=== PATIENT | female | born 1950 | race Caucasian/White ===

== ENCOUNTER → 2016-11-20 | Outpatient (CLI) | payer MEDICARE, OTHER ==
[~2016-11-20] MED LIST: ALPR0.5T7 PO; AMLO5TAB2 PO; ASP81TEC PO; ATRV10T PO; CHOL20003 PO; CLIN300C11 PO; CLOP75TA28 PO; ENAL20TA PO; METO-272 PO; MTP50T PO; PRAM0.12 PO; TRAM50TA2 PO; VNL75CCR PO; ZLP10T PO
--- NOTE | 2016-11-20 11:58 | Diagnostic Imaging Report ---
Examination: DEXA scan. Indication: Osteopenia Technique: Bone mineral density estimated based on dual energy radiography over the lumbar spine and femoral necks, was performed. Findings: The lumbar spine T-score is -0.4. T score over the left femoral neck is -0.6 and on the right is -0.2. Impression: Normal bone mineral density.. Dictated by: Dictated on workstation # [id number]
== END ==
LOC: RAD 10:49
PROVIDERS: ATTEND Family Medicine
DX: Z13.820 Encounter for screening for osteoporosis (principal); Z78.0 Asymptomatic menopausal state
CPT/HCPCS: 77080

== ENCOUNTER 2019-08-04 05:36 | Outpatient (CLI) | payer MEDICARE, OTHER ==
[~2019-08-04] VITALS: Ht 157 cm; Wt 72.7 kg
[2019-08-04] MEDS ORDERED: ASPI-999 PO (12:17)
[2019-08-04] MEDS ORDERED: PRAM0.128 PO (12:17)
[2019-08-04] MEDS ORDERED: CNC1KV IM (12:17)
[2019-08-04] MEDS ORDERED: ZOLP10TA5 PO (12:50)
[2019-08-04] MEDS ORDERED: METO-370 PO (12:50)
[2019-08-04] MEDS ORDERED: ENAL20TA PO (12:50)
== END 2019-08-04 12:32 | disposition home or self-care (01) ==
LOC: PREOP 05:36
PROVIDERS: ATTEND Urology
DX: Z01.818 Encounter for other preprocedural examination (principal)

== ENCOUNTER 2019-08-09 06:16 | Day surgery (SDC) | payer MEDICARE, OTHER ==
[2019-08-09] VITALS (9 sets, daily range): BP systolic 93–170; BP diastolic 62–94
[~2019-08-09] VITALS: Ht 157 cm; Wt 72.7 kg
[~2019-08-09 06:16] MED LIST changes: +ASPI-999 PO; +CNC1KV IM; +METO-370 PO; +PRAM0.128 PO; +ZOLP10TA5 PO
[2019-08-09] MEDS ORDERED: LACTATED RINGERS 1,000 ML IV PRN (06:28)
[2019-08-09] MEDS ORDERED: cefTRIAXone FOR IV USE 1,000 MG in WATER (STERILE) FOR INJECTION 10 ML IV ONE (06:30)
[2019-08-09] MEDS ORDERED: CATHETER FLUSH 10 ML SYR IV PRN (06:45)
[2019-08-09] MEDS ORDERED: ONDANSETRON 4 MG/2 ML (SDV) Z0FRAN ONE (06:54)
[2019-08-09] MEDS ORDERED: proPOfol 200 MG/20 ML (DIPRIVAN) VIAL IV ONE (06:54)
[2019-08-09] MEDS ORDERED: fentaNYL INJECTION 100 MCG/2 ML AMP ONE (06:55)
[2019-08-09] MEDS ORDERED: MIDAZOLAM 2 MG/2 ML (VERSED) VIAL ONE (06:55)
[2019-08-09] MEDS ORDERED: LIDOCAINE PF 2% 5 ML (XYLOCAINE) VIAL ONE (06:55)
--- NOTE | 2019-08-09 08:04 | Progress Note-Pre Operative ---
Pre-Operative Progress Note H&P Reviewed The H&P was reviewed, patient examined and no changes noted. Date Seen by Provider: Aug 09, 2019 Time Seen by Provider: 08:03 Date H&P Reviewed: Aug 09, 2019 Time H&P Reviewed: 08:03 Pre-Operative Diagnosis: MIXED INCONTINENCE, ISD, AND OAB DAVID LYNN MD Aug 09, 2019 08:04
--- NOTE | 2019-08-09 08:05 | Progress Note-Post Operative ---
Post-Operative Progess Note Surgeon (s)/Food Service Tray Attendant (s) Surgeon DAVID LYNN MD Food Service Tray Attendant: NONE Pre-Operative Diagnosis MIXED INCONTINENCE, ISD, AND OAB Post-Operative Diagnosis SAME Procedure & Operative Findings Date of Procedure 08/09/19 Procedure Performed/Findings MACROPLASTIQUE IMPLANT Anesthesia Type GENERAL Estimated Blood Loss Estimated blood loss (mL): NEGLIGIBLE Specimens/Packing Specimens Removed NONE Packing: NONE DAVID LYNN MD Aug 09, 2019 08:05
--- NOTE | 2019-08-09 08:07 | Discharge Inst-Urology ---
Discharge Inst-Urology Reconcile Patient Problems Problems Reviewed?: Yes Final Diagnosis INCONTINENCE Patient Instructions/Follow Up Plan/Assessment/Instructions Please make appointment to been seen in office in 4 weeks. Showers, no bath for 2 weeks In 48 hours, if no bleeding, may resume ASA and Clopidrogel Keep bowels soft and moving Increase oral fluids for 48 hours and then as needed. Diet and Activity as tolerated. If questions or concerns contact your physician Or seek help at emergency department. DAVID LYNN MD Aug 09, 2019 08:07
[2019-08-09] MEDS ORDERED: SEVOFLURANE (ULTANE) 15 ML INHAL SOLN ONE (08:29)
[2019-08-09] MEDS ORDERED: morphine INJ 10 MG/ML 1ML (SYR OR VIAL) IVP ONE (08:45)
[2019-08-09] MEDS ORDERED: ONDANSETRON 4 MG/2 ML (SDV) Z0FRAN IVP PRN (08:45)
[2019-08-09] MEDS ORDERED: MEPERIDINE (DEMEROL) INJ 50 MG/ML IVP ONE (08:45)
[2019-08-09] MEDS ORDERED: PHEN-640 PO (09:12)
[2019-08-09] MEDS ORDERED: NITR-65 PO (09:12)
--- NOTE | 2019-08-09 10:50 | Anesthesia-General Post-Op ---
General Patient Condition Mental Status/LOC: Same as Preop Cardiovascular: Satisfactory Nausea/Vomiting: Absent Respiratory: Satisfactory Pain: Controlled Complications: Absent Post Op Complications Complications None Follow Up Care/Instructions Patient Instructions None needed. Anesthesia/Patient Condition Patient Condition Patient is doing well, no complaints, stable vital signs, no apparent adverse anesthesia problems. No complications reported per nursing. CRISTINA CRANDALL CRNA Aug 09, 2019 10:50
--- NOTE | 2019-08-09 15:01 | OPERATIVE REPORT ---
DATE OF SERVICE: 08/09/2019 PREOPERATIVE DIAGNOSES: Mixed incontinence with intrinsic sphincter deficiency and overactive bladder. POSTOPERATIVE DIAGNOSES: Mixed incontinence with intrinsic sphincter deficiency and overactive bladder. OPERATION PERFORMED: Macroplasty implant. SURGEON: Jarrett Lynn MD ANESTHESIA: General. RESEARCH CONSULTANT: None. COMPLICATIONS: None. DESCRIPTION OF PROCEDURE: Under satisfactory general anesthesia, the patient in lithotomy position, genitalia were prepped and draped in the usual sterile fashion. Cystoscope was introduced in the bladder and the Macroplastique implant was injected at the 6 o'clock position at the mid urethra causing very good elevation, a full syringe being injected. Then, half a syringe at the 2 o'clock and half at the 10 o'clock position, there was excellent coaptation of the mid urethra. I did a manual Valsalva maneuver after removing the cystoscope and it was negative. Re-inserted the cystoscope to drain the bladder. The patient tolerated the procedure and anesthesia well and was sent to recovery room in stable condition, no bleeding. Job ID: [id number] DocumentID: [id number] Dictated Date: 08/09/2019 08:37:02 Package Line Operator Date: 08/09/2019 15:00:49 Dictated By: JARRETT LYNN MD
== END 2019-08-09 10:09 | disposition home or self-care (01) ==
LOC: SDC 06:16
PROVIDERS: ATTEND Urology
DX: N39.46 Mixed incontinence (principal); N36.42 Intrinsic sphincter deficiency (ISD); N32.81 Overactive bladder; I10 Essential (primary) hypertension; I73.9 Peripheral vascular disease, unspecified; Z79.899 Other long term (current) drug therapy
CPT/HCPCS: 87081

== ENCOUNTER 2019-12-22 05:41 | Outpatient (CLI) | payer MEDICARE, OTHER ==
[~2019-12-22] VITALS: Ht 157.5 cm; Wt 81.8 kg
[~2019-12-22 05:41] MED LIST changes: -METO-370 PO; +METO50TA7 PO; +NITR-65 PO; +PHEN-640 PO; -TRAM50TA2 PO; +TRM50T PO
[2019-12-22] MEDS ORDERED: CLOP75TA28 PO (09:58)
== END 2019-12-22 10:06 | disposition home or self-care (01) ==
LOC: PREOP 05:41
PROVIDERS: ATTEND Urology
DX: Z01.818 Encounter for other preprocedural examination (principal)

== ENCOUNTER 2019-12-27 07:03 | Day surgery (SDC) | payer MEDICARE, OTHER ==
[2019-12-27] VITALS (9 sets, daily range): BP systolic 119–150; BP diastolic 62–82
[~2019-12-27] VITALS: Ht 157.5 cm; Wt 81.8 kg
--- NOTE | 2019-12-27 07:13 | Progress Note-Pre Operative ---
Pre-Operative Progress Note H&P Reviewed The H&P was reviewed, patient examined and no changes noted. Date Seen by Provider: Dec 27, 2019 Time Seen by Provider: 07:12 Date H&P Reviewed: Dec 27, 2019 Time H&P Reviewed: 07:13 Pre-Operative Diagnosis: REFRACTORY OAB AND URGENCY DAVID LYNN MD Dec 27, 2019 07:13
[2019-12-27] MEDS ORDERED: cefTRIAXone FOR IV USE 1,000 MG in WATER (STERILE) FOR INJECTION 10 ML IV ONE (07:15)
[2019-12-27] MEDS ORDERED: LACTATED RINGERS 1,000 ML IV PRN (07:15)
[2019-12-27] MEDS ORDERED: ONBOTOX 100 UNITS/NS 10 ML INJ ONE ×2 (07:45)
[2019-12-27] MEDS ORDERED: fentaNYL INJECTION 100 MCG/2 ML AMP ONE (09:34)
[2019-12-27] MEDS ORDERED: DEXAMETHASONE 10 MG/ML (DECADRON) 1 ML VIAL ONE (09:34)
[2019-12-27] MEDS ORDERED: proPOfol 200 MG/20 ML (DIPRIVAN) VIAL IV ONE (09:34)
[2019-12-27] MEDS ORDERED: ONDANSETRON 4 MG/2 ML (SDV) Z0FRAN ONE (09:34)
[2019-12-27] MEDS ORDERED: LIDOCAINE PF 2% 5 ML (XYLOCAINE) VIAL ONE (09:34)
[2019-12-27] MEDS ORDERED: SEVOFLURANE (ULTANE) 15 ML INHAL SOLN ONE (09:34)
--- NOTE | 2019-12-27 10:32 | Progress Note-Post Operative ---
Post-Operative Progess Note Surgeon (s)/System Operation Superintendent (s) Surgeon DAVID LYNN MD System Operation Superintendent: NONE Pre-Operative Diagnosis REFRACTORY OAB AND URGENCY Post-Operative Diagnosis SAME Procedure & Operative Findings Date of Procedure 12/27/19 Procedure Performed/Findings CYSTOSCOPY WITH BOTOX INJECTION Anesthesia Type GENERAL Estimated Blood Loss Estimated blood loss (mL): NEGLIGIBLE Specimens/Packing Specimens Removed NONE Packing: NONE DAVID LYNN MD Dec 27, 2019 10:32
--- NOTE | 2019-12-27 10:36 | Discharge Inst-Urology ---
Discharge Inst-Urology Reconcile Patient Problems Problems Reviewed?: Yes Final Diagnosis REFRACTORY OAB AND URGENCY Patient Instructions/Follow Up Plan/Assessment/Instructions Please make appointment to been seen in office in 4 weeks. Continue Myrbetriq only, no Vesicare for 2 weeks only and hold if retention, difficult urination or hesitancy In 72 hours, if no bleeding, may resume Plavix Increase oral fluids for 48 hours and then as needed. Diet and Activity as tolerated. If questions or concerns contact your physician Or seek help at emergency department. DAVID LYNN MD Dec 27, 2019 10:36
[2019-12-27] MEDS ORDERED: ONDANSETRON 4 MG/2 ML (SDV) Z0FRAN IVP PRN (10:45)
[2019-12-27] MEDS ORDERED: morphine INJ 10 MG/ML 1ML (SYR OR VIAL) IVP ONE (10:45)
--- NOTE | 2019-12-27 12:25 | NUR ---
HAS BEEN ALERT, RESTING QUIETLY IN BED AND UP WITH ASSIST X2 TO VOID WITHOUT PROBLEM. DENIES COMPLAINTS. TAKING PO FLUIDS WITHOUT PROBLEM. REQUESTING DISMISSAL.
--- NOTE | 2019-12-27 13:08 | Anesthesia-General Post-Op ---
General Patient Condition Mental Status/LOC: Same as Preop Cardiovascular: Satisfactory Nausea/Vomiting: Absent Respiratory: Satisfactory Pain: Controlled Complications: Absent Post Op Complications Complications None Follow Up Care/Instructions Patient Instructions None needed. Anesthesia/Patient Condition Patient Condition Patient was [place] after the [place] [facility] [place] and she was doing well, no complaints, stable vital signs, no apparent adverse anesthesia problems. MARGI GARCIA DO Dec 27, 2019 13:08
--- NOTE | 2019-12-27 13:48 | OPERATIVE REPORT ---
DATE OF SERVICE: 12/27/2019 PREOPERATIVE DIAGNOSES: Refractory overactive bladder and urgency. POSTOPERATIVE DIAGNOSES: Refractory overactive bladder and urgency. OPERATION PERFORMED: Cystoscopy with injection of Botox. SURGEON: Jarrett Lynn MD ANESTHESIA: General. COMPLICATIONS: None. DESCRIPTION OF PROCEDURE: Under satisfactory general anesthesia, the patient in lithotomy position, genitalia were prepped and draped in the usual sterile fashion. A cystoscope was introduced in the bladder and was irrigated free of debris. I left the bladder half full and then injected the Botox starting just above the trigone starting from the left side, working my way to the right side, then moved above it. A total of 100 units of Botox was injected using the described technique into the detrusor muscle. There was very minimal bleeding. The bladder was evacuated. Cystoscope was removed. The patient tolerated the procedure and anesthesia well and was sent to recovery room in stable condition. Job ID: [id number] DocumentID: [id number] Dictated Date: 12/27/2019 10:37:42 Appliance Line Assembler Date: 12/27/2019 13:47:43 Dictated By: JARRETT LYNN MD
[2019-12-27] MEDS ORDERED: NITR-65 PO (14:06)
[2019-12-27] MEDS ORDERED: PHEN-640 PO (14:08)
== END 2019-12-27 12:25 | disposition home or self-care (01) ==
LOC: SDC 07:03
PROVIDERS: ATTEND Urology
DX: N32.81 Overactive bladder (principal); R39.15 Urgency of urination; N39.46 Mixed incontinence; I10 Essential (primary) hypertension; I73.9 Peripheral vascular disease, unspecified; K21.9 Gastro-esophageal reflux disease without esophagitis; F41.9 Anxiety disorder, unspecified; F32.9 Major depressive disorder, single episode, unspecified; Z11.2 Encounter for screening for other bacterial diseases; Z79.899 Other long term (current) drug therapy
CPT/HCPCS: 87081

== ENCOUNTER 2020-03-23 08:48 | Outpatient (RCR) | payer MEDICARE, OTHER ==
[~2020-03-23] VITALS: Ht 157.5 cm; Wt 81.8 kg
[~2020-03-23 08:48] MED LIST changes: +ATOR20TA66 PO; +CHOL500050 PO; +DULO60CA59 PO; +GABA-486 PO; +MIRT45TA75 PO; +OMEP20CA18 PO; +PRAM0.252 PO; +TRZ50T PO
== END 2020-03-23 14:42 | disposition home or self-care (01) ==
LOC: PREOP 08:48
PROVIDERS: ATTEND Urology
DX: Z01.818 Encounter for other preprocedural examination (principal); Z11.59 Encounter for screening for other viral diseases; R39.15 Urgency of urination
CPT/HCPCS: 87635

== ENCOUNTER 2020-03-27 06:03 | Day surgery (SDC) | payer MEDICARE, OTHER ==
[2020-03-27] VITALS (9 sets, daily range): BP systolic 104–143; BP diastolic 61–79
[~2020-03-27] VITALS: Ht 157.5 cm; Wt 81.8 kg
[2020-03-27] MEDS ORDERED: LACTATED RINGERS 1,000 ML IV PRN (06:06)
--- OUTSIDE RECORDS SUMMARY | 2020-03-27 06:08 | XMS REPORT ---
Author Author Kenya Dennison Doctor Organization [facility] Address Unknown Phone Unavailable Care Team Providers Care Sander Hand Name Role Phone Migration, Doctor Unavailable Unavailable PROBLEMS Type Condition ICD9-CM Code MXM38-CM Code Onset Dates Condition S tatus SNOMED Code Problem Primary insomnia F51.01 Active 193 401164 Problem Atherosclerotic occlusive disease I70.90 Active 541997355 Problem Urge incontinence N39.41 Active 16 8808287 Problem Prediabetes R73.09 Active 7917540 Problem Vitamin D deficiency E55.9 Active 21903714 Problem Restless leg syndrome G25.81 Active 86646601 Problem Major depressive disorder F32.9 Acti ve 422268724 Problem Generalized anxiety disorder F41.1 A ctive 20979828 Problem Essential hypertension I10 Active 48452432 Problem Major depressive disorder, recurrent, moderate F33 .1 Active 56655973 Problem Dyslipidemia E78.5 Active 5104961 07 Problem Irritable bowel syndrome with diarrhea K58.0 Active 73127406 Problem Mixed stress 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 Active 138695071 Problem Other chronic pain G89.29 Active 8 5665358 Problem Low back pain M54.5 Active 957561 009 ALLERGIES No Information ENCOUNTERS Encounter Location Date Diagnosis [facility] [address] [facility] [id number] [address] [place] [address] Apr, [facility] [address] [facility] [id number] [address] [place] [address] March, [facility] [address] [facility] [id number] [address] [place] [address] March, Generalized anxiety disorder F41.1 ; Primary insomnia F51.01 and Major depressive disorder, recurrent, moderate F33.1 [facility] [address] [facility] [id number] [address] [place] [address] March, Generalized anxiety disorder F41.1 [facility] [address] [place] [id number] March, Restless leg syndrome G25.81 [place] [address] [place] [address] Jan, Generalized anxiety disorder F41.1 ; Primary insomnia F51.01 and Major depressive disorder, recurrent, moderate F33.1 [place] [address] [place] [address] Jan, [place] [address] [address] 05 Jan, 2020 Generalized anxiety disorder F41.1 ; Primary insomnia F51.01 and Major depressive disorder, recurrent, moderate F33.1 [place] [address] [place] [id number] Dec, Essential hypertension I10 [place] [address] [place] [address] Dec, Major depressive disorder, r ecurrent, moderate F33.1 and Generalized anxiety disorder F41.1 [place] [address] [place] [address] Dec, [place] [address] [place] [id number] Dec, Prediabetes R73.09 ; Essenti al hypertension I10 and Dyslipidemia E78.5 [place] [address] [place] [id number] 19 Dec, 2019 Prediabetes R73.09 ; Essenti al hypertension I10 ; Dyslipidemia E78.5 ; Major depressive disorder F32.9 ; Primary insomnia F51.01 ; Epigastric pain R10.13 and Generalized anxiety disorder F41.1 [place] [address] [place] [id number] 14 Dec, 2019 Major depressive disorder F3 2.9 and Generalized anxiety disorder F41.1 [place] [address] [place] [address] 07 Dec, 2019 [place] [id number] [facility] [id number] [place] [address] 04 Dec, 2019 Generalized anxiety disorder F41.1 and Major depressive disorder, recurrent, moderate F33.1 [place] [address] [place] [id number] [address] [place] [address] Nov, Major depressive disorder, r ecurrent, moderate F33.1 and Generalized anxiety disorder F41.1 [place] [address] [facility] [id number] [address] [place] [address] Nov, Major depressive disorder F3 2.9 ; Essential hypertension I10 ; Primary insomnia F51.01 ; Urge incontinence N39.41 ; Dyslipidemia E78.5 ; Other chronic pain G89.29 and Onychomycosis of toenail B35.1 [facility] [address] [place] [id number] [address] [place] [id number] Nov, Dental examination Z01.20 ; Oral health maintenance status requiring routine preventive dental care K08.9 and Caries K02.9 [place] [address] [address] Sep, Dyslipidemia E78.5 [place] [address] [place] [id number] [address] [place] [address] 17 Sep, 2017 Prediabetes R73.09 ; Dyslipi demia E78.5 and Essential hypertension I10 [place] [id number] [place] [address] Sep, [place] [address] [place] [id number] [place] [address] Sep, Prediabetes R73.09 ; Essenti al hypertension I10 ; Dyslipidemia E78.5 and Urge incontinence N39.41 [place] [address] [place] [id number] [address] [place] [address] Jan, Other chronic pain G89.29 [place] [address] [place] [address] [address] Jan, [facility] [address] [facility] [id number] [address] [place] [address] Jan, Capillary hemangioma D18.00 [facility] [address] [id number] [address] [place] [id number] Jan, Dental examination Z01.20 [facility] [address] [facility] [id number] [address] [place] [address] Dec, [facility] [address] [facility] [id number] [address] [place] [address] Dec, Low back pain M54.5 ; Other chronic pain G89.29 and Mixed stress 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 [place] [address] [facility] [id number] [address] [place] [address] Dec, [facility] [address] [facility] [id number] [address] [place] [address] Dec, Urge incontinence N39.41 [facility] [address] [facility] [id number] [address] [place] [address] Nov, Colon cancer screening Z12.1 1 ; Medicare annual wellness visit, subsequent Z00.00 and Osteoporosis screening Z13.820 [facility] [address] [place] [id number] [address] [place] [address] Nov, [facility] [address] [facility] [id number] [address] [place] [address] Nov, Medicare annual wellness vis it, subsequent Z00.00 ; Osteoporosis screening Z13.820 ; Colon cancer screening Z12.11 and Encounter for immunization Z23 [facility] [address] [facility] [id number] [address] [place] [address] Oct, Decreased circulation in fin gers or toes R09.89 [facility] [address] [facility] [id number] [address] [place] [id number] 19 Dec, 2016 Decreased pulse R09.89 [facility] [address] [address] Oct, Abrasion, left lesser toe(s) , initial encounter S90.415A and Local infection of the skin and subcutaneous tissue, unspecified L08.9 [place] [address] [address] Aug, Dyslipidemia E78.5 ; Vitamin D deficiency E55.9 and Essential hypertension I10 [place] [address] [address] Aug, Vitamin D deficiency E55.9 ; Dyslipidemia E78.5 ; Essential hypertension I10 ; Allergic contact dermatitis due to metals L23.0 ; Primary insomnia F51.01 ; Urge incontinence N39.41 and Restless leg syndrome G25.81 [place] [address] [address] Jul, [place] [address] [address] Jul, [facility] [address] [address] May, Acute maxillary sinusitis, r ecurrence not specified J01.00 and Impacted cerumen of right ear H61.21 [place] [id number] [address] [place] [address] Apr, [facility] [address] [place] [id number] [address] [place] [id number] Dec, Encounter for dental examina tion Z01.20 [place] [address] [address] Dec, Vitamin D deficiency E55.9 [place] [address] [address] 18 Dec, 2015 Other and unspecified hyperl ipidemia 272.4 ; Vitamin D deficiency E55.9 and Prediabetes 790.29 [place] [address] [place] [id number] [address] [place] [address] 18 Dec, 2015 Vitamin D deficiency E55.9 [place] [address] [address] 16 Oct, 2015 Eustachian tube dysfunction, right H69.81 ; Seasonal affective disorder F39 and Encounter for immunization Z23 [facility] [address] [address] Sep, Acute pharyngitis, unspecifi ed J02.9 ; Otitis media H66.90 ; Sinusitis J32.9 and Seasonal allergies J30.2 [place] [address] [address] 28 Aug, 2015 [place] [address] [address] Aug, Primary insomnia F51.01 ; Re stless leg syndrome G25.81 ; Urge incontinence N39.41 and Unspecified hearing loss, bilateral H91.93 [place] [address] [address] 23 Apr, 2015 Breast cancer screening V76. 10 and Osteoporosis screening V82.81 [place] [address] [address] 17 Apr, 2015 Breast cancer screening V76. 10 ; Routine gynecological examination V72.31 ; Colon cancer screening V76.51 and Osteoporosis screening V82.81 [place] [address] [place] [id number] [address] [place] [address] 16 Apr, 2015 Other and unspecified hyperl ipidemia 272.4 and Prediabetes 790.29 [place] [address] [address] 15 Apr, 2015 Unspecified vitamin D defici ency 268.9 and Unspecified essential hypertension 401.[address] [address] Apr, Left foot pain 729.5 ; Unspe cified vitamin D deficiency 268.9 ; Overactive bladder 596.51 ; Insomnia, unspecified 780.52 ; Unspecified essential hypertension 401.9 ; Chronic diarrhea 787.91 ; TDAP DX V06.1 and PCV-13 (PREVNAR) DX V03.82 [facility] [address] [id number] [address] [place] [address] Jan, [facility] [address] [id number] [address] [place] [address] Jan, [facility] [address] [id number] [address] [place] [address] Nov, [facility] [address] [id number] [address] [place] [address] Nov, [facility] [address] [id number] [address] [place] [address] Sep, [facility] [address] [id number] [address] [place] [address] Sep, [facility] [address] [id number] [address] [place] [address] Aug, [facility] [address] [id number] [address] [place] [address] Aug, [facility] [address] [id number] [address] [place] [address] Jun, [facility] [address] [id number] [address] [place] [id number] Jun, [facility] [address] [id number] [address] [place] [address] May, [facility] [address] [id number] [address] [place] [address] May, [facility] [address] [id number] [address] [place] [address] Apr, [facility] [place] [facility] [address] [id number] [address] [place] [address], [place] [address] Apr, [facility] [address] [id number] [address] [place] [address], [place] [address] Apr, [facility] [address] [id number] [address] [place] [address], [place] [address] Apr, [facility] [address] [id number] [address] [place] [address], [place] [address] Apr, [facility] [address] [id number] [address] [place] [address], [place] [address] Apr, [facility] [address] [id number] [address] [place] [address], [place] [address] Apr, [facility] [address] [id number] [address] [place] [address], [place] [address] Apr, [facility] [address] [id number] [address] [place] [address], [place] [address] March, [facility] [address] [id number] [address] [place] [address], [place] [address] March, [facility] [address] [id number] [address] [place] [address], [place] [address] Dec, [facility] [address] [id number] [address] [place] [address], [place] [address] Dec, [facility] [address] [id number] [address] [place] [address], [place] [address] Nov, [facility] [address] [id number] [address] [place] [address], [place] [address] Nov, [facility] [address] [id number] [address] [place] [address], [place] [address] Nov, [facility] [address] [id number] [address] [place] [address], [place] [address] Nov, [facility] [address] [id number] [address] [place] [address], [place] [address] 16 Oct, 2013 [facility] [address] [id number] [address] [place] [address], [place] [address] 16 Oct, 2013 [facility] [place] [facility] [address] [id number] [address] [place] [address], [place] [address] Sep, [facility] [address] [id number] [address] [place] [address], [place] [address] Sep, [facility] [place] [facility] [address] [id number] [address] [place] [address], [place] [address] Sep, [facility] [address] [id number] [address] [place] [address], [place] [address] Sep, [facility] [address] [id number] [address] [place] [address], [place] [address] Sep, [facility] [address] [id number] [address] [place] [address], [place] [address] Sep, [facility] [address] [id number] [address] [place] [address], [place] [address] Sep, [facility] [address] [id number] [address] [place] [address], [place] [address] Sep, [facility] [address] [id number] [address] [place] [address] Sep, [facility] [address] [id number] [address] [place] [address] Aug, [facility] [place] [facility] [address] [id number] [address] [place] [address] Aug, [facility] [place] [facility] [address] [id number] [address] [place] [address], [place] [address] Aug, [facility] [place] [facility] [address] [id number] [address] [place] [address] 18 Aug, 2013 [facility] [place] [facility] [address] [id number] [address] [place] [address] Aug, [facility] [place] [facility] [address] [id number] [address] [place] [address], [place] [address] 16 Aug, 2013 [facility] [address] [id number] [address] [place] [address], [place] [address] Aug, [facility] [address] [id number] [address] [place] [address], [place] [address] Aug, [facility] [address] [id number] [address] [place] [address], [place] [address] Jul, [facility] [address] [id number] [address] [place] [address], [place] [address] Jun, [facility] [address] [id number] [address] [place] [address], [place] [address] Jun, [facility] [address] [id number] [address] [place] [address], [place] [address] Jun, [facility] [address] [id number] [address] [place] [address], [place] [address] Jun, [facility] [address] [id number] [address] [place] [address], [place] [address] March, [facility] [address] [id number] [address] [place] [address], [place] [address] March, [facility] [address] [id number] [address] [place] [address], [place] [address] March, [facility] [address] [id number] [address] [place] [address], [place] [address] March, [facility] [address] [id number] [address] [place] [address], [place] [address] March, [facility] [address] [id number] [address] [place] [address], [place] [address] Jan, [facility] [address] [id number] [address] [place] [address], [place] [address] Jan, [facility] [address] [id number] [address] [place] [address], [place] [address] Dec, [facility] [address] [id number] [address] [place] [address], [place] [address] Nov, [facility] [address] [id number] [address] [place] [address], [place] [address] Nov, [facility] [address] [id number] [address] [place] [address], [place] [address] Oct, [facility] [address] [id number] [address] [place] [address], [place] [address] Oct, [facility] [address] [id number] [address] [place] [address], [place] [address] Oct, [facility] [address] [id number] [address] [place] [address], [place] [address] Oct, [facility] [address] [id number] [address] [place] [address], [place] [address] Sep, [facility] [address] [id number] [address] [place] [address], [place] [address] Sep, [facility] [address] [id number] [address] [place] [address], [place] [address] Sep, [facility] [address] [id number] [address] [place] [address], [place] [address] Sep, [facility] [address] [id number] [address] [place] [address], [place] [address] Aug, [facility] [address] [id number] [address] [place] [address], [place] [address] Aug, [facility] [address] [id number] [address] [place] [address], [place] [address] Aug, [facility] [address] [id number] [address] [place] [address], [place] [address] Aug, [facility] [address] [id number] [address] [place] [address], [place] [address] Aug, [facility] [address] [id number] [address] [place] [address], [place] [address] Aug, IMMUNIZATIONS No Known Immunizations SOCIAL HISTORY Never Assessed REASON FOR VISIT PLAN OF CARE VITAL SIGNS Height 62 in 2013-06-08 Weight 191.4 lbs 2013-06-08 Heart Rate 76 bpm 2013-06-08 Blood pressure systolic 122 mmHg 2013-06-08 Blood pressure diastolic 78 mmHg 2013-06-08 MEDICATIONS Unknown Medications RESULTS No Results PROCEDURES No Known procedures INSTRUCTIONS MEDICATIONS ADMINISTERED No Known Medications MEDICAL (GENERAL) HISTORY Type Description Date Medical History Post Cholecystectomy early Medical History Hyperlipidemia Medical History Hypertension Medical History Fibromyalgia Medical History bladder incontinence Surgical History hysterectomy Surgical History cholecystectomy Surgical History 3 ballons in left leg at [facility] Oct 2016 Surgical History bladder Procedure Hospitalization History Coronary angiography-30% blockage Hospitalization History cardiac stents 10/24/16
--- OUTSIDE RECORDS SUMMARY | 2020-03-27 06:08 | XMS REPORT ---
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 Name Role Phone Migration, Doctor Unavailable Unavailable PROBLEMS Type Condition ICD9-CM Code HZC08-EO Code Onset Dates Condition S tatus SNOMED Code Problem Primary insomnia F51.01 Active 193 952725 Problem Atherosclerotic occlusive disease I70.90 Active 065409611 Problem Urge incontinence N39.41 Active 16 3428659 Problem Prediabetes R73.09 Active 9731026 Problem Vitamin D deficiency E55.9 Active 46134536 Problem Restless leg syndrome G25.81 Active 90602877 Problem Major depressive disorder F32.9 Acti ve 716002737 Problem Generalized anxiety disorder F41.1 A ctive 33887993 Problem Essential hypertension I10 Active 90495790 Problem Major depressive disorder, recurrent, moderate F33 .1 Active 32395230 Problem Dyslipidemia E78.5 Active 2363793 07 Problem Irritable bowel syndrome with diarrhea K58.0 Active 67834228 Problem Mixed stress 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 Active 719860131 Problem Other chronic pain G89.29 Active 8 1662886 Problem Low back pain M54.5 Active 642592 009 ALLERGIES No Information ENCOUNTERS Encounter Location Date Diagnosis [facility] [address] [id number] [address] [place] [phone] March, Generalized anxiety disorder F41.1 [facility] [address] [facility] [place] [id number] [address] [place] [phone] March, Restless leg syndrome G25.81 [facility] [address] [facility] [place] [id number] [address] [place] [phone] Jan, Generalized anxiety disorder F41.1 ; Primary insomnia F51.01 and Major depressive disorder, recurrent, moderate F33.1 [facility] [address] [facility] [place] [id number] [address] [place] [phone] Jan, [place] [address] [facility] [place] [id number] [address] [place] [id number] 05 Jan, 2020 Generalized anxiety disorder F41.1 ; Primary insomnia F51.01 and Major depressive disorder, recurrent, moderate F33.1 [place] [address] [place] [id number] [address] [place] [phone] 27 Dec, 2019 Essential hypertension I10 [place] [address] [id number] [place] [place] [address] 27 Dec, 2019 Major depressive disorder, r ecurrent, moderate F33.1 and Generalized anxiety disorder F41.1 [place] [address] [address] 24 Dec, 2019 [place] [address] [place] [id number] [place] [address] 21 Dec, 2019 Prediabetes R73.09 ; Essenti al hypertension I10 and Dyslipidemia E78.5 [place] [address] [place] [address] 19 Dec, 2019 Prediabetes R73.09 ; Essenti al hypertension I10 ; Dyslipidemia E78.5 ; Major depressive disorder F32.9 ; Primary insomnia F51.01 ; Epigastric pain R10.13 and Generalized anxiety disorder F41.1 [place] [address] [place] [address] 14 Dec, 2019 Major depressive disorder F3 2.9 and Generalized anxiety disorder F41.1 [place] [address] [id number] [address] [place] [id number] 07 Dec, 2019 [place] [address] [id number] [place] [phone] 04 Dec, 2019 Generalized anxiety disorder F41.1 and Major depressive disorder, recurrent, moderate F33.1 [place] [address] [place] [id number] [address] [place] [phone] Nov, Major depressive disorder, r ecurrent, moderate F33.1 and Generalized anxiety disorder F41.1 [facility] [address] [facility] [place] [id number] [address] [place] [address] Nov, Major depressive disorder F3 2.9 ; Essential hypertension I10 ; Primary insomnia F51.01 ; Urge incontinence N39.41 ; Dyslipidemia E78.5 ; Other chronic pain G89.29 and Onychomycosis of toenail B35.1 [facility] [address] [id number] [address] [place] [id number] Nov, Dental examination Z01.20 ; Oral health maintenance status requiring routine preventive dental care K08.9 and Caries K02.9 [facility] [address] [facility] [place] [id number] [address] [place] [phone] Sep, Dyslipidemia E78.5 [facility] [address] [facility] [place] [id number] [address] [place] [phone] 17 Sep, 2017 Prediabetes R73.09 ; Dyslipi demia E78.5 and Essential hypertension I10 [facility] [address] [facility] [place] [id number] [address] [place] [phone] Sep, [facility] [address] [facility] [place] [id number] [address] [place] [phone] Sep, Prediabetes R73.09 ; Essenti al hypertension I10 ; Dyslipidemia E78.5 and Urge incontinence N39.41 [facility] [address] [facility] [place] [id number] [address] [place] [phone] Jan, Other chronic pain G89.29 [facility] [address] [facility] [place] [id number] [address] [place] [phone] Jan, [facility] [address] [facility] [place] [id number] [address] [place] [phone] Jan, Capillary hemangioma D18.00 [facility] [address] [id number] [address] [place] [address] [id number] Jan, Dental examination Z01.20 [facility] [address] [facility] [place] [id number] [address] [place] [phone] Dec, [place] [address] [place] [id number] [address] [place] [address] Dec, Low back pain M54.5 ; Other chronic pain G89.29 and Mixed stress 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 [place] [address] [place] [id number] [address] [place] [address] Dec, [place] [address] [address] Dec, Urge incontinence N39.[address] [address] Nov, Colon cancer screening Z12.1 1 ; Medicare annual wellness visit, subsequent Z00.00 and Osteoporosis screening Z13.[address] [address] Nov, [place] [address] [address] Nov, Medicare annual wellness vis it, subsequent Z00.00 ; Osteoporosis screening Z13.820 ; Colon cancer screening Z12.11 and Encounter for immunization Z23 [facility] [address] [place] [address] Oct, Decreased circulation in fin gers or toes R09.89 [facility] [address] [address] Oct, Decreased pulse R09.89 [facility] [address] [address] 13 Oct, 2016 Abrasion, left lesser toe(s) , initial encounter S90.415A and Local infection of the skin and subcutaneous tissue, unspecified L08.9 [place] [id number] [place] [address] 06 Aug, 2016 Dyslipidemia E78.5 ; Vitamin D deficiency E55.9 and Essential hypertension I10 [place] [address] [place] [id number] [address] [place] [address] 04 Aug, 2016 Vitamin D deficiency E55.9 ; Dyslipidemia E78.5 ; Essential hypertension I10 ; Allergic contact dermatitis due to metals L23.0 ; Primary insomnia F51.01 ; Urge incontinence N39.41 and Restless leg syndrome G25.81 [place] [address] [address] 13 Jul, 2016 [place] [address] [address] 06 Jul, 2016 [facility] [address] [address] May, Acute maxillary sinusitis, r ecurrence not specified J01.00 and Impacted cerumen of right ear H61.[address] [address] Apr, [facility] [address] [place] [phone] 15 Jan, 2016 Encounter for dental examina tion Z01.20 [place] [address] [address] 29 Dec, 2015 Vitamin D deficiency E55.9 [place] [id number] [address] [place] [address] 18 Dec, 2015 Other and unspecified hyperl ipidemia 272.4 ; Vitamin D deficiency E55.9 and Prediabetes 790.29 [place] [address] [place] [id number] [place] [address] 18 Dec, 2015 Vitamin D deficiency E55.9 [place] [address] [address] Oct, Eustachian tube dysfunction, right H69.81 ; Seasonal affective disorder F39 and Encounter for immunization Z23 [facility] [address] [address] Sep, Acute pharyngitis, unspecifi ed J02.9 ; Otitis media H66.90 ; Sinusitis J32.9 and Seasonal allergies J30.[address] [address] Aug, [address] [address] Aug, Primary insomnia F51.01 ; Re stless leg syndrome G25.81 ; Urge incontinence N39.41 and Unspecified hearing loss, bilateral H91.[address] [address] 23 Apr, 2015 Breast cancer screening V76. 10 and Osteoporosis screening V82.[address] [address] 17 Apr, 2015 Breast cancer screening V76. 10 ; Routine gynecological examination V72.31 ; Colon cancer screening V76.51 and Osteoporosis screening V82.[address] [address] 16 Apr, 2015 Other and unspecified hyperl ipidemia 272.4 and Prediabetes 790.[address] [address] 15 Apr, 2015 Unspecified vitamin D defici ency 268.9 and Unspecified essential hypertension 401.[address] [address] 12 Apr, 2015 Left foot pain 729.5 ; Unspe cified vitamin D deficiency 268.9 ; Overactive bladder 596.51 ; Insomnia, unspecified 780.52 ; Unspecified essential hypertension 401.9 ; Chronic diarrhea 787.91 ; TDAP DX V06.1 and PCV-13 (PREVNAR) DX V03.[address] [address] 14 Jan, [address] [place] [address] Jan, [facility] [address] [id number] [address] [place] [address], [place] [address] Nov, [facility] [address] [id number] [address] [place] [address], [place] [address] Nov, [facility] [address] [id number] [address] [place] [address], [place] [address] Sep, [facility] [address] [id number] [address] [place] [address], [place] [address] Sep, [facility] [address] [id number] [address] [place] [address], [place] [address] Aug, [facility] [address] [id number] [address] [place] [address], [place] [address] Aug, [facility] [address] [id number] [address] [place] [address], [place] [address] Jun, [facility] [address] [id number] [address] [place] [address], [place] [address] Jun, [facility] [address] [id number] [address] [place] [address], [place] [address] May, [facility] [address] [id number] [address] [place] [address], [place] [address] May, [facility] [address] [id number] [address] [place] [address], [place] [address] Apr, [facility] [address] [id number] [address] [place] [address], [place] [address] Apr, [facility] [address] [id number] [address] [place] [address], [place] [address] Apr, [facility] [address] [id number] [address] [place] [address], [place] [address] Apr, [facility] [address] [id number] [address] [place] [address], [place] [address] Apr, [facility] [address] [id number] [address] [place] [address], [place] [address] Apr, [facility] [address] [id number] [address] [place] [address], [place] [address] Apr, [facility] [address] [id number] [address] [place] [address], [place] [address] Apr, [facility] [address] [id number] [address] [place] [address], [place] [address] March, [facility] [address] [id number] [address] [place] [address], [place] [address] March, [facility] [address] [id number] [address] [place] [address], [place] [address] Dec, [facility] [address] [id number] [address] [place] [address], [place] [address] Dec, [facility] [address] [id number] [address] [place] [address], [place] [address] Nov, [facility] [address] [id number] [address] [place] [address], [place] [address] Nov, [facility] [address] [id number] [address] [place] [address], [place] [address] Nov, [facility] [address] [id number] [address] [place] [address], [place] [address] Nov, [facility] [address] [id number] [address] [place] [address], [place] [address] Oct, [facility] [address] [id number] [address] [place] [address], [place] [address] Oct, [facility] [address] [id number] [address] [place] [address], [place] [address] Sep, [facility] [address] [id number] [address] [place] [address], [place] [address] Sep, [facility] [address] [id number] [address] [place] [address] Sep, [facility] [address] [id number] [address] [place] [address], [place] [address] Sep, [facility] [address] [id number] [address] [place] [address] Sep, [facility] [address] [id number] [address] [place] [address] 15 Sep, 2013 [facility] [address] [id number] [address] [place] [address] Sep, [facility] [address] [id number] [address] [place] [address], [place] [address] Sep, [facility] [address] [id number] [address] [place] [address] Sep, [facility] [address] [id number] [address] [place] [address] Aug, [facility] [address] [id number] [address] [place] [address], [place] [address] Aug, [facility] [address] [id number] [address] [place] [address] Aug, [facility] [address] [id number] [address] [place] [address] Aug, [facility] [address] [id number] [address] [place] [address] Aug, [facility] [address] [id number] [address] [place] [address] 16 Aug, 2013 [facility] [address] [id number] [address] [place] [address] Aug, [facility] [address] [id number] [address] [place] [phone] Aug, [facility] [address] [id number] [address] [place] [address], [place] [address] Jul, [facility] [address] [id number] [address] [place] [address], [place] [address] Jun, [facility] [address] [id number] [address] [place] [address], [place] [address] Jun, [facility] [address] [id number] [address] [place] [address], [place] [address] Jun, [facility] [address] [id number] [address] [place] [address], [place] [address] Jun, [facility] [address] [id number] [address] [place] [address], [place] [address] March, [facility] [address] [id number] [address] [place] [address], [place] [address] March, [facility] [address] [id number] [address] [place] [address], [place] [address] March, [facility] [address] [id number] [address] [place] [address], [place] [address] March, [facility] [address] [id number] [address] [place] [address], [place] [address] March, [facility] [address] [id number] [address] [place] [address], [place] [address] Jan, [facility] [address] [id number] [address] [place] [address], [place] [address] Jan, [facility] [address] [id number] [address] [place] [address], [place] [address] Dec, [facility] [address] [id number] [address] [place] [address], [place] [address] Nov, [facility] [address] [id number] [address] [place] [address], [place] [address] Nov, [facility] [address] [id number] [address] [place] [address], [place] [address] Oct, [facility] [address] [id number] [address] [place] [address], [place] [address] Oct, [facility] [address] [id number] [address] [place] [address] Oct, [facility] [address] [id number] [address] [place] [phone] Oct, [facility] [address] [id number] [address] [place] [address] Sep, [facility] [address] [id number] [address] [place] [address] Sep, [facility] [address] [id number] [address] [place] [address] Sep, [facility] [address] [id number] [address] [place] [address] Sep, [facility] [address] [id number] [address] [place] [address] Aug, [facility] [address] [id number] [address] [place] [address] Aug, [facility] [address] [id number] [address] [place] [phone] Aug, [facility] [address] [id number] [address] [place] [address] Aug, [facility] [address] [id number] [address] [place] [id number] Aug, [facility] [address] [id number] [address] [place] [phone] Aug, IMMUNIZATIONS No Known Immunizations SOCIAL HISTORY Never Assessed REASON FOR VISIT PLAN OF CARE VITAL SIGNS MEDICATIONS Unknown Medications RESULTS No Results PROCEDURES Procedure Date Ordered Result Body Site US EXAM, BREAST(S) Sep 28, 2013 INSTRUCTIONS MEDICATIONS ADMINISTERED No Known Medications MEDICAL (GENERAL) HISTORY Type Description Date Medical History Post Cholecystectomy early Medical History Hyperlipidemia Medical History Hypertension Medical History Fibromyalgia Medical History bladder incontinence Surgical History hysterectomy 's Surgical History cholecystectomy Surgical History 3 ballons in left leg at [facility] Oct 2016 Surgical History bladder Procedure Hospitalization History Coronary angiography-30% blockage Hospitalization History cardiac stents 10/24/16
--- OUTSIDE RECORDS SUMMARY | 2020-03-27 06:08 | XMS REPORT ---
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 Name Role Phone Migration, Doctor Unavailable Unavailable PROBLEMS Type Condition ICD9-CM Code [id number] Code Onset Dates Condition S tatus SNOMED Code Problem Primary insomnia F51.01 Active 193 181622 Problem Atherosclerotic occlusive disease I70.90 Active 074774884 Problem Urge incontinence N39.41 Active 16 0420424 Problem Prediabetes R73.09 Active 8296409 Problem Vitamin D deficiency E55.9 Active 27279580 Problem Restless leg syndrome G25.81 Active 05364689 Problem Major depressive disorder F32.9 Acti ve 944801032 Problem Generalized anxiety disorder F41.1 A ctive 77713503 Problem Essential hypertension I10 Active 31393201 Problem Major depressive disorder, recurrent, moderate F33 .1 Active 00671048 Problem Dyslipidemia E78.5 Active 6186849 07 Problem Irritable bowel syndrome with diarrhea K58.0 Active 45340204 Problem Mixed stress 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 Active 852204899 Problem Other chronic pain G89.29 Active 8 2852192 Problem Low back pain M54.5 Active 393907 009 ALLERGIES No Information ENCOUNTERS Encounter Location Date Diagnosis [facility] [address] [facility] [id number] [address] [place] [address] Jan, Generalized anxiety disorder F41.1 ; Primary insomnia F51.01 and Major depressive disorder, recurrent, moderate F33.1 [facility] [address] [facility] [id number] [address] [place] [phone] Jan, [facility] [address] [facility] [id number] [address] [place] [address] Dec, Generalized anxiety disorder F41.1 ; Primary insomnia F51.01 and Major depressive disorder, recurrent, moderate F33.1 [facility] [address] [facility] [id number] [address] [place] [address] 27 Dec, 2019 Essential hypertension I10 [place] [address] [place] [id number] 27 Dec, 2019 Major depressive disorder, r ecurrent, moderate F33.1 and Generalized anxiety disorder F41.1 [place] [address] [place] [address] 24 Dec, 2019 [place] [address] [place] [address] 21 Dec, 2019 Prediabetes R73.09 ; Essenti al hypertension I10 and Dyslipidemia E78.5 [address] 19 Dec, 2019 Prediabetes R73.09 ; Essenti al hypertension I10 ; Dyslipidemia E78.5 ; Major depressive disorder F32.9 ; Primary insomnia F51.01 ; Epigastric pain R10.13 and Generalized anxiety disorder F41.1 [place] [address] [address] 14 Dec, 2019 Major depressive disorder F3 2.9 and Generalized anxiety disorder F41.1 [place] [address] [place] [address] 07 Dec, 2019 [place] [address] [place] [id number] 04 Dec, 2019 Generalized anxiety disorder F41.1 and Major depressive disorder, recurrent, moderate F33.1 [place] [address] [place] [id number] Nov, Major depressive disorder, r ecurrent, moderate F33.1 and Generalized anxiety disorder F41.1 [place] [id number] Nov, Major depressive disorder F3 2.9 ; Essential hypertension I10 ; Primary insomnia F51.01 ; Urge incontinence N39.41 ; Dyslipidemia E78.5 ; Other chronic pain G89.29 and Onychomycosis of toenail B35.1 [facility] [address] [id number] [address] [place] [id number] Nov, Dental examination Z01.20 ; Oral health maintenance status requiring routine preventive dental care K08.9 and Caries K02.9 [facility] [address] [id number] [address] [place] [address] Sep, Dyslipidemia E78.5 [facility] [address] [id number] [address] [place] [id number] 17 Sep, 2017 Prediabetes R73.09 ; Dyslipi demia E78.5 and Essential hypertension I10 [facility] [address] [id number] [address] [place] [address] Sep, [facility] [address] [facility] [id number] [address] [place] [address] Sep, Prediabetes R73.09 ; Essenti al hypertension I10 ; Dyslipidemia E78.5 and Urge incontinence N39.41 [facility] [address] [id number] [address] [place] [phone] Jan, Other chronic pain G89.29 [facility] [address] [id number] [address] [place] [phone] Jan, [facility] [address] [facility] [id number] [address] [place] [address] Jan, Capillary hemangioma D18.00 [facility] [address] [id number] [address] [place] [id number] Jan, Dental examination Z01.20 [facility] [address] [id number] [address] [place] [address] Dec, [facility] [address] [id number] [address] [place] [address] Dec, Low back pain M54.5 ; Other chronic pain G89.29 and Mixed stress 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 [facility] [address] [place] [id number] [address] [place] [address] 02 Dec, 2016 [place] [address] [address] Dec, Urge incontinence N39.[address] [address] 18 Nov, 2016 Colon cancer screening Z12.1 1 ; Medicare annual wellness visit, subsequent Z00.00 and Osteoporosis screening Z13.820 [place] [address] [address] 04 Nov, [address] [address] 04 Nov, 2016 Medicare annual wellness vis it, subsequent Z00.00 ; Osteoporosis screening Z13.820 ; Colon cancer screening Z12.11 and Encounter for immunization Z23 [facility] [address] [address] Oct, Decreased circulation in fin gers or toes R09.89 [facility] [address] [address] Oct, Decreased pulse R09.89 [facility] [address] [address] 13 Oct, 2016 Abrasion, left lesser toe(s) , initial encounter S90.415A and Local infection of the skin and subcutaneous tissue, unspecified L08.9 [place] [id number] [address] [place] [address] Aug, Dyslipidemia E78.5 ; Vitamin D deficiency E55.9 and Essential hypertension I10 [address] [address] Aug, Vitamin D deficiency E55.9 ; Dyslipidemia E78.5 ; Essential hypertension I10 ; Allergic contact dermatitis due to metals L23.0 ; Primary insomnia F51.01 ; Urge incontinence N39.41 and Restless leg syndrome G25.81 [facility] [address] [place] [id number] [address] [place] [address] 13 Jul, 2016 [facility] [address] [address] 06 Jul, 2016 [facility] [address] [address] May, Acute maxillary sinusitis, r ecurrence not specified J01.00 and Impacted cerumen of right ear H61.21 [place] [address] [address] 16 Apr, 2016 [facility] [address] [id number] 15 Jan, 2016 Encounter for dental examina tion Z01.20 [place] [address] [address] Dec, Vitamin D deficiency E55.9 [place] [address] [address] 18 Dec, 2015 Other and unspecified hyperl ipidemia 272.4 ; Vitamin D deficiency E55.9 and Prediabetes 790.29 [place] [address] [place] [id number] [address] [place] [address] 18 Dec, 2015 Vitamin D deficiency E55.9 [place] [address] [place] [id number] [address] [place] [address] Oct, Eustachian tube dysfunction, right H69.81 ; Seasonal affective disorder F39 and Encounter for immunization Z23 [facility] [address] [address] Sep, Acute pharyngitis, unspecifi ed J02.9 ; Otitis media H66.90 ; Sinusitis J32.9 and Seasonal allergies J30.2 [place] [address] [place] [id number] [address] [place] [address] Aug, [address] [address] Aug, Primary insomnia F51.01 ; Re stless leg syndrome G25.81 ; Urge incontinence N39.41 and Unspecified hearing loss, bilateral H91.[address] [address] 23 Apr, 2015 Breast cancer screening V76. 10 and Osteoporosis screening V82.[address] [address] 17 Apr, 2015 Breast cancer screening V76. 10 ; Routine gynecological examination V72.31 ; Colon cancer screening V76.51 and Osteoporosis screening V82.[address] [address] 16 Apr, 2015 Other and unspecified hyperl ipidemia 272.4 and Prediabetes 790.[address] [address] Apr, Unspecified vitamin D defici ency 268.9 and Unspecified essential hypertension 401.[address] [address] 12 Apr, 2015 Left foot pain 729.5 ; Unspe cified vitamin D deficiency 268.9 ; Overactive bladder 596.51 ; Insomnia, unspecified 780.52 ; Unspecified essential hypertension 401.9 ; Chronic diarrhea 787.91 ; TDAP DX V06.1 and PCV-13 (PREVNAR) DX V03.[address] [address] Jan, [address] [address] Jan, [address] [address] Nov, [address] [address] Nov, [facility] [address] [id number] [address] [place] [address], [place] [address] Sep, [facility] [address] [id number] [address] [place] [address], [place] [address] Sep, [facility] [address] [id number] [address] [place] [address], [place] [address] Aug, [facility] [address] [id number] [address] [place] [address], [place] [address] Aug, [facility] [address] [id number] [address] [place] [address], [place] [address] Jun, [facility] [address] [id number] [address] [place] [address], [place] [address] Jun, [facility] [address] [id number] [address] [place] [address], [place] [address] May, [facility] [address] [id number] [address] [place] [address], [place] [address] May, [facility] [address] [id number] [address] [place] [address], [place] [address] Apr, [facility] [address] [id number] [address] [place] [address], [place] [address] Apr, [facility] [address] [id number] [address] [place] [address], [place] [address] Apr, [facility] [address] [id number] [address] [place] [address], [place] [address] Apr, [facility] [address] [id number] [address] [place] [address], [place] [address] Apr, [facility] [address] [id number] [address] [place] [address], [place] [address] Apr, [facility] [address] [id number] [address] [place] [address], [place] [address] Apr, [facility] [address] [id number] [address] [place] [address] Apr, [facility] [address] [id number] [address] [place] [address], [place] [address] March, [facility] [address] [id number] [address] [place] [address], [place] [address] March, [facility] [address] [id number] [address] [place] [address], [place] [address] Dec, [facility] [address] [id number] [address] [place] [address], [place] [address] Dec, [facility] [address] [id number] [address] [place] [address], [place] [address] Nov, [facility] [address] [id number] [address] [place] [address], [place] [address] Nov, [facility] [address] [id number] [address] [place] [address], [place] [address] Nov, [facility] [address] [id number] [address] [place] [address], [place] [address] Nov, [facility] [address] [id number] [address] [place] [address], [place] [address] Oct, [facility] [address] [id number] [address] [place] [address], [place] [address] Oct, [facility] [address] [id number] [address] [place] [address], [place] [address] Sep, [facility] [address] [id number] [address] [place] [address], [place] [address] Sep, [facility] [address] [id number] [address] [place] [address], [place] [address] Sep, [facility] [address] [id number] [address] [place] [address], [place] [address] Sep, [facility] [address] [id number] [address] [place] [address], [place] [address] Sep, [facility] [address] [id number] [address] [place] [address], [place] [address] 15 Sep, 2013 [facility] [address] [id number] [address] [place] [address], [place] [address] Sep, [facility] [address] [id number] [address] [place] [address], [place] [address] Sep, [facility] [address] [id number] [address] [place] [address], [place] [address] Sep, [facility] [address] [id number] [address] [place] [address], [place] [address] Aug, [facility] [address] [id number] [address] [place] [address], [place] [address] Aug, [facility] [address] [id number] [address] [place] [address], [place] [address] Aug, [facility] [address] [id number] [address] [place] [address], [place] [address] Aug, [facility] [address] [id number] [address] [place] [address], [place] [address] Aug, [facility] [address] [id number] [address] [place] [address], [place] [address] Aug, [facility] [address] [id number] [address] [place] [address], [place] [address] Aug, [facility] [address] [id number] [address] [place] [address], [place] [address] Aug, [facility] [address] [id number] [address] [place] [address], [place] [address] Jul, [facility] [address] [id number] [address] [place] [address], [place] [address] Jun, [facility] [address] [id number] [address] [place] [address], [place] [address] Jun, [facility] [address] [id number] [address] [place] [address], [place] [address] Jun, [facility] [address] [id number] [address] [place] [address], [place] [address] Jun, [facility] [address] [id number] [address] [place] [address], [place] [address] March, [facility] [address] [id number] [address] [place] [address], [place] [address] March, [facility] [address] [id number] [address] [place] [address], [place] [address] March, [facility] [address] [id number] [address] [place] [address], [place] [address] March, [facility] [address] [id number] [address] [place] [address], [place] [address] March, [facility] [address] [id number] [address] [place] [address], [place] [address] Jan, [facility] [address] [id number] [address] [place] [address], [place] [address] Jan, [facility] [address] [id number] [address] [place] [address], [place] [address] Dec, [facility] [address] [id number] [address] [place] [address], [place] [address] Nov, [facility] [address] [id number] [address] [place] [address], [place] [address] Nov, [facility] [address] [id number] [address] [place] [address], [place] [address] Oct, [facility] [address] [id number] [address] [place] [address], [place] [address] Oct, [facility] [address] [id number] [address] [place] [address], [place] [address] Oct, [facility] [address] [id number] [address] [place] [address], [place] [address] Oct, [facility] [address] [id number] [address] [place] [address] Sep, [facility] [address] [id number] [address] [place] [address] Sep, [facility] [address] [id number] [address] [place] [address] Sep, [facility] [address] [id number] [address] [place] [address] Sep, [facility] [address] [id number] [address] [place] [address] Aug, [facility] [address] [id number] [address] [place] [address] Aug, [facility] [address] [id number] [address] [place] [address] Aug, [facility] [address] [id number] [address] [place] [address] Aug, [facility] [address] [id number] [address] [place] [address] Aug, [facility] [address] [id number] [address] [place] [address] Aug, IMMUNIZATIONS No Known Immunizations SOCIAL HISTORY Never Assessed REASON FOR VISIT PLAN OF CARE VITAL SIGNS MEDICATIONS No Known Medications RESULTS No Results PROCEDURES No Known [...]
--- OUTSIDE RECORDS SUMMARY | 2020-03-27 06:09 | XMS REPORT ---
Author Author Kenya Dennison Doctor Organization [facility] Address Unknown Phone Unavailable Care Team Providers Care Therapeutic Massage Technician Name Role Phone Migration, Doctor Unavailable Unavailable PROBLEMS Type Condition ICD9-CM Code WOD02-BZ Code Onset Dates Condition S tatus SNOMED Code Problem Primary insomnia F51.01 Active 193 909172 Problem Atherosclerotic occlusive disease I70.90 Active 300665538 Problem Urge incontinence N39.41 Active 16 8702492 Problem Prediabetes R73.09 Active 2478802 Problem Vitamin D deficiency E55.9 Active 35892176 Problem Restless leg syndrome G25.81 Active 04016552 Problem Major depressive disorder F32.9 Acti ve 224312547 Problem Generalized anxiety disorder F41.1 A ctive 63722042 Problem Essential hypertension I10 Active 55268701 Problem Major depressive disorder, recurrent, moderate F33 .1 Active 25244519 Problem Dyslipidemia E78.5 Active 7857395 07 Problem Irritable bowel syndrome with diarrhea K58.0 Active 63772372 Problem Mixed stress 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 Active 376736723 Problem Other chronic pain G89.29 Active 8 9646161 Problem Low back pain M54.5 Active 661485 009 ALLERGIES No Information ENCOUNTERS Encounter Location Date Diagnosis [place] [address] [address] Jan, [facility] [address] [address] Dec, [place] [address] [address] 05 Jan, 2020 Generalized anxiety disorder F41.1 ; Deana ekaterina insomnia F51.01 and Major depressive disorder, recurrent, moderate F33.1 [facility] [address] [address] Dec, Essential hypertension I10 [facility] [address] [address] 27 Dec, 2019 Major depressive disorder, recurrent, mo derate F33.1 and Generalized anxiety disorder F41.1 [place] [address] [address] 24 Dec, 2019 [place] [address] [address] 21 Dec, 2019 Prediabetes R73.09 ; Essential hypertens ion I10 and Dyslipidemia E78.5 [place] [address] [address] 19 Dec, 2019 Prediabetes R73.09 ; Essential hypertens ion I10 ; Dyslipidemia E78.5 ; Major depressive disorder F32.9 ; Primary insomnia F51.01 ; Epigastric pain R10.13 and Generalized anxiety disorder F41.1 [place] [address] [address] 14 Dec, 2019 Major depressive disorder F32.9 and Gene ralized anxiety disorder F41.1 [place] [address] [address] 07 Dec, 2019 [place] [address] [address] 04 Dec, 2019 Generalized anxiety disorder F41.1 and M ajor depressive disorder, recurrent, moderate F33.1 [place] [address] [address] Nov, Major depressive disorder, recurrent, mo derate F33.1 and Generalized anxiety disorder F41.1 [place] [address] [address] Nov, Major depressive disorder F32.9 ; Essent ial hypertension I10 ; Primary insomnia F51.01 ; Urge incontinence N39.41 ; Dyslipidemia E78.5 ; Other chronic pain G89.29 and Onychomycosis of toenail B35.1 [facility] [address] [id number] [place] [id number] Nov, Dental examination Z01.20 ; Oral health maintenance status requiring routine preventive dental care K08.9 and Caries K02.9 [place] [address] [address] Sep, Dyslipidemia E78.5 [place] [address] [address] Sep, Prediabetes R73.09 ; Dyslipidemia E78.5 and Essential hypertension I10 [place] [address] [address] Sep, [place] [address] [address] Sep, Prediabetes R73.09 ; Essential hypertens ion I10 ; Dyslipidemia E78.5 and Urge incontinence N39.41 [place] [address] [address] Jan, Other chronic pain G89.29 [place] [address] [address] Jan, [place] [address] [address] Jan, Capillary hemangioma D18.00 [facility] [address] [place] [id number] [place] [id number] Jan, Dental examination Z01.20 [place] [address] [address] Dec, [place] [address] [address] Dec, Low back pain M54.5 ; Other chronic pain G89.29 and Mixed stress 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 [place] [address] [address] Dec, [place] [address] [address] Dec, Urge incontinence N39.41 [place] [address] [place] [id number] 18 Nov, 2016 Colon cancer screening Z12.11 ; Medicare annual wellness visit, subsequent Z00.00 and Osteoporosis screening Z13.[address] [address] 04 Nov, [address] [address] Nov, Medicare annual wellness visit, subseque nt Z00.00 ; Osteoporosis screening Z13.820 ; Colon cancer screening Z12.11 and Encounter for immunization Z23 [facility] [address] [address] Oct, Decreased circulation in fin gers or toes R09.89 [facility] [address] [address] Oct, Decreased pulse R09.89 [facility] [address] [address] Oct, Abrasion, left lesser toe(s) , initial encounter S90.415A and Local infection of the skin and subcutaneous tissue, unspecified L08.[address] [address] Aug, Dyslipidemia E78.5 ; Vitamin D deficienc y E55.9 and Essential hypertension I10 [address] [address] Aug, Vitamin D deficiency E55.9 ; Dyslipidemi a E78.5 ; Essential hypertension I10 ; Allergic contact dermatitis due to metals L23.0 ; Primary insomnia F51.01 ; Urge incontinence N39.41 and Restless leg syndrome G25.[address] [address] Jul, [address] [address] Jul, [facility] [address] [place] [address] May, Acute maxillary sinusitis, r ecurrence not specified J01.00 and Impacted cerumen of right ear H61.21 [facility] [address] [place] [id number] [place] [address] Apr, [facility] [address] [id number] [place] [id number] 15 Jan, 2016 Encounter for dental examination Z01.20 [facility] [address] [address] Dec, Vitamin D deficiency E55.[address] [address] 18 Dec, 2015 Other and unspecified hyperlipidemia 272 .4 ; Vitamin D deficiency E55.9 and Prediabetes 790.29 [place] [address] [address] 18 Dec, 2015 Vitamin D deficiency E55.9 [facility] [address] [place] [id number] [place] [address] Oct, Eustachian tube dysfunction, right H69.8 1 ; Seasonal affective disorder F39 and Encounter for immunization Z23 [facility] [address] [place] [id number] [place] [address] Sep, Acute pharyngitis, unspecifi ed J02.9 ; Otitis media H66.90 ; Sinusitis J32.9 and Seasonal allergies J30.2 [facility] [address] [place] [id number] [place] [address] Aug, [facility] [address] [place] [address] Aug, Primary insomnia F51.01 ; Restless leg s yndrome G25.81 ; Urge incontinence N39.41 and Unspecified hearing loss, bilateral H91.93 [facility] [address] [address] Apr, Breast cancer screening V76.10 and Osteo porosis screening V82.81 [place] [address] [address] 17 Apr, 2015 Breast cancer screening V76.10 ; Routine gynecological examination V72.31 ; Colon cancer screening V76.51 and Osteoporosis screening V82.81 [place] [address] [address] 16 Apr, 2015 Other and unspecified hyperlipidemia 272 .4 and Prediabetes 790.29 [place] [address] [address] 15 Apr, 2015 Unspecified vitamin D deficiency 268.9 a nd Unspecified essential hypertension 401.9 [place] [address] [address] 12 Apr, 2015 Left foot pain 729.5 ; Unspecified vitam in D deficiency 268.9 ; Overactive bladder 596.51 ; Insomnia, unspecified 780.52 ; Unspecified essential hypertension 401.9 ; Chronic diarrhea 787.91 ; TDAP DX V06.1 and PCV-13 (PREVNAR) DX V03.82 [place] [address] [address] Jan, [place] [address] [address] Jan, [place] [address] [address] Nov, [place] [address] [address] Nov, [place] [address] [address] Sep, [place] [address] [address] Sep, [place] [address] [address] Aug, [place] [address] [address] Aug, [facility] [address] [facility] [id number] [place] [address] Jun, [facility] [address] [id number] [place] [address] Jun, [facility] [address] [facility] [id number] [place] [address] May, [facility] [address] [id number] [place] [address] May, [facility] [address] [facility] [id number] [place] [address] Apr, [facility] [address] [id number] [place] [address] Apr, [facility] [address] [id number] [place] [address] Apr, [facility] [address] [id number] [place] [address] Apr, [facility] [address] [id number] [place] [address] Apr, [facility] [address] [id number] [place] [address] Apr, [facility] [address] [id number] [place] [address] Apr, [facility] [address] [id number] [place] [address] Apr, [facility] [address] [id number] [place] [address] March, [facility] [address] [id number] [place] [address] March, [facility] [address] [id number] [place] [address] Dec, [facility] [address] [id number] [place] [address] Dec, [facility] [address] [id number] [place] [address] Nov, [facility] [address] [id number] [place] [address] Nov, [facility] [address] [id number] [place] [address] Nov, [facility] [address] [id number] [place] [address] Nov, [facility] [address] [id number] [place] [address] Oct, [facility] [address] [id number] [place] [address] Oct, [facility] [address] [id number] [place] [address] Sep, [facility] [address] [id number] [place] [address] Sep, [facility] [address] [id number] [place] [address] Sep, [facility] [address] [id number] [place] [address] Sep, [facility] [address] [place] [id number] [place] [address] Sep, [facility] [address] [id number] [place] [address] Sep, [facility] [address] [place] [id number] [place] [address] Sep, [facility] [address] [id number] [place] [address] Sep, [facility] [address] [id number] [place] [address] Sep, [facility] [address] [id number] [place] [address] Aug, [facility] [address] [id number] [place] [address] Aug, [facility] [address] [id number] [place] [address] Aug, [facility] [address] [facility] [id number] [place] [address] Aug, [facility] [address] [id number] [place] [address] Aug, [facility] [address] [id number] [place] [address] Aug, [facility] [address] [id number] [place] [address] Aug, [facility] [address] [id number] [place] [address] Aug, [facility] [address] [id number] [place] [address] Jul, [facility] [address] [id number] [place] [address] Jun, [facility] [address] [id number] [place] [address] Jun, [facility] [address] [id number] [place] [address] Jun, [facility] [address] [id number] [place] [address] Jun, [facility] [address] [id number] [place] [address] March, [facility] [address] [id number] [place] [address] March, [facility] [address] [id number] [place] [address] March, [facility] [address] [id number] [place] [address] March, [facility] [address] [id number] [place] [address] March, [facility] [address] [id number] [place] [address] Jan, [facility] [address] [id number] [place] [address] Jan, [facility] [address] [id number] [place] [address] Dec, [facility] [address] [id number] [place] [address] Nov, [facility] [address] [place] [id number] [place] [address] Nov, [facility] [address] [id number] [place] [address] Oct, [facility] [address] [place] [id number] [place] [address] Oct, [facility] [address] [id number] [place] [address] Oct, [facility] [address] [place] [id number] [place] [address] Oct, [facility] [address] [id number] [place] [address] Sep, [facility] [address] [place] [id number] [place] [address] Sep, [facility] [address] [id number] [place] [address] Sep, [facility] [address] [place] [id number] [place] [address] Sep, [facility] [address] [id number] [place] [address] Aug, [facility] [address] [id number] [place] [address] Aug, [facility] [address] [id number] [place] [address] Aug, [facility] [address] [id number] [place] [address] Aug, [facility] [address] [id number] [place] [address] Aug, [facility] [address] [facility] [id number] [place] [address] Aug, IMMUNIZATIONS No Known Immunizations SOCIAL HISTORY [...]
--- OUTSIDE RECORDS SUMMARY | 2020-03-27 06:09 | XMS REPORT ---
Author Author Kenya Dennison Doctor Organization [facility] Address Unknown Phone Unavailable Care Team Providers Care Helmet Hat Sweatband Puncher Name Role Phone Migration, Doctor Unavailable Unavailable PROBLEMS Type Condition ICD9-CM Code RVS04-RX Code Onset Dates Condition S tatus SNOMED Code Problem Primary insomnia F51.01 Active 193 120687 Problem Atherosclerotic occlusive disease I70.90 Active 447963663 Problem Urge incontinence N39.41 Active 16 7592956 Problem Prediabetes R73.09 Active 2642632 Problem Vitamin D deficiency E55.9 Active 21505237 Problem Restless leg syndrome G25.81 Active 21111329 Problem Major depressive disorder F32.9 Acti ve 014952886 Problem Generalized anxiety disorder F41.1 A ctive 89172188 Problem Essential hypertension I10 Active 34818381 Problem Major depressive disorder, recurrent, moderate F33 .1 Active 84991979 Problem Dyslipidemia E78.5 Active 4186775 07 Problem Irritable bowel syndrome with diarrhea K58.0 Active 01815675 Problem Mixed stress 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 Active 271599556 Problem Other chronic pain G89.29 Active 8 9339624 Problem Low back pain M54.5 Active 744956 009 ALLERGIES No Information ENCOUNTERS Encounter Location Date Diagnosis [facility] [address] [id number] [address] [place] [phone] Jan, [facility] [address] [facility] [id number] [address] [place] [address] Dec, Generalized anxiety disorder F41.1 ; Primary insomnia F51.01 and Major depressive disorder, recurrent, moderate F33.1 [facility] [address] [facility] [id number] [address] [place] [address] Dec, Essential hypertension I10 [facility] [address] [facility] [id number] [address] [place] [address] Dec, Major depressive disorder, r ecurrent, moderate F33.1 and Generalized anxiety disorder F41.1 [place] [id number] [facility] [id number] [address] [place] [phone] 24 Dec, 2019 [facility] [address] [facility] [id number] [address] [place] [id number] 21 Dec, 2019 Prediabetes R73.09 ; Essenti al hypertension I10 and Dyslipidemia E78.5 [place] [address] [facility] [id number] [address] [place] [phone] 19 Dec, 2019 Prediabetes R73.09 ; Essenti al hypertension I10 ; Dyslipidemia E78.5 ; Major depressive disorder F32.9 ; Primary insomnia F51.01 ; Epigastric pain R10.13 and Generalized anxiety disorder F41.1 [place] [address] [facility] [id number] [address] [place] [phone] 14 Dec, 2019 Major depressive disorder F3 2.9 and Generalized anxiety disorder F41.1 [place] [id number] [place] [id number] 07 Dec, 2019 [place] [address] [facility] [id number] [address] [place] [id number] 04 Dec, 2019 Generalized anxiety disorder F41.1 and Major depressive disorder, recurrent, moderate F33.1 [place] [address] [place] [id number] [address] [place] [address] Nov, Major depressive disorder, r ecurrent, moderate F33.1 and Generalized anxiety disorder F41.1 [place] [address] [facility] [id number] [address] [place] [address] Nov, Major depressive disorder F3 2.9 ; Essential hypertension I10 ; Primary insomnia F51.01 ; Urge incontinence N39.41 ; Dyslipidemia E78.5 ; Other chronic pain G89.29 and Onychomycosis of toenail B35.1 [facility] [address] [id number] [address] [place] [id number] Nov, Dental examination Z01.20 ; Oral health maintenance status requiring routine preventive dental care K08.9 and Caries K02.9 [facility] [address] [facility] [id number] [address] [place] [address] Sep, Dyslipidemia E78.5 [facility] [address] [facility] [id number] [address] [place] [phone] 17 Sep, 2017 Prediabetes R73.09 ; Dyslipi demia E78.5 and Essential hypertension I10 [facility] [address] [facility] [id number] [address] [place] [address] Sep, [facility] [address] [facility] [id number] [address] [place] [address] Sep, Prediabetes R73.09 ; Essenti al hypertension I10 ; Dyslipidemia E78.5 and Urge incontinence N39.41 [place] [address] [facility] [id number] [address] [place] [address] Jan, Other chronic pain G89.29 [facility] [address] [facility] [id number] [address] [place] [address] Jan, [facility] [address] [facility] [id number] [address] [place] [address] Jan, Capillary hemangioma D18.00 [facility] [address] [facility] [id number] [address] [place] [address] [id number] Jan, Dental examination Z01.20 [facility] [address] [facility] [id number] [address] [place] [address] Dec, [facility] [address] [facility] [id number] [address] [place] [address] Dec, Low back pain M54.5 ; Other chronic pain G89.29 and Mixed stress 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 [facility] [address] [facility] [id number] [address] [place] [address] Dec, [facility] [address] [facility] [id number] [address] [place] [address] Dec, Urge incontinence N39.41 [place] [address] [address] 18 Nov, 2016 Colon cancer screening Z12.1 1 ; Medicare annual wellness visit, subsequent Z00.00 and Osteoporosis screening Z13.820 [place] [address] [address] 04 Nov, [address] [address] 04 Nov, 2016 Medicare annual wellness vis it, subsequent Z00.00 ; Osteoporosis screening Z13.820 ; Colon cancer screening Z12.11 and Encounter for immunization Z23 [facility] [address] [place] [address] Oct, Decreased circulation in fin gers or toes R09.89 [facility] [address] [address] Oct, Decreased pulse R09.89 [facility] [address] [address] 13 Oct, 2016 Abrasion, left lesser toe(s) , initial encounter S90.415A and Local infection of the skin and subcutaneous tissue, unspecified L08.9 [place] [id number] [place] [address] 06 Aug, 2016 Dyslipidemia E78.5 ; Vitamin D deficiency E55.9 and Essential hypertension I10 [place] [id number] [place] [address] Aug, Vitamin D deficiency E55.9 ; Dyslipidemia E78.5 ; Essential hypertension I10 ; Allergic contact dermatitis due to metals L23.0 ; Primary insomnia F51.01 ; Urge incontinence N39.41 and Restless leg syndrome G25.81 [place] [id number] [address] [place] [address] 13 Jul, [address] [address] Jul, [facility] [address] [address] [id number] [address] [place] [address] May, Acute maxillary sinusitis, r ecurrence not specified J01.00 and Impacted cerumen of right ear H61.21 [facility] [address] [place] [id number] [address] [place] [phone] Apr, [facility] [address] [place] [id number] [address] [place] [id number] Dec, Encounter for dental examina tion Z01.20 [place] [address] [address] Dec, Vitamin D deficiency E55.9 [facility] [address] [address] 18 Dec, 2015 Other and unspecified hyperl ipidemia 272.4 ; Vitamin D deficiency E55.9 and Prediabetes 790.29 [facility] [address] [place] [address] [id number] [address] [place] [address] Dec, Vitamin D deficiency E55.9 [facility] [address] [place] [id number] [address] [place] [address] Oct, Eustachian tube dysfunction, right H69.81 ; Seasonal affective disorder F39 and Encounter for immunization Z23 [facility] [address] [id number] [address] [place] [address] Sep, Acute pharyngitis, unspecifi ed J02.9 ; Otitis media H66.90 ; Sinusitis J32.9 and Seasonal allergies J30.2 [facility] [address] [address] [id number] [address] [place] [address] Aug, [facility] [address] [address] [id number] [address] [place] [address] Aug, Primary insomnia F51.01 ; Re stless leg syndrome G25.81 ; Urge incontinence N39.41 and Unspecified hearing loss, bilateral H91.93 [place] [address] [place] [id number] [address] [place] [address] 23 Apr, 2015 Breast cancer screening V76. 10 and Osteoporosis screening V82.81 [place] [address] [place] [id number] [address] [place] [address] 17 Apr, 2015 Breast cancer screening V76. 10 ; Routine gynecological examination V72.31 ; Colon cancer screening V76.51 and Osteoporosis screening V82.81 [place] [address] [address] 16 Apr, 2015 Other and unspecified hyperl ipidemia 272.4 and Prediabetes 790.[address] [address] 15 Apr, 2015 Unspecified vitamin D defici ency 268.9 and Unspecified essential hypertension 401.[address] [address] 12 Apr, 2015 Left foot pain 729.5 ; Unspe cified vitamin D deficiency 268.9 ; Overactive bladder 596.51 ; Insomnia, unspecified 780.52 ; Unspecified essential hypertension 401.9 ; Chronic diarrhea 787.91 ; TDAP DX V06.1 and PCV-13 (PREVNAR) DX V03.82 [place] [address] [place] [id number] [address] [place] [id number] 14 Jan, 2015 [place] [address] [place] [id number] [address] [place] [phone] Jan, [place] [address] [place] [id number] [address] [place] [address] Nov, [place] [address] [address] Nov, [place] [address] [place] [id number] [address] [place] [address] Sep, [place] [address] [address] Sep, [facility] [address] [id number] [address] [place] [address], [place] [address] Aug, [facility] [address] [id number] [address] [place] [address], [place] [address] Aug, [facility] [address] [id number] [address] [place] [address], [place] [address] Jun, [facility] [address] [id number] [address] [place] [address], [place] [address] Jun, [facility] [address] [id number] [address] [place] [address], [place] [address] May, [facility] [address] [id number] [address] [place] [address], [place] [address] May, [facility] [address] [id number] [address] [place] [address], [place] [address] Apr, [facility] [address] [id number] [address] [place] [address], [place] [address] Apr, [facility] [address] [id number] [address] [place] [address], [place] [address] Apr, [facility] [address] [id number] [address] [place] [address], [place] [address] Apr, [facility] [address] [id number] [address] [place] [address], [place] [address] Apr, [facility] [address] [id number] [address] [place] [address], [place] [address] Apr, [facility] [address] [id number] [address] [place] [address], [place] [address] Apr, [facility] [address] [id number] [address] [place] [address], [place] [address] Apr, [facility] [address] [id number] [address] [place] [address], [place] [address] March, [facility] [address] [id number] [address] [place] [address], [place] [address] March, [facility] [address] [id number] [address] [place] [address], [place] [address] Dec, [facility] [address] [id number] [address] [place] [address], [place] [address] 14 Dec, 2013 [facility] [address] [id number] [address] [place] [address], [place] [address] Nov, [facility] [address] [id number] [address] [place] [address], [place] [address] Nov, [facility] [address] [id number] [address] [place] [address], [place] [address] Nov, [facility] [address] [id number] [address] [place] [address], [place] [address] Nov, [facility] [address] [id number] [address] [place] [address], [place] [address] Oct, [facility] [address] [id number] [address] [place] [address], [place] [address] Oct, [facility] [address] [id number] [address] [place] [address], [place] [address] Sep, [facility] [address] [id number] [address] [place] [address], [place] [address] 29 Sep, 2013 [facility] [address] [id number] [address] [place] [address], [place] [address] Sep, [facility] [address] [id number] [address] [place] [address], [place] [address] Sep, [facility] [address] [id number] [address] [place] [address], [place] [address] 15 Sep, 2013 [facility] [address] [id number] [address] [place] [address], [place] [address] 15 Sep, 2013 [facility] [address] [id number] [address] [place] [address], [place] [address] Sep, [facility] [address] [id number] [address] [place] [address], [place] [address] Sep, [facility] [address] [id number] [address] [place] [address], [place] [address] Sep, [facility] [address] [id number] [address] [place] [address], [place] [address] Aug, [facility] [address] [id number] [address] [place] [address], [place] [address] Aug, [facility] [address] [id number] [address] [place] [address], [place] [address] Aug, [facility] [address] [id number] [address] [place] [address], [place] [address] Aug, [facility] [address] [id number] [address] [place] [address], [place] [address] Aug, [facility] [address] [id number] [address] [place] [address], [place] [address] Aug, [facility] [address] [id number] [address] [place] [address], [place] [address] Aug, [facility] [address] [id number] [address] [place] [address] Aug, [facility] [address] [id number] [address] [place] [address] Jul, [facility] [address] [id number] [address] [place] [address] Jun, [facility] [address] [id number] [address] [place] [address], [place] [address] Jun, [facility] [address] [id number] [address] [place] [address], [place] [address] Jun, [facility] [address] [id number] [address] [place] [address] Jun, [facility] [address] [id number] [address] [place] [address] March, [facility] [address] [id number] [address] [place] [address], [place] [address] March, [facility] [address] [id number] [address] [place] [address], [place] [address] March, [facility] [address] [id number] [address] [place] [address], [place] [address] March, [facility] [address] [id number] [address] [place] [address], [place] [address] March, [facility] [address] [id number] [address] [place] [address], [place] [address] Jan, [facility] [address] [id number] [address] [place] [address], [place] [address] Jan, [facility] [address] [id number] [address] [place] [address], [place] [address] Dec, [facility] [address] [id number] [address] [place] [address], [place] [address] Nov, [facility] [address] [id number] [address] [place] [address], [place] [address] Nov, [facility] [address] [id number] [address] [place] [address], [place] [address] Oct, [facility] [address] [id number] [address] [place] [address], [place] [address] Oct, [facility] [address] [id number] [address] [place] [address], [place] [address] Oct, [facility] [address] [id number] [address] [place] [address], [place] [address] Oct, [facility] [address] [id number] [address] [place] [address], [place] [address] Sep, [facility] [address] [id number] [address] [place] [address], [place] [address] Sep, [facility] [address] [id number] [address] [place] [address] Sep, [facility] [address] [id number] [address] [place] [address] Sep, [facility] [address] [id number] [address] [place] [address] Aug, [facility] [address] [id number] [address] [place] [address] Aug, [facility] [address] [id number] [address] [place] [address] Aug, [facility] [address] [id number] [address] [place] [address] Aug, [facility] [address] [id number] [address] [place] [address] Aug, [facility] [address] [id number] [address] [place] [address] Aug, IMMUNIZATIONS No Known Immunizations SOCIAL HISTORY [...]
--- OUTSIDE RECORDS SUMMARY | 2020-03-27 06:09 | XMS REPORT ---
Author Author Kenya Dennison Doctor Organization [facility] Address Unknown Phone Unavailable Care Team Providers Care Sandstone Splitter Name Role Phone Migration, Doctor Unavailable Unavailable PROBLEMS Type Condition ICD9-CM Code WRA29-ZC Code Onset Dates Condition S tatus SNOMED Code Problem Primary insomnia F51.01 Active 193 673475 Problem Atherosclerotic occlusive disease I70.90 Active 877175591 Problem Urge incontinence N39.41 Active 16 2054413 Problem Prediabetes R73.09 Active 8267432 Problem Vitamin D deficiency E55.9 Active 86742917 Problem Restless leg syndrome G25.81 Active 26596920 Problem Major depressive disorder F32.9 Acti ve 844331601 Problem Generalized anxiety disorder F41.1 A ctive 22015842 Problem Essential hypertension I10 Active 34376693 Problem Major depressive disorder, recurrent, moderate F33 .1 Active 25642951 Problem Dyslipidemia E78.5 Active 1686705 07 Problem Irritable bowel syndrome with diarrhea K58.0 Active 69590892 Problem Mixed stress 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 Active 200778827 Problem Other chronic pain G89.29 Active 8 3334803 Problem Low back pain M54.5 Active 446696 009 ALLERGIES No Information ENCOUNTERS Encounter Location Date Diagnosis [place] [address] [address] Jan, [facility] [address] [address] Dec, Generalized anxiety disorder F41.1 ; Deana ekaterina insomnia F51.01 and Major depressive disorder, recurrent, moderate F33.1 [place] [address] [address] Dec, Essential hypertension I10 [place] [address] [address] Dec, Major depressive disorder, recurrent, mo derate F33.1 and Generalized anxiety disorder F41.1 [place] [address] [address] 24 Dec, 2019 [place] [address] [place] [address] 21 Dec, 2019 Prediabetes R73.09 ; Essential hypertens ion I10 and Dyslipidemia E78.5 [place] [address] [address] 19 Dec, 2019 Prediabetes R73.09 ; Essential hypertens ion I10 ; Dyslipidemia E78.5 ; Major depressive disorder F32.9 ; Primary insomnia F51.01 ; Epigastric pain R10.13 and Generalized anxiety disorder F41.1 [place] [address] [address] 14 Dec, 2019 Major depressive disorder F32.9 and Gene ralized anxiety disorder F41.1 [place] [address] [address] 07 Dec, 2019 [place] [address] [address] 04 Dec, 2019 Generalized anxiety disorder F41.1 and M ajor depressive disorder, recurrent, moderate F33.1 [place] [address] [address] Nov, Major depressive disorder, recurrent, mo derate F33.1 and Generalized anxiety disorder F41.1 [place] [address] [address] Nov, Major depressive disorder F32.9 ; Essent ial hypertension I10 ; Primary insomnia F51.01 ; Urge incontinence N39.41 ; Dyslipidemia E78.5 ; Other chronic pain G89.29 and Onychomycosis of toenail B35.1 [facility] [address] [place] [id number] [place] [id number] Nov, Dental examination Z01.20 ; Oral health maintenance status requiring routine preventive dental care K08.9 and Caries K02.9 [place] [address] [address] Sep, Dyslipidemia E78.5 [place] [address] [address] Sep, Prediabetes R73.09 ; Dyslipidemia E78.5 and Essential hypertension I10 [place] [address] [address] Sep, [place] [address] [address] Sep, Prediabetes R73.09 ; Essential hypertens ion I10 ; Dyslipidemia E78.5 and Urge incontinence N39.41 [place] [address] [address] Jan, Other chronic pain G89.29 [place] [address] [address] Jan, [place] [address] [address] Jan, Capillary hemangioma D18.00 [facility] [address] [place] [id number] [place] [id number] Jan, Dental examination Z01.20 [place] [address] [address] Dec, [place] [address] [address] Dec, Low back pain M54.5 ; Other chronic pain G89.29 and Mixed stress 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 [place] [address] [address] Dec, [place] [address] [address] Dec, Urge incontinence N39.41 [place] [address] [address] Nov, Colon cancer screening Z12.11 ; Medicare annual wellness visit, subsequent Z00.00 and Osteoporosis screening Z13.820 [place] [address] [address] Nov, [address] [address] Nov, Medicare annual wellness visit, subseque nt Z00.00 ; Osteoporosis screening Z13.820 ; Colon cancer screening Z12.11 and Encounter for immunization Z23 [facility] [address] [place] [address] Oct, Decreased circulation in fin gers or toes R09.89 [facility] [address] [address] Oct, Decreased pulse R09.89 [facility] [address] [address] Oct, Abrasion, left lesser toe(s) , initial encounter S90.415A and Local infection of the skin and subcutaneous tissue, unspecified L08.[address] [address] Aug, Dyslipidemia E78.5 ; Vitamin D deficienc y E55.9 and Essential hypertension I10 [address] [address] Aug, Vitamin D deficiency E55.9 ; Dyslipidemi a E78.5 ; Essential hypertension I10 ; Allergic contact dermatitis due to metals L23.0 ; Primary insomnia F51.01 ; Urge incontinence N39.41 and Restless leg syndrome G25.[address] [address] Jul, [address] [address] Jul, [facility] [address] [address] May, Acute maxillary sinusitis, r ecurrence not specified J01.00 and Impacted cerumen of right ear H61.21 [facility] [address] [id number] [place] [address] 16 Apr, 2016 [facility] [address] [facility] [id number] [place] [id number] Dec, Encounter for dental examination Z01.20 [facility] [address] [place] [id number] [place] [address] Dec, Vitamin D deficiency E55.9 [place] [address] [address] 18 Dec, 2015 Other and unspecified hyperlipidemia 272 .4 ; Vitamin D deficiency E55.9 and Prediabetes 790.29 [place] [address] [address] 18 Dec, 2015 Vitamin D deficiency E55.9 [place] [id number] [place] [address] Oct, Eustachian tube dysfunction, right H69.8 1 ; Seasonal affective disorder F39 and Encounter for immunization Z23 [facility] [address] [facility] [id number] [address] [place] [address] Sep, Acute pharyngitis, unspecifi ed J02.9 ; Otitis media H66.90 ; Sinusitis J32.9 and Seasonal allergies J30.2 [place] [id number] [place] [address] Aug, [address] [address] Aug, Primary insomnia F51.01 ; Restless leg s yndrome G25.81 ; Urge incontinence N39.41 and Unspecified hearing loss, bilateral H91.93 [facility] [address] [address] Apr, Breast cancer screening V76.10 and Osteo porosis screening V82.[address] [address] 17 Apr, 2015 Breast cancer screening V76.10 ; Routine gynecological examination V72.31 ; Colon cancer screening V76.51 and Osteoporosis screening V82.81 [place] [address] [address] 16 Apr, 2015 Other and unspecified hyperlipidemia 272 .4 and Prediabetes 790.29 [place] [address] [address] 15 Apr, 2015 Unspecified vitamin D deficiency 268.9 a nd Unspecified essential hypertension 401.9 [place] [address] [address] 12 Apr, 2015 Left foot pain 729.5 ; Unspecified vitam in D deficiency 268.9 ; Overactive bladder 596.51 ; Insomnia, unspecified 780.52 ; Unspecified essential hypertension 401.9 ; Chronic diarrhea 787.91 ; TDAP DX V06.1 and PCV-13 (PREVNAR) DX V03.82 [place] [address] [address] 14 Jan, 2015 [place] [address] [address] Jan, [place] [address] [address] Nov, [place] [address] [address] Nov, [place] [address] [address] Sep, [place] [address] [address] Sep, [place] [address] [address] Aug, [place] [address] [address] Aug, [place] [address] [address] Jun, [facility] [address] [facility] [id number] [place] [address] Jun, [facility] [address] [facility] [id number] [place] [address] May, [facility] [address] [facility] [id number] [place] [address] May, [facility] [address] [id number] [place] [address] Apr, [facility] [address] [facility] [id number] [place] [address] Apr, [facility] [address] [id number] [place] [address] Apr, [facility] [address] [id number] [place] [address] Apr, [facility] [address] [id number] [place] [address] Apr, [facility] [address] [id number] [place] [address] Apr, [facility] [address] [id number] [place] [address] Apr, [facility] [address] [id number] [place] [address] Apr, [facility] [address] [id number] [place] [address] March, [facility] [address] [id number] [place] [address] March, [facility] [address] [id number] [place] [address] Dec, [facility] [address] [id number] [place] [address] Dec, [facility] [address] [id number] [place] [address] Nov, [facility] [address] [id number] [place] [address] Nov, [facility] [address] [id number] [place] [address] Nov, [facility] [address] [id number] [place] [address] Nov, [facility] [address] [id number] [place] [address] Oct, [facility] [address] [id number] [place] [address] Oct, [facility] [address] [id number] [place] [address] Sep, [facility] [address] [id number] [place] [address] Sep, [facility] [address] [id number] [place] [address] Sep, [facility] [address] [id number] [place] [address] Sep, [facility] [address] [id number] [place] [address] Sep, [facility] [address] [place] [id number] [place] [address] Sep, [facility] [address] [id number] [place] [address] Sep, [facility] [address] [id number] [place] [address] Sep, [facility] [address] [id number] [place] [address] Sep, [facility] [address] [id number] [place] [address] Aug, [facility] [address] [id number] [place] [address] Aug, [facility] [address] [place] [id number] [place] [address] Aug, [facility] [address] [id number] [place] [address] Aug, [facility] [address] [facility] [id number] [place] [address] Aug, [facility] [address] [id number] [place] [address] Aug, [facility] [address] [id number] [place] [address] Aug, [facility] [address] [id number] [place] [address] Aug, [facility] [address] [id number] [place] [address] Jul, [facility] [address] [id number] [place] [address] Jun, [facility] [address] [id number] [place] [address] Jun, [facility] [address] [id number] [place] [address] Jun, [facility] [address] [id number] [place] [address] Jun, [facility] [address] [id number] [place] [address] March, [facility] [address] [id number] [place] [address] March, [facility] [address] [id number] [place] [address] March, [facility] [address] [id number] [place] [address] March, [facility] [address] [id number] [place] [address] March, [facility] [address] [id number] [place] [address] Jan, [facility] [address] [id number] [place] [address] Jan, [facility] [address] [id number] [place] [address] Dec, [facility] [address] [id number] [place] [address] Nov, [facility] [address] [id number] [place] [address] Nov, [facility] [address] [place] [id number] [place] [address] Oct, [facility] [address] [id number] [place] [address] Oct, [facility] [address] [place] [id number] [place] [address] Oct, [facility] [address] [id number] [place] [address] Oct, [facility] [address] [place] [id number] [place] [address] Sep, [facility] [address] [id number] [place] [address] Sep, [facility] [address] [place] [id number] [place] [address] Sep, [facility] [address] [place] [id number] [place] [address] Sep, [facility] [address] [place] [id number] [place] [address] Aug, [facility] [address] [id number] [place] [address] Aug, [facility] [address] [place] [id number] [place] [address] Aug, [facility] [address] [id number] [place] [address] Aug, [facility] [address] [id number] [place] [address] Aug, [facility] [address] [id number] [place] [address] Aug, IMMUNIZATIONS No Known Immunizations SOCIAL HISTORY Never Assessed REASON FOR VISIT PLAN OF CARE VITAL SIGNS Blood pressure systolic 122 mmHg 2013-11-10 Blood pressure diastolic 80 mmHg 2013-11-10 MEDICATIONS Unknown Medications RESULTS No Results PROCEDURES No Known procedures INSTRUCTIONS MEDICATIONS ADMINISTERED No Known Medications MEDICAL (GENERAL) HISTORY Type Description Date Medical History Post Cholecystectomy early 's Medical History Hyperlipidemia Medical History Hypertension Medical History Fibromyalgia Medical History bladder incontinence Surgical History hysterectomy Surgical History cholecystectomy Surgical History 3 ballons in left leg at [facility] Oct 2016 Surgical History bladder Procedure Hospitalization History Coronary angiography-30% blockage Hospitalization History cardiac stents 10/24/16
--- OUTSIDE RECORDS SUMMARY | 2020-03-27 06:09 | XMS REPORT ---
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[employer] Supervisor Name Role Phone Migration, Doctor Unavailable Unavailable PROBLEMS Type Condition ICD9-CM Code FKK32-HC Code Onset Dates Condition S tatus SNOMED Code Problem Primary insomnia F51.01 Active 193 867283 Problem Atherosclerotic occlusive disease I70.90 Active 824850954 Problem Urge incontinence N39.41 Active 16 4069767 Problem Prediabetes R73.09 Active 4497930 Problem Vitamin D deficiency E55.9 Active 06958204 Problem Restless leg syndrome G25.81 Active 71636803 Problem Major depressive disorder F32.9 Acti ve 349337774 Problem Generalized anxiety disorder F41.1 A ctive 29102329 Problem Essential hypertension I10 Active 30812077 Problem Major depressive disorder, recurrent, moderate F33 .1 Active 53272139 Problem Dyslipidemia E78.5 Active 2848773 07 Problem Irritable bowel syndrome with diarrhea K58.0 Active 47221950 Problem Mixed stress 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 Active 821373118 Problem Other chronic pain G89.29 Active 8 0931597 Problem Low back pain M54.5 Active 760510 009 ALLERGIES No Information ENCOUNTERS Encounter Location Date Diagnosis [facility] [address] [facility] [id number] [address] [place] [phone] Jan, [facility] [address] [facility] [id number] [address] [place] [address] Jan, [facility] [address] [facility] [id number] [address] [place] [address] Dec, Generalized anxiety disorder F41.1 ; Primary insomnia F51.01 and Major depressive disorder, recurrent, moderate F33.1 [facility] [address] [facility] [id number] [address] [place] [address] Dec, Essential hypertension I10 [facility] [address] [place] [id number] [address] [place], [place] [id number] 27 Dec, 2019 Major depressive disorder, r ecurrent, moderate F33.1 and Generalized anxiety disorder F41.1 [place] [address] [place] [id number] [address] [place], [place] [address] 24 Dec, 2019 [place] [address] [place] [address] 21 Dec, 2019 Prediabetes R73.09 ; Essenti al hypertension I10 and Dyslipidemia E78.5 [place] [address] [address] 19 Dec, 2019 Prediabetes R73.09 ; Essenti al hypertension I10 ; Dyslipidemia E78.5 ; Major depressive disorder F32.9 ; Primary insomnia F51.01 ; Epigastric pain R10.13 and Generalized anxiety disorder F41.1 [place] [address] [place] [address] 14 Dec, 2019 Major depressive disorder F3 2.9 and Generalized anxiety disorder F41.1 [place] [address] [address] 07 Dec, 2019 [place] [address] [place] [address] 04 Dec, 2019 Generalized anxiety disorder F41.1 and Major depressive disorder, recurrent, moderate F33.1 [place] [address] [place] [id number] Nov, Major depressive disorder, r ecurrent, moderate F33.1 and Generalized anxiety disorder F41.1 [place] [address] [place] [id number] [address] [place] [id number] Nov, Major depressive disorder F3 2.9 ; Essential hypertension I10 ; Primary insomnia F51.01 ; Urge incontinence N39.41 ; Dyslipidemia E78.5 ; Other chronic pain G89.29 and Onychomycosis of toenail B35.1 [facility] [address] [place] [id number] Nov, Dental examination Z01.20 ; Oral health maintenance status requiring routine preventive dental care K08.[address] [facility] [address] [facility] [id number] [address] [place] [address] Sep, Dyslipidemia E78.5 [facility] [address] [facility] [id number] [address] [place] [address] 17 Sep, 2017 Prediabetes R73.09 ; Dyslipi demia E78.5 and Essential hypertension I10 [facility] [address] [facility] [id number] [address] [place] [address] Sep, [place] [address] [facility] [id number] [address] [place] [address] Sep, Prediabetes R73.09 ; Essenti al hypertension I10 ; Dyslipidemia E78.5 and Urge incontinence N39.41 [place] [address] [facility] [id number] [address] [place] [address] Jan, Other chronic pain G89.29 [facility] [address] [facility] [id number] [address] [place] [address] Jan, [facility] [address] [facility] [id number] [address] [place] [address] Jan, Capillary hemangioma D18.00 [facility] [address] [id number] [address] [place] [id number] Jan, Dental examination Z01.20 [facility] [address] [facility] [id number] [address] [place] [phone] Dec, [facility] [address] [facility] [id number] [address] [place] [address] Dec, Low back pain M54.5 ; Other chronic pain G89.29 and Mixed stress 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 [facility] [address] [facility] [id number] [address] [place] [address] Dec, [place] [address] [address] Dec, Urge incontinence N39.[address] [address] 18 Nov, 2016 Colon cancer screening Z12.1 1 ; Medicare annual wellness visit, subsequent Z00.00 and Osteoporosis screening Z13.[address] [address] 04 Nov, [address] [address] 04 Nov, 2016 Medicare annual wellness vis it, subsequent Z00.00 ; Osteoporosis screening Z13.820 ; Colon cancer screening Z12.11 and Encounter for immunization Z23 [facility] [address] [address] Oct, Decreased circulation in fin gers or toes R09.89 [facility] [address] [address] Oct, Decreased pulse R09.89 [facility] [address] [address] 13 Oct, 2016 Abrasion, left lesser toe(s) , initial encounter S90.415A and Local infection of the skin and subcutaneous tissue, unspecified L08.[address] [address] Aug, Dyslipidemia E78.5 ; Vitamin D deficiency E55.9 and Essential hypertension I10 [address] [address] Aug, Vitamin D deficiency E55.9 ; Dyslipidemia E78.5 ; Essential hypertension I10 ; Allergic contact dermatitis due to metals L23.0 ; Primary insomnia F51.01 ; Urge incontinence N39.41 and Restless leg syndrome G25.[address] [address] Jul, [facility] [address] [place] [id number] [address] [place] [address] Jul, [facility] [address] [address] May, Acute maxillary sinusitis, r ecurrence not specified J01.00 and Impacted cerumen of right ear H61.21 [facility] [address] [address] Apr, [facility] [address] [place] [id number] Dec, Encounter for dental examina tion Z01.20 [place] [address] [address] 29 Dec, 2015 Vitamin D deficiency E55.[address] [address] 18 Dec, 2015 Other and unspecified hyperl ipidemia 272.4 ; Vitamin D deficiency E55.9 and Prediabetes 790.29 [place] [address] [address] 18 Dec, 2015 Vitamin D deficiency E55.9 [facility] [address] [place] [id number] [place] [address] Oct, Eustachian tube dysfunction, right H69.81 ; Seasonal affective disorder F39 and Encounter for immunization Z23 [facility] [address] [place] [id number] [address] [place] [address] Sep, Acute pharyngitis, unspecifi ed J02.9 ; Otitis media H66.90 ; Sinusitis J32.9 and Seasonal allergies J30.2 [facility] [address] [place] [id number] [place] [address] Aug, [facility] [address] [address] Aug, Primary insomnia F51.01 ; Re stless leg syndrome G25.81 ; Urge incontinence N39.41 and Unspecified hearing loss, bilateral H91.93 [place] [address] [address] 23 Apr, 2015 Breast cancer screening V76. 10 and Osteoporosis screening V82.[address] [address] 17 Apr, 2015 Breast cancer screening V76. 10 ; Routine gynecological examination V72.31 ; Colon cancer screening V76.51 and Osteoporosis screening V82.[address] [address] 16 Apr, 2015 Other and unspecified hyperl ipidemia 272.4 and Prediabetes 790.[address] [address] 15 Apr, 2015 Unspecified vitamin D defici ency 268.9 and Unspecified essential hypertension 401.[address] [address] 12 Apr, 2015 Left foot pain 729.5 ; Unspe cified vitamin D deficiency 268.9 ; Overactive bladder 596.51 ; Insomnia, unspecified 780.52 ; Unspecified essential hypertension 401.9 ; Chronic diarrhea 787.91 ; TDAP DX V06.1 and PCV-13 (PREVNAR) DX V03.82 [place] [address] [place] [id number] [address] [place] [phone] Jan, [place] [address] [place] [id number] [address] [place] [phone] Jan, [place] [address] [address] Nov, [place] [address] [address] Nov, [place] [address] [address] Sep, [facility] [address] [id number] [address] [place] [address], [place] [address] Sep, [facility] [address] [id number] [address] [place] [address], [place] [address] Aug, [facility] [address] [id number] [address] [place] [address], [place] [address] Aug, [facility] [address] [id number] [address] [place] [address], [place] [address] Jun, [facility] [address] [id number] [address] [place] [address], [place] [address] Jun, [facility] [address] [id number] [address] [place] [address], [place] [address] May, [facility] [address] [id number] [address] [place] [address], [place] [address] May, [facility] [address] [id number] [address] [place] [address], [place] [address] Apr, [facility] [address] [id number] [address] [place] [address], [place] [address] Apr, [facility] [address] [id number] [address] [place] [address], [place] [address] Apr, [facility] [address] [id number] [address] [place] [address], [place] [address] Apr, [facility] [address] [id number] [address] [place] [address], [place] [address] Apr, [facility] [address] [id number] [address] [place] [address], [place] [address] Apr, [facility] [address] [id number] [address] [place] [address], [place] [address] Apr, [facility] [address] [id number] [address] [place] [address], [place] [address] Apr, [facility] [address] [id number] [address] [place] [address], [place] [address] March, [facility] [address] [id number] [address] [place] [address], [place] [address] March, [facility] [address] [id number] [address] [place] [address], [place] [address] 14 Dec, 2013 [facility] [address] [id number] [address] [place] [address], [place] [address] Dec, [facility] [address] [id number] [address] [place] [address], [place] [address] Nov, [facility] [address] [id number] [address] [place] [address], [place] [address] Nov, [facility] [address] [id number] [address] [place] [address], [place] [address] Nov, [facility] [address] [id number] [address] [place] [address], [place] [address] Nov, [facility] [address] [id number] [address] [place] [address], [place] [address] Oct, [facility] [address] [id number] [address] [place] [address], [place] [address] Oct, [facility] [address] [id number] [address] [place] [address], [place] [address] Sep, [facility] [address] [id number] [address] [place] [address], [place] [address] Sep, [facility] [address] [id number] [address] [place] [address], [place] [address] Sep, [facility] [address] [id number] [address] [place] [address], [place] [address] Sep, [facility] [address] [id number] [address] [place] [address], [place] [address] 15 Sep, 2013 [facility] [address] [id number] [address] [place] [address], [place] [address] 15 Sep, 2013 [facility] [address] [id number] [address] [place] [address], [place] [address] Sep, [facility] [address] [id number] [address] [place] [address], [place] [address] Sep, [facility] [address] [id number] [address] [place] [address], [place] [address] Sep, [facility] [address] [id number] [address] [place] [address], [place] [address] Aug, [facility] [address] [id number] [address] [place] [address], [place] [address] Aug, [facility] [address] [id number] [address] [place] [address], [place] [address] Aug, [facility] [address] [id number] [address] [place] [address], [place] [address] Aug, [facility] [address] [id number] [address] [place] [address], [place] [address] Aug, [facility] [address] [id number] [address] [place] [address], [place] [address] Aug, [facility] [address] [id number] [address] [place] [address] Aug, [facility] [address] [id number] [address] [place] [address] Aug, [facility] [address] [id number] [address] [place] [address] Jul, [facility] [address] [id number] [address] [place] [address], [place] [address] Jun, [facility] [address] [id number] [address] [place] [address], [place] [address] Jun, [facility] [address] [id number] [address] [place] [address] Jun, [facility] [address] [id number] [address] [place] [phone] Jun, [facility] [address] [id number] [address] [place] [address], [place] [address] March, [facility] [address] [id number] [address] [place] [address], [place] [address] March, [facility] [address] [id number] [address] [place] [address], [place] [address] March, [facility] [address] [id number] [address] [place] [address], [place] [address] March, [facility] [address] [id number] [address] [place] [address], [place] [address] March, [facility] [address] [id number] [address] [place] [address], [place] [address] Jan, [facility] [address] [id number] [address] [place] [address], [place] [address] Jan, [facility] [address] [id number] [address] [place] [address], [place] [address] Dec, [facility] [address] [id number] [address] [place] [address], [place] [address] Nov, [facility] [address] [id number] [address] [place] [address], [place] [address] Nov, [facility] [address] [id number] [address] [place] [address], [place] [address] Oct, [facility] [address] [id number] [address] [place] [address], [place] [address] Oct, [facility] [address] [id number] [address] [place] [address], [place] [address] Oct, [facility] [address] [id number] [address] [place] [address], [place] [address] Oct, [facility] [address] [id number] [address] [place] [address], [place] [address] Sep, [facility] [address] [id number] [address] [place] [address] Sep, [facility] [address] [id number] [address] [place] [address] Sep, [facility] [address] [id number] [address] [place] [address] Sep, [facility] [address] [id number] [address] [place] [address] Aug, [facility] [address] [id number] [address] [place] [address] Aug, [facility] [address] [id number] [address] [place] [address] Aug, [facility] [address] [id number] [address] [place] [address] Aug, [facility] [address] [id number] [address] [place] [address] Aug, [facility] [address] [id number] [address] [place] [address] Aug, IMMUNIZATIONS No Known Immunizations SOCIAL HISTORY Never Assessed REASON FOR VISIT PLAN OF CARE VITAL SIGNS Height 62 in 2013-03-01 Weight 195.37 lbs 2013-03-01 Temperature 97.7 degrees Fahrenheit 2013-03-01 Heart Rate 85 bpm 2013-03-01 Respiratory Rate 18 2013-03-01 Blood pressure systolic 115 mmHg 2013-03-01 Blood pressure diastolic 70 mmHg 2013-03-01 MEDICATIONS Unknown Medications RESULTS No Results PROCEDURES [...]
--- OUTSIDE RECORDS SUMMARY | 2020-03-27 06:11 | XMS REPORT | Continuity of Care Document ---
Author Organization Unknown Address Unknown Phone Unavailable Allergies There is no data. Medications There is no data. Problems Date Dx Coded Attending Type Code Diagnosis Diagnosed By 08/13/2012 DEBI OMER DO 780.52 INSOMNIA UNSPECIFIED 08/13/2012 DEBI OMER DO V70.0 ROUTINE GENERAL MEDICAL EXAMINATION AT A HEALTH CARE FACILITY 08/13/2012 DEBI OMER DO 780.52 INSOMNIA UNSPECIFIED 08/13/2012 DEBI OMER DO V70.0 ROUTINE GENERAL MEDICAL EXAMINATION AT A HEALTH CARE FACILITY 08/13/2012 780.52 INS OMNIA UNSPECIFIED 08/13/2012 V70.0 ROUT INE GENERAL MEDICAL EXAMINATION AT A HEALTH CARE FACILITY 08/13/2012 780.52 INS OMNIA UNSPECIFIED 08/13/2012 V70.0 ROUT INE GENERAL MEDICAL EXAMINATION AT A HEALTH CARE FACILITY 08/13/2012 780.52 INS OMNIA UNSPECIFIED 08/13/2012 V70.0 ROUT INE GENERAL MEDICAL EXAMINATION AT A HEALTH CARE FACILITY 08/13/2012 780.52 INS OMNIA UNSPECIFIED 08/13/2012 V70.0 ROUT INE GENERAL MEDICAL EXAMINATION AT A HEALTH CARE FACILITY 08/13/2012 780.52 INS OMNIA UNSPECIFIED 08/13/2012 V70.0 ROUT INE GENERAL MEDICAL EXAMINATION AT A HEALTH CARE FACILITY 08/13/2012 780.52 INS OMNIA UNSPECIFIED 08/13/2012 V70.0 ROUT INE GENERAL MEDICAL EXAMINATION AT A HEALTH CARE FACILITY 08/13/2012 780.52 INS OMNIA UNSPECIFIED 08/13/2012 V70.0 ROUT INE GENERAL MEDICAL EXAMINATION AT A HEALTH CARE FACILITY 08/13/2012 DEBI OMER DO 780.52 INSOMNIA UNSPECIFIED 08/13/2012 DEBI OMER DO V70.0 ROUTINE GENERAL MEDICAL EXAMINATION AT A HEALTH CARE FACILITY 08/13/2012 DEBI OMER DO 780.52 INSOMNIA UNSPECIFIED 08/13/2012 DEBI OMER DO V70.0 ROUTINE GENERAL MEDICAL EXAMINATION AT A HEALTH CARE FACILITY 08/13/2012 OMER DO, DEBI K 780.52 INSOMNIA UNSPECIFIED 08/13/2012 KAN WALDROP DEBI K V70.0 ROUTINE GENERAL MEDICAL EXAMINATION AT A HEALTH CARE FACILITY 08/13/2012 KAN WALDROP DEBI K 780.52 INSOMNIA UNSPECIFIED 08/13/2012 KAN WALDROP DEBI K V70.0 ROUTINE GENERAL MEDICAL EXAMINATION AT A HEALTH CARE FACILITY 08/18/2012 OMER WOLF WALDROPA K 272.4 DYSLIPIDEMIA 08/18/2012 OMER WOLF WALDROPA K 272.4 DYSLIPIDEMIA 08/18/2012 272.4 DYSL IPIDEMIA 08/18/2012 272.4 DYSL IPIDEMIA 08/18/2012 272.4 DYSL IPIDEMIA 08/18/2012 272.4 DYSL IPIDEMIA 08/18/2012 272.4 DYSL IPIDEMIA 08/18/2012 272.4 DYSL IPIDEMIA 08/18/2012 272.4 DYSL IPIDEMIA 08/18/2012 OMER WOLF WALDROPA K 272.4 DYSLIPIDEMIA 08/18/2012 OMER DO DEBI K 272.4 DYSLIPIDEMIA 08/18/2012 OMER DO DEBI K 272.4 DYSLIPIDEMIA 08/18/2012 OMER WOLF WALDROPA K 272.4 DYSLIPIDEMIA 09/09/2012 OMER DO DEBI K 311 DEPRESSIVE DISORDER NOT ELSEWHERE CLASSIFIED 09/09/2012 OMER DO DEBI K 780.99 OTHER GENERAL SYMPTOMS 09/09/2012 OMER WOLF WALDROPA K 782.0 DISTURBANCE OF SKIN SENSATION 09/09/2012 OMER WOLF WALDROPA K 786.50 CHEST PAIN 09/09/2012 OMER WOLF WALDROPA K V58.69 LONG-TERM (CURRENT) USE OF OTHER MEDICATIONS 09/09/2012 WOLF OMER DOA K 311 DEPRESSIVE DISORDER NOT ELSEWHERE CLASSIFIED 09/09/2012 WOLF OMER DOA K 780.99 OTHER GENERAL SYMPTOMS 09/09/2012 OMER WOLF WALDROPA K 782.0 DISTURBANCE OF SKIN SENSATION 09/09/2012 OMER WOLF WALDROPA K 786.50 CHEST PAIN 09/09/2012 OMER DO DEBI K V58.69 LONG-TERM (CURRENT) USE OF OTHER MEDICATIONS 09/09/2012 311 DEPRES SIVE DISORDER NOT ELSEWHERE CLASSIFIED 09/09/2012 780.99 OTH ER GENERAL SYMPTOMS 09/09/2012 782.0 DIST URBANCE OF SKIN SENSATION 09/09/[address] PAIN 09/09/2012 V58.69 SHERRY G-TERM (CURRENT) USE OF OTHER MEDICATIONS 09/09/2012 311 DEPRES SIVE DISORDER NOT ELSEWHERE CLASSIFIED 09/09/2012 780.99 OTH ER GENERAL SYMPTOMS 09/09/2012 782.0 DIST URBANCE OF SKIN SENSATION 09/09/[address] Pain 09/09/2012 V58.69 SHERRY G-TERM (CURRENT) USE OF OTHER MEDICATIONS 09/09/2012 311 DEPRES SIVE DISORDER NOT ELSEWHERE CLASSIFIED 09/09/2012 780.99 OTH ER GENERAL SYMPTOMS 09/09/2012 782.0 DIST URBANCE OF SKIN SENSATION 09/09/[address] Pain 09/09/2012 V58.69 SHERRY G-TERM (CURRENT) USE OF OTHER MEDICATIONS 09/09/2012 311 DEPRES SIVE DISORDER NOT ELSEWHERE CLASSIFIED 09/09/2012 780.99 OTH ER GENERAL SYMPTOMS 09/09/2012 782.0 DIST URBANCE OF SKIN SENSATION 09/09/[address] Pain 09/09/2012 V58.69 SHERRY G-TERM (CURRENT) USE OF OTHER MEDICATIONS 09/09/2012 311 DEPRES SIVE DISORDER NOT ELSEWHERE CLASSIFIED 09/09/2012 780.99 OTH ER GENERAL SYMPTOMS 09/09/2012 782.0 DIST URBANCE OF SKIN SENSATION 09/09/[address] Pain 09/09/2012 V58.69 SHERRY G-TERM (CURRENT) USE OF OTHER MEDICATIONS 09/09/2012 311 DEPRES SIVE DISORDER NOT ELSEWHERE CLASSIFIED 09/09/2012 780.99 OTH ER GENERAL SYMPTOMS 09/09/2012 782.0 DIST URBANCE OF SKIN SENSATION 09/09/[address] Pain 09/09/2012 V58.69 SHERRY G-TERM (CURRENT) USE OF OTHER MEDICATIONS 09/09/2012 311 DEPRES SIVE DISORDER NOT ELSEWHERE CLASSIFIED 09/09/2012 780.99 OTH ER GENERAL SYMPTOMS 09/09/2012 782.0 DIST URBANCE OF SKIN SENSATION 09/09/[address] Pain 09/09/2012 V58.69 SHERRY G-TERM (CURRENT) USE OF OTHER MEDICATIONS 09/09/2012 DEBI OMER DO 311 DEPRESSIVE DISORDER NOT ELSEWHERE CLASSIFIED 09/09/2012 DEBI OMER DO 780.99 OTHER GENERAL SYMPTOMS 09/09/2012 DEBI OMER DO 782.0 DISTURBANCE OF SKIN SENSATION 09/09/2012 OMER DO, DEBI K 786.50 Chest Pain 09/09/2012 OMER DO, DEBI K V58.69 LONG-TERM (CURRENT) USE OF OTHER MEDICATIONS 09/09/2012 OMER DO DEBI K 311 DEPRESSIVE DISORDER NOT ELSEWHERE CLASSIFIED 09/09/2012 OMER DO, DEBI K 780.99 OTHER GENERAL SYMPTOMS 09/09/2012 OMER DO, DEBI K 782.0 DISTURBANCE OF SKIN SENSATION 09/09/2012 OMER DO DEBI K 786.50 Chest Pain 09/09/2012 OMER DO, DEBI K V58.69 LONG-TERM (CURRENT) USE OF OTHER MEDICATIONS 09/09/2012 OMER DO DEBI K 311 DEPRESSIVE DISORDER NOT ELSEWHERE CLASSIFIED 09/09/2012 OMER DO, DEBI K 780.99 OTHER GENERAL SYMPTOMS 09/09/2012 OMER DO, DEBI K 782.0 DISTURBANCE OF SKIN SENSATION 09/09/2012 OMER DO, DEBI K 786.50 Chest Pain 09/09/2012 MOER DO, DEBI K V58.69 LONG-TERM (CURRENT) USE OF OTHER MEDICATIONS 09/09/2012 OMER DO DEBI K 311 DEPRESSIVE DISORDER NOT ELSEWHERE CLASSIFIED 09/09/2012 OMER DO, DEBI K 780.99 OTHER GENERAL SYMPTOMS 09/09/2012 OMER DO, DEBI K 782.0 DISTURBANCE OF SKIN SENSATION 09/09/2012 OMER DO, DEBI K 786.50 Chest Pain 09/09/2012 OMER DO, DEBI K V58.69 LONG-TERM (CURRENT) USE OF OTHER MEDICATIONS 09/19/2012 OMER DO DEBI K 790.95 ELEVATED C-REACTIVE PROTEIN (CRP) 09/19/2012 OMER DO DEBI K 790.95 ELEVATED C-REACTIVE PROTEIN (CRP) 09/19/2012 790.95 SARAH VATED C- REACTIVE PROTEIN (CRP) 09/19/2012 790.95 Sarah vated C- reactive Protein (crp) 09/19/2012 790.95 Sarah vated C- reactive Protein (crp) 09/19/2012 790.95 Sarah vated C- reactive Protein (crp) 09/19/2012 790.95 Sarah vated C- reactive Protein (crp) 09/19/2012 790.95 Sarah vated C- reactive Protein (crp) 09/19/2012 790.95 Sarah vated C- reactive Protein (crp) 09/19/2012 OMER DO, DEBI K 790.95 Elevated C-reactive Protein (crp) 09/19/2012 OMER DO, DEBI K 790.95 Elevated C-reactive Protein (crp) 09/19/2012 OMER DO, DEBI K 790.95 Elevated C-reactive Protein (crp) 09/19/2012 OMER DO, DEBI K 790.95 Elevated C-reactive Protein (crp) 10/13/2012 OMER DO, DEBI K 401.9 HYPERTENSION, UNSPECIFIED ESSENTIAL 10/13/2012 401.9 HYPE RTENSION, UNSPECIFIED ESSENTIAL 10/13/2012 401.9 HYPE RTENSION, UNSPECIFIED ESSENTIAL 10/13/2012 401.9 HYPE RTENSION, UNSPECIFIED ESSENTIAL 10/13/2012 401.9 HYPE RTENSION, UNSPECIFIED ESSENTIAL 10/13/2012 401.9 HYPE RTENSION, UNSPECIFIED ESSENTIAL 10/13/2012 401.9 HYPE RTENSION, UNSPECIFIED ESSENTIAL 10/13/2012 401.9 HYPE RTENSION, UNSPECIFIED ESSENTIAL 10/13/2012 OMER DO, DEBI K 401.9 HYPERTENSION, UNSPECIFIED ESSENTIAL 10/13/2012 OMER DO, DEBI K 401.9 HYPERTENSION, UNSPECIFIED ESSENTIAL 10/13/2012 OMER DO, DEBI K 401.9 HYPERTENSION, UNSPECIFIED ESSENTIAL 10/13/2012 OMER DO, DEBI K 401.9 HYPERTENSION, UNSPECIFIED ESSENTIAL 11/10/2012 414.00 CAD 11/10/2012 414.00 CAD 11/10/2012 414.00 CAD 11/10/2012 414.00 CAD 11/10/2012 414.00 CAD 11/10/2012 414.00 CAD 11/10/2012 414.00 CAD 11/10/2012 OMER DO, DEBI K 414.00 CAD 11/10/2012 OMER DO, DEBI K 414.00 CAD 11/10/2012 OMER DO, DEBI K 414.00 CAD 11/10/2012 OMER DO, DEBI K 414.00 CAD 03/06/2013 268.9 DONTRELL MIN D DEFICIENCY 03/06/2013 268.9 DONTRELL MIN D DEFICIENCY 03/06/2013 268.9 DONTRELL MIN D DEFICIENCY 03/06/2013 OMER DO, DEBI K 268.9 VITAMIN D DEFICIENCY 03/06/2013 OMER DO, DEBI K 268.9 VITAMIN D DEFICIENCY 03/06/2013 OMER DO, DEBI K 268.9 VITAMIN D DEFICIENCY 03/06/2013 DEBI OMER DO K 268.9 VITAMIN D DEFICIENCY 08/19/2013 WOLF OMER DOA K V04.81 FLU SHOT 08/19/2013 DEBI OMER DO K V05.8 ZOSTAVAX DX 08/19/2013 WOLF OMER DOA K V04.81 FLU SHOT 08/19/2013 OMER WOLF WALDROPA K V05.8 ZOSTAVAX DX 08/19/2013 OMER WOLF WALDROPA K V04.81 FLU SHOT 08/19/2013 DEBI OMER DO K V05.8 ZOSTAVAX DX 08/23/2013 WOLF OMER DOA K V76.10 BREAST CANCER SCREENING 08/23/2013 WOLF OMER DOA K V76.10 BREAST CANCER SCREENING 08/23/2013 WOLF OMER DOA K V76.10 BREAST CANCER SCREENING 11/10/2013 WOLF OMER DOA K 733.92 CHONDROMALACIA 11/10/2013 KAN WALDROP DEBI K 733.92 CHONDROMALACIA 05/02/2014 KAN WALDROP DEBI K 564.1 IRRITABLE BOWEL SYNDROME 05/02/2014 KAN WALDROP DEBI K 729.1 MYALGIA AND MYOSITIS UNSPECIFIED Procedures Code [place] [address] A1C (IN-HOUSE) 08/31/2012 87599 ROUT INE VENIPUNCTURE 09/09/2012 05321 STRE SS ECHO 09/09/2012 50452 CRP HS (CARDIO) 09/10/2012 Cardiolog [place] Vargas 11/10/2012 43201 ROUT INE VENIPUNCTURE 03/02/2013 18990 CBC 03/02/2013 98676 LIPI D PANEL 03/02/2013 16598 CMP 03/02/2013 7259768 GF R CALC (RESULT ONLY) 03/02/2013 05329 VIT B 12 03/02/2013 85467 FOLATE 03/02/2013 70632 DONTRELL MIN D 25-HYDROXY (D2,D3, TOTAL) 03/02/2013 14028 FERRITIN 03/02/2013 72148 IRON SERUM 03/03/2013 29393 IRON BNDNG CAP 03/03/2013 IRGROUP IR ON GROUP (Iron,TIBC, Ferritin) 03/06/2013 Cardiolog Micah Castro 06/08/2013 00248 XRAY KNEE LEFT, 1 OR 2 VIEWS 06/28/2013 NEUROLOGY EDWARD SHANE 06/28/2013 ORTHOPEDI DECKERKASSY 06/28/2013 G0008 FLU ADMINISTRATION (MEDICARE ONLY) 08/19/2013 45059 MAMM OGRAM, SCREENING 08/23/2013 51020 US B REAST ULTRASOUND, RIGHT 09/28/2013 02450 US B REAST ULTRASOUND, RIGHT 11/10/2013 Results Test Result Range Comp. Metabolic Panel (14) - 08/07/16 10 :41 Glucose, Serum 90 mg/dL 65-99 BUN 17 mg/dL 8-27 Creatinine, Serum 0.81 mg/dL 0.57-1.00 eGFR If NonAfricn Am 75 mL/min/1.73 >59 eGFR If Africn Am 86 mL/min/1.73 >59 BUN/Creatinine Ratio 21 11-26 Sodium, Serum 141 mmol/L 134-144 Potassium, Serum 4.6 mmol/L 3.5-5.2 Chloride, Serum 102 mmol/L 97-108 Carbon Dioxide, Total 24 mmol/L 18-29 Calcium, Serum 9.3 mg/dL 8.7-10.3 Protein, Total, Serum 7.4 g/dL 6.0-8.5 Albumin, Serum 4.2 g/dL 3.6-4.8 Globulin, Total 3.2 g/dL 1.5-4.5 A/G Ratio 1.3 1.1-2.5 Bilirubin, Total 0.3 mg/dL 0.0-1.2 Alkaline Phosphatase, S 87 IU/L 39-117 AST (SGOT) 20 IU/L 0-40 ALT (SGPT) 15 IU/L 0-32 Lipid Panel - 08/07/16 10:41 Cholesterol, Total 164 mg/dL 100-199 Triglycerides 264 mg/dL 0-149 HDL Cholesterol 35 mg/dL >39 VLDL Cholesterol Damián 53 mg/dL 5-40 LDL Cholesterol Calc 76 mg/dL 0-99 Vitamin D, 25-Hydroxy - 08/07/16 10:41 Vitamin D, 25-Hydroxy 33.6 ng/mL 30.0-10 0.0 CBC - 09/18/17 11:23 WHITE BLOOD CELL COUNT 7.8 Thousand/uL 3 .8-10.8 RED BLOOD CELL COUNT 4.31 Million/uL 3.8 0-5.10 HEMOGLOBIN 13.3 g/dL 11.7-15.5 HEMATOCRIT 40.4 % 35.0-45.0 MCV 93.7 fL 80.0-100.0 MCH 30.9 pg 27.0-33.0 MCHC 32.9 g/dL 32.0-36.0 RDW 12.4 % 11.0-15.0 PLATELET COUNT 325 Thousand/uL 140-400 MPV 10.7 fL 7.5-12.5 ABSOLUTE NEUTROPHILS 5554 cells/uL 1500- 7800 ABSOLUTE LYMPHOCYTES 1661 cells/uL 850-3 900 ABSOLUTE MONOCYTES 476 cells/uL 200-950 ABSOLUTE EOSINOPHILS 78 cells/uL 15-500 ABSOLUTE BASOPHILS 31 cells/uL 0-200 NEUTROPHILS 71.2 % NRG LYMPHOCYTES 21.3 % NRG MONOCYTES 6.1 % NRG EOSINOPHILS 1.0 % NRG BASOPHILS 0.4 % NRG LIPID PANEL - 12/23/19 14:39 CHOLESTEROL, TOTAL 222 mg/dL <200 HDL CHOLESTEROL 42 mg/dL > OR = 50 TRIGLYCERIDES 214 mg/dL <150 LDL-CHOLESTEROL 144 mg/dL (calc) NRG CHOL/HDLC RATIO 5.3 (calc) <5.0 NON HDL CHOLESTEROL 180 mg/dL (calc) <13 0 CMP - 12/23/19 14:39 GLUCOSE 86 mg/dL 65-99 UREA NITROGEN (BUN) 13 mg/dL 7-25 CREATININE 0.79 mg/dL 0.60-0.93 eGFR NON-AFR. NICARAGUAN 75 mL/min/1.73m2 > OR = 60 eGFR 87 mL/min/1.73m2 > OR = 60 BUN/CREATININE RATIO NOT APPLICABLE (calc) 6-22 SODIUM 141 mmol/L 135-146 POTASSIUM 3.8 mmol/L 3.5-5.3 CHLORIDE 107 mmol/L 98-110 CARBON DIOXIDE 27 mmol/L 20-32 CALCIUM 9.1 mg/dL 8.6-10.4 PROTEIN, TOTAL 7.0 g/dL 6.1-8.1 ALBUMIN 4.0 g/dL 3.6-5.1 GLOBULIN 3.0 g/dL (calc) 1.9-3.7 ALBUMIN/GLOBULIN RATIO 1.3 (calc) 1.0-2. 5 BILIRUBIN, TOTAL 0.3 mg/dL 0.2-1.2 ALKALINE PHOSPHATASE 76 U/L 37-153 AST 12 U/L 10-35 ALT 10 U/L 6-29 CBC - 12/23/19 14:39 WHITE BLOOD CELL COUNT 6.9 Thousand/uL 3 .8-10.8 RED BLOOD CELL COUNT 4.36 Million/uL 3.8 0-5.10 HEMOGLOBIN 13.3 g/dL 11.7-15.5 HEMATOCRIT 40.2 % 35.0-45.0 MCV 92.2 fL 80.0-100.0 MCH 30.5 pg 27.0-33.0 MCHC 33.1 g/dL 32.0-36.0 RDW 12.9 % 11.0-15.0 PLATELET COUNT 339 Thousand/uL 140-400 MPV 11.0 fL 7.5-12.5 ABSOLUTE NEUTROPHILS 4361 cells/uL 1500- 7800 ABSOLUTE LYMPHOCYTES 2146 cells/uL 850-3 900 ABSOLUTE MONOCYTES 304 cells/uL 200-950 ABSOLUTE EOSINOPHILS 69 cells/uL 15-500 ABSOLUTE BASOPHILS 21 cells/uL 0-200 NEUTROPHILS 63.2 % NRG LYMPHOCYTES 31.1 % NRG MONOCYTES 4.4 % NRG EOSINOPHILS 1.0 % NRG BASOPHILS 0.3 % NRG TSH - 12/23/19 14:39 TSH 1.06 mIU/L 0.40-4.50 VITAMIN D, 25-H - 03/16/20 15:54 VITAMIN D,25-OH,TOTAL,IA 24 ng/mL 30-10 0 Encounters ACCT No. Visit Date/Time Discharge Status Pt. Type Provider Facility Loc./Unit Complaint [id number] 05/02/2014 15:39:00 05/02/2014 23:59: [facility] Outpatient DEBI OMER DO [id number] 11/10/2013 15:28:00 11/10/2013 23:59: [facility] Outpatient DEBI OMER DO [id number] 08/19/2013 08:49:00 08/19/2013 23:59: [facility] Outpatient DEBI OMER DO [id number] 06/27/2013 13:36:00 06/27/2013 23:59: [facility] Outpatient DEBI OMER DO [id number] 12/14/2012 10:09:00 12/14/2012 23:59: 59 [facility] [id number] 11/16/2012 10:00:00 11/16/2012 23:59: 59 [facility] [id number] 11/10/2012 10:20:00 11/10/2012 23:59: 59 [facility] [id number] 10/14/2012 08:05:00 10/14/2012 23:59: 59 [facility] Outpatient DEBI OMER DO Khari [id number] 08/31/2012 10:32:00 08/31/2012 23:59:5 9 [facility] Outpatient DEBI OMER DO Khari [id number] 06/27/2013 13:36:00 Document Registration [id number] 06/08/2013 10:47:00 Document Registration [id number] 03/02/2013 11:12:00 Document Registration [id number] 12/22/2012 11:02:00 Document Registration [id number] 08/08/2016 10:05:00 Document Registration [id number] 03/13/2020 16:00:00 03/13/2020 23:59:5 9 [facility] [id number] 03/16/2020 15:40:00 Document Registration [id number] 12/23/2019 14:40:00 Document Registration [id number] 09/18/2017 11:00:00 Document Registration
[2020-03-27] MEDS ORDERED: cefTRIAXone FOR IV USE 1,000 MG in WATER (STERILE) FOR INJECTION 10 ML IV ONE (06:15)
[2020-03-27] MEDS ORDERED: CATHETER FLUSH 10 ML SYR IV PRN (06:30)
[2020-03-27] MEDS ORDERED: SEVOFLURANE (ULTANE) 15 ML INHAL SOLN ONE (07:00)
[2020-03-27] MEDS ORDERED: fentaNYL INJECTION 100 MCG/2 ML AMP ONE (07:00)
[2020-03-27] MEDS ORDERED: proPOfol 200 MG/20 ML (DIPRIVAN) VIAL IV ONE (07:00)
[2020-03-27] MEDS ORDERED: LIDOCAINE PF 2% 5 ML (XYLOCAINE) VIAL ONE (07:00)
[2020-03-27] MEDS ORDERED: ONDANSETRON 4 MG/2 ML (SDV) Z0FRAN ONE (07:00)
--- NOTE | 2020-03-27 07:04 | Progress Note-Pre Operative ---
Pre-Operative Progress Note H&P Reviewed The H&P was reviewed, patient examined and no changes noted. Date Seen by Provider: March 27, 2020 Time Seen by Provider: 07:03 Date H&P Reviewed: March 27, 2020 Time H&P Reviewed: 07:03 Pre-Operative Diagnosis: severe urgency with incontinence and oab DAVID LYNN MD March 27, 2020 07:04
--- NOTE | 2020-03-27 07:08 | Progress Note-Post Operative ---
Post-Operative Progess Note Surgeon (s)/Executive Vice President Business Development (s) Surgeon DAVID LYNN MD Executive Vice President Business Development: NONE Pre-Operative Diagnosis SEVERE URGENCY WITH INCONTINENCE AND OAB Post-Operative Diagnosis SAME Procedure & Operative Findings Date of Procedure 03/27/20 Procedure Performed/Findings INTRAVESICAL INJECTION OF BOTOX Anesthesia Type GENERAL Estimated Blood Loss Estimated blood loss (mL): NEGLIGIBLE Specimens/Packing Specimens Removed NONE Packing: NONE DAVID LYNN MD March 27, 2020 07:08
[2020-03-27] MEDS ORDERED: 0.9% SODIUM CHLORIDE PF INJ 20 ML VIAL ONE (07:10)
--- NOTE | 2020-03-27 07:11 | Discharge Inst-Urology ---
Discharge Inst-Urology Reconcile Patient Problems Problems Reviewed?: Yes Final Diagnosis SEVERE URGENCY WITH INCONTINENCE AND OAB Patient Instructions/Follow Up Plan/Assessment/Instructions Please make appointment to been seen in office in 4 weeks. Tomorrow start showers no bath Keep bowels soft and moving Stay off bladder medicines In 48 hours, if no bleeding, may resume ASA and/or any blood thinner Increase oral fluids for 48 hours and then as needed. Diet and Activity as tolerated. If questions or concerns contact your physician Or seek help at emergency department. DAVID LYNN MD March 27, 2020 07:11
[2020-03-27] MEDS ORDERED: ONABOTULINUMTOXINA 100 UNIT (BOTOX) VIAL INJ ONE (07:15)
[2020-03-27] MEDS ORDERED: PHEN-640 PO (07:27)
[2020-03-27] MEDS ORDERED: NITR-65 PO (07:27)
--- NOTE | 2020-03-27 13:20 | OPERATIVE REPORT ---
DATE OF SERVICE: 03/27/2020 PREOPERATIVE DIAGNOSES: Severe urgency with incontinence and overactive bladder. POSTOPERATIVE DIAGNOSES: Severe urgency with incontinence and overactive bladder. OPERATION PERFORMED: Intravesical injection of Botox. SURGEON: Jarrett Lynn MD ANESTHESIA: General. COMPLICATIONS: None. DESCRIPTION OF PROCEDURE: Under satisfactory general anesthesia, the patient in lithotomy position, genitalia were prepped and draped in the usual sterile fashion. Cystoscope was introduced in the bladder that was half filled. I went ahead and injected using the Laborie needle set at into the detrusor muscle starting above and lateral the left ureteral orifice and working my way towards the right one and then going above it to inject a total of 20 injection, 0.5 mL at a time for a total of 100 units of Botox. There was very minimal bleeding. The bladder was evacuated and the cystoscope was removed. The patient tolerated the procedure and anesthesia well and was sent to recovery room in stable condition. PLAN: If it still does not work, we will give the option to the patient to either go to 200 unit in a month or to consider a TVT. Job ID: [id number] DocumentID: [id number] Dictated Date: 03/27/2020 08:12:01 Smearer Date: 03/27/2020 13:19:59 Dictated By: JARRETT LYNN MD
== END 2020-03-27 09:45 | disposition home or self-care (01) ==
LOC: SDC 06:03
PROVIDERS: ATTEND Urology
DX: N39.41 Urge incontinence (principal); N32.81 Overactive bladder; I10 Essential (primary) hypertension; E78.5 Hyperlipidemia, unspecified; E66.9 Obesity, unspecified; I73.9 Peripheral vascular disease, unspecified; F41.9 Anxiety disorder, unspecified; Z68.33 Body mass index [BMI] 33.0-33.9, adult; Z79.899 Other long term (current) drug therapy; Z90.710 Acquired absence of both cervix and uterus; Z90.49 Acquired absence of other specified parts of digestive tract
CPT/HCPCS: 87081

== ENCOUNTER 2020-04-12 13:15 | Emergency (ER) | payer MEDICARE, OTHER ==
[~2020-04-12] VITALS: Ht 157.4 cm; Wt 83.9 kg
[~2020-04-12 13:15] MED LIST changes: -FLUC150T PO; -NSTR15C TP
[2020-04-12] MEDS ORDERED: NSTR15C TP (13:45)
[2020-04-12] MEDS ORDERED: FLUC150T PO (13:46)
--- NOTE | 2020-04-12 13:47 | ED Integumentary General ---
General Chief Complaint: Skin/Wound Problems Stated Complaint: RASH Nursing Triage Note: rash under R breast that started approx 1 week ago after working out in the heat, has been treating with neosporin which is not helping History of Present Illness Date Seen by Provider: Apr 12, 2020 Time Seen by Provider: 13:30 Initial Comments 69-year-old female presents after having an echocardiogram for excoriation under her right breast. She states it's been present for approxim ately one week. She has been applying Neosporin with no improvement in her symptoms. No other complaints at this time. Timing/Duration: week Location: torso (isolated to right) Possible Cause: no cause identified Associated Symptoms: denies symptoms Allergies and Home Medications Allergies Coded Allergies: No Known Drug Allergies (Unverified , 08/04/19) Home Medications Alprazolam 0.5 Mg Tablet, 0.5 MG PO Q8H PRN for ANXIETY, (Reported) Atorvastatin Calcium 20 Mg Tablet, 20 MG PO DAILY, (Reported) Cholecalciferol (Vitamin D3) 125 Mcg Capsule, 125 MCG PO DAILY, (Reported) Cyanocobalamin 1,000 Mcg/Ml Inj, 1,000 MCG IM MONTHLY, (Reported) Duloxetine HCl 60 Mg Capsule.dr, 60 MG PO DAILY, (Reported) Enalapril Maleate 20 Mg Tablet, 20 MG PO DAILY, (Reported) Fluconazole 150 Mg Tablet, 150 MG PO DAILY Take 1 pill, wait 3 days, take second dose. Prescribed by: SYD GUILLORY on 04/12/20 1346 Gabapentin 100 Mg Capsule, 100 MG PO TID, (Reported) Metoprolol Succinate 50 Mg Tab.er.24h, 50 MG PO DAILY, (Reported) Mirtazapine 45 Mg Tablet, 45 MG PO HS, (Reported) Nitrofurantoin Monohyd/M-Cryst 100 Mg Capsule, 1 TAB PO BID WITH MEALS Prescribed by: YEE BROWN on 03/27/20 0727 Nystatin/Triamcinolone 15 Gm Cr, 1 EA TP TID Apply a thin layer to affected area 3 times daily. Prescribed by: SYD GUILLORY on 04/12/20 1345 Omeprazole 20 Mg Capsule.dr, 20 MG PO DAILY, (Reported) Phenazopyridine HCl 200 Mg Tablet, 1 TAB PO TID PRN for PAIN-MILD (1-4) Prescribed by: YEE BROWN on 03/27/20 0727 Pramipexole Di-HCl 0.25 Mg Tablet, 0.25 MG PO HS, (Reported) Trazodone HCl 50 Mg Tablet, 50 MG PO HS PRN for INSOMNIA, (Reported) Patient Home Medication List Home Medication List Reviewed: Yes Review of Systems Review of Systems Constitutional: no symptoms reported, see HPI Skin: see HPI, change in color (erythema, ), pruritus All Other Systems Reviewed Negative Unless Noted: Yes Past Skjnnnk-Gqblss-Rxpsho Hx Past Med/Social Hx: Reviewed Nursing Past Med/Soc Hx Patient Social History Alcohol Use: Denies Use Recreational Drug Use: No 2nd Hand Smoke Exposure: No Recent Foreign Travel: No Contact w/Someone Who Travel: No Recent Infectious Disease Expo: No Recent Hopitalizations: No Immunizations Up To Date PED Vaccines UTD: No Date of Pneumonia Vaccine: Jul 04, 2015 Date of Influenza Vaccine: Aug 09, 2019 Seasonal Allergies Seasonal Allergies: No Past Medical History Surgeries: Yes (macroplastique, botox in bladder) Gallbladder, Hysterectomy Respiratory: No Currently Using CPAP: No Currently Using BIPAP: No Cardiac: Yes (TAKES PLAVIX FOR BLOCKAGE IN LEG) Hypertension, Peripheral Vascular Neurological: No Sexually Transmitted Disease: Yes HIV/AIDS: No Genitourinary: Yes (MIXED INCONTINENCE) Gastrointestinal: No Musculoskeletal: Yes (RESTLESS LEG) Endocrine: No HEENT: No Loss of Vision: Denies Hearing Impairment: Denies Cancer: No Psychosocial: Yes Anxiety Integumentary: No Blood Disorders: No Adverse Reaction/Blood Tranf: No (N/A) Family Medical History No Pertinent Family Hx Physical Exam Vital Signs Vital Signs - First Documented 04/12/20 04/12/20 13:22 13:50 Temp 36.8 Pulse 58 Resp 18 B/P (MAP) 102/63 (76) Pulse Ox 100 O2 Delivery Room Air Capillary Refill : Less Than 3 Seconds General Appearance: WD/WN, no apparent distress Cardiovascular: normal peripheral pulses, regular rate, rhythm Respiratory: chest non-tender, lungs clear, normal breath sounds Neurologic/Psychiatric: no motor/sensory deficits, alert, normal mood/affect, oriented x 3 Skin: rash (erythema noted under right breast approximately 6 cm x 6 cm. No abscess or drainage noted, no warmth) Skin Problem Location: torso (right breast) Skin Problem Character: erythema Progress/Results/Core Measures Results/Orders Vital Signs/I&O 04/12/20 04/12/20 13:22 13:50 Temp 36.8 36.8 Pulse 58 60 Resp 18 18 B/P (MAP) 102/63 (76) 105/68 (76) Pulse Ox 100 O2 Delivery Room Air Blood Pressure Mean: 76 Departure Impression Primary Impression: Tinea corporis Disposition: 01 HOME, SELF-CARE Condition: Improved Departure-Patient Inst. Decision time for Depature: 13:40 Referrals: DAPHNE HECK MD (PCP/Family) Primary Care Physician Patient Instructions: Fungal Skin Rash (DC) Add. Discharge Instructions: Apply antifungal cream as prescribed. Take antifungal medication as prescribed. Follow-up with your primary care provider if symptoms are not improving or worsen. Clean area with a mild soap such as Dove. Keep area clean and dry. Have open to air and use fan or wheelchair van operator first responder on cool air. Return to emergency department for new, urgent health care needs. All discharge instructions reviewed with patient and/or family. Voiced understanding. Scripts Fluconazole (Diflucan) 150 Mg Tablet 150 MG PO DAILY, #2 TAB 0 Refills Take 1 pill, wait 3 days, take second dose. Prov: SYD GUILLORY 04/12/20 Nystatin/Triamcinolone (Nystatin-Triamcinolone Cream) 15 Gm Cr 1 EA TP TID, #1 TUBE 0 Refills Apply a thin layer to affected area 3 times daily. Prov: SYD GUILLORY 04/12/20 SYD GUILLORY Apr 12, 2020 13:46
[2020-04-12 13:50] VITALS: BP 105/68
--- OUTSIDE RECORDS SUMMARY | 2020-04-12 16:44 | XMS REPORT | Continuity of Care Document ---
[...] Code Description [place] [address] A1C (IN-HOUSE) 08/31/2012 66609 ROUT INE VENIPUNCTURE 09/09/2012 56793 STRE SS ECHO 09/09/2012 64341 CRP HS (CARDIO) 09/10/2012 Cardiolog [place] Vargas 11/10/2012 88810 ROUT INE VENIPUNCTURE 03/02/2013 67665 CBC 03/02/2013 91118 LIPI D PANEL 03/02/2013 33871 CMP 03/02/2013 7525380 GF R CALC (RESULT ONLY) 03/02/2013 55006 VIT B 12 03/02/2013 21791 FOLATE 03/02/2013 76453 DONTRELL MIN D 25-HYDROXY (D2,D3, TOTAL) 03/02/2013 47451 FERRITIN 03/02/2013 22631 IRON SERUM 03/03/2013 49595 IRON BNDNG CAP 03/03/2013 IRGROUP IR ON GROUP (Iron,TIBC, Ferritin) 03/06/2013 Cardiolog Micah Castro 06/08/2013 75651 XRAY KNEE LEFT, 1 OR 2 VIEWS 06/28/2013 NEUROLOGY EDWARD SHANE 06/28/2013 ORTHOPEDI DECKERKASSY 06/28/2013 G0008 FLU ADMINISTRATION (MEDICARE ONLY) 08/19/2013 58786 MAMM OGRAM, SCREENING 08/23/2013 38965 US B REAST ULTRASOUND, RIGHT 09/28/2013 51673 US B REAST ULTRASOUND, RIGHT 11/10/2013 Results [...] 7-25 CREATININE 0.79 mg/dL 0.60-0.93 eGFR NON-AFR. HAITIAN 75 mL/min/1.73m2 > OR = 60 eGFR [...] Status Pt. Type Provider Facility Loc./Unit Complaint [id number] 05/02/2014 15:39:00 05/02/2014 23:59: 59 [facility] Outpatient DEBI OMER DO [id number] 11/10/2013 15:28:00 11/10/2013 23:59: 59 [facility] Outpatient DEBI OMER DO [id number] 08/19/2013 08:49:00 08/19/2013 23:59: 59 [facility] Outpatient DEBI OMER DO [id number] 06/27/2013 13:36:00 06/27/2013 23:59: 59 [facility] Outpatient DEBI OMER DO [id number] 12/14/2012 10:09:00 12/14/2012 23:59: 59 [facility] [id number] 11/16/2012 10:00:00 11/16/2012 23:59: 59 [facility]patient [id number] 11/10/2012 10:20:00 11/10/2012 23:59: 59 [facility] Outpatient [id number] 10/14/2012 08:05:00 10/14/2012 23:59: 59 [facility] Outpatient DEBI OMER DO Khari [id number] 08/31/2012 10:32:00 08/31/2012 23:59:5 9 CLS Outpatient DEBI OMER DO [id number] 06/27/2013 13:36:00 Document Registration [id number] 06/08/2013 10:47:00 Document Registration [id number] 03/02/2013 11:12:00 Document Registration [id number] 12/22/2012 11:02:00 Document Registration [id number] 08/08/2016 10:05:00 Document Registration [id number] 04/10/2020 14:20:00 [facility] Outpatient UMANG MARK, [facility] [id number] 03/16/2020 15:40:00 Document Registration [id number] 12/23/2019 14:40:00 Document Registration [id number] 09/18/2017 11:00:00 Document Registration
== END 2020-04-12 13:52 | disposition home or self-care (01) ==
LOC: EDUNIT# 13:15 → ER 13:17
DX: B35.4 Tinea corporis (principal); I10 Essential (primary) hypertension; F41.9 Anxiety disorder, unspecified
CPT/HCPCS: 99282

== ENCOUNTER → 2020-04-12 | Outpatient (CLI) | payer MEDICARE, OTHER ==
[~2020-04-12] MED LIST changes: +FLUC150T PO; +NSTR15C TP
== END ==
LOC: CARD 12:17
PROVIDERS: ATTEND Family Medicine
DX: I70.90 Unspecified atherosclerosis (principal); R53.83 Other fatigue; I51.7 Cardiomegaly
CPT/HCPCS: 93306

== ENCOUNTER 2020-08-10 05:33 | Outpatient (RCR) | payer MEDICARE, OTHER ==
[~2020-08-10] VITALS: Ht 157 cm; Wt 86.3 kg
[~2020-08-10 05:33] MED LIST changes: +ENAL20TA16 PO; +FLUC150T PO; +NSTR15C TP
== END 2020-08-10 09:54 | disposition home or self-care (01) ==
LOC: PREOP 05:33
PROVIDERS: ATTEND Urology
DX: Z01.812 Encounter for preprocedural laboratory examination (principal); Z20.828 Contact with and (suspected) exposure to other viral communicable diseases
CPT/HCPCS: 87635

== ENCOUNTER → 2020-08-24 | Outpatient (CLI) | payer MEDICARE, OTHER | LOC: LABNPT 05:47 | PROVIDERS: ATTEND Urology | DX: Z01.812 Encounter for preprocedural laboratory examination (principal); N39.46 Mixed incontinence; Z20.828 Contact with and (suspected) exposure to other viral communicable diseases | CPT/HCPCS: 87635 ==

== ENCOUNTER 2020-08-28 07:11 | Day surgery (SDC) | payer MEDICARE, OTHER ==
[~2020-08-28] VITALS: Ht 157 cm; Wt 86.3 kg
[2020-08-28] VITALS (11 sets, daily range): BP systolic 98–153; BP diastolic 44–96
--- NOTE | 2020-08-28 07:11 | Progress Note-Pre Operative ---
Pre-Operative Progress Note H&P Reviewed The H&P was reviewed, patient examined and no changes noted. Date Seen by Provider: Aug 28, 2020 Time Seen by Provider: 08:15 Date H&P Reviewed: Aug 28, 2020 Time H&P Reviewed: 08:15 Pre-Operative Diagnosis: SEVERE MIXED INCONTINENCE, OAB AND ISD DAVID LYNN MD Aug 28, 2020 07:11
--- NOTE | 2020-08-28 07:23 | Progress Note-Post Operative ---
Post-Operative Progess Note Surgeon (s)/Internet Marketing Director (s) Surgeon DAVID LYNN MD Internet Marketing Director: NONE Pre-Operative Diagnosis SEVERE MIXED INCONTINENCE, OAB AND ISD Post-Operative Diagnosis SAME AND CYSTOCELE Procedure & Operative Findings Date of Procedure 08/28/20 Procedure Performed/Findings ANTERIOR REPAIR, PVS AND CYSTOSCOPY Anesthesia Type GENERAL Estimated Blood Loss Estimated blood loss (mL): 50cc Specimens/Packing Specimens Removed NONE PackinGM ESTRACE VAGINAL PACK DAVID LYNN MD Aug 28, 2020 07:23
[2020-08-28] MEDS ORDERED: cefTRIAXone FOR IV USE 1,000 MG in WATER (STERILE) FOR INJECTION 10 ML IV ONE (07:30)
[2020-08-28] MEDS ORDERED: proPOfol 200 MG/20 ML (DIPRIVAN) VIAL IV ONE (07:35)
[2020-08-28] MEDS ORDERED: fentaNYL INJECTION 100 MCG/2 ML AMP ONE (07:35)
[2020-08-28] MEDS ORDERED: ONDANSETRON 4 MG/2 ML (SDV) Z0FRAN ONE (07:35)
[2020-08-28] MEDS ORDERED: LIDOCAINE PF 2% 5 ML (XYLOCAINE) VIAL ONE (07:35)
[2020-08-28] MEDS ORDERED: CATHETER FLUSH 10 ML SYR IV PRN (07:45)
[2020-08-28] MEDS: LACTATED RINGERS 1,000 ML IV PRN ×2 (08:02→09:38)
[2020-08-28] MEDS ORDERED: SEVOFLURANE (ULTANE) 15 ML INHAL SOLN ONE ×2 (08:30→09:44)
[2020-08-28] MEDS ORDERED: LIDOCAINE/EPI 1%-1:100,000 (XYLOCAINE) 20ML ONE (08:55)
[2020-08-28] MEDS ORDERED: ESTRADIOL VAGINAL CREAM 42.5 GM (ESTRACE) VG ONE (08:55)
[2020-08-28] MEDS ORDERED: LACTATED RINGERS 1,000 ML IV SCH (09:34)
[2020-08-28] MEDS ORDERED: traZODone 50 MG (DESYREL) TAB PO PRN (09:45)
[2020-08-28] MEDS ORDERED: HYDROcodone/APAP 10 MG/325 MG (LORTAB) TAB PO PRN (09:45)
[2020-08-28] MEDS ORDERED: KETOROLAC 30 MG/ML VIAL ONE (09:54)
[2020-08-28] MEDS: KETOROLAC 30 MG/ML VIAL IV PRN ×3 (09:57→23:07)
--- NOTE | 2020-08-28 09:59 | Anesthesia-General Post-Op ---
General Patient Condition Mental Status/LOC: Same as Preop Cardiovascular: Satisfactory Nausea/Vomiting: Absent Respiratory: Satisfactory Pain: Controlled Complications: Absent Post Op Complications Complications None Follow Up Care/Instructions Patient Instructions None needed. Anesthesia/Patient Condition Patient Condition Patient is doing well, no complaints, stable vital signs, no apparent adverse anesthesia problems. MARGI GARCIA DO Aug 28, 2020 09:59
[2020-08-28] MEDS ORDERED: morphine INJ 10 MG/ML 1ML (SYR OR VIAL) IVP ONE (10:00)
[2020-08-28] MEDS ORDERED: ONDANSETRON 4 MG/2 ML (SDV) Z0FRAN IVP PRN (10:00)
--- NOTE | 2020-08-28 12:00 | NUR ---
CONTINUES TO DO WELL. VAGINAL PACKING IN PLACE. NO VAGINAL BLEEDING NOTED. GOOD URINE OUTPUT. TAKING ORAL FLUIDS WELL.
[2020-08-28] MEDS ORDERED: VITAMIN D3 125 MCG (5,000 UNITS) CAPSULE PO SCH (13:32)
[2020-08-28] MEDS ORDERED: CHLORASEPTIC LOZENGE MM PRN (13:45)
[2020-08-28] MEDS: ENALAPRIL 10 MG (VASOTEC) TAB PO SCH (14:04)
[2020-08-28] MEDS: meTOproloL SUCCINATE 50 MG (TOPROL XL) TAB PO SCH (14:07)
--- NOTE | 2020-08-28 14:37 | OPERATIVE REPORT ---
DATE OF SERVICE: 08/28/2020 PREOPERATIVE DIAGNOSIS: Severe mixed urinary incontinence with overactive bladder and ISD. POSTOPERATIVE DIAGNOSES: Severe mixed urinary incontinence with overactive bladder and ISD and cystocele. OPERATION PERFORMED: Anterior repair, pubovaginal sling and cystoscopy. SURGEON: Jarrett Lynn MD ANESTHESIA: General. COMPLICATIONS: None. DESCRIPTION OF PROCEDURE: Under satisfactory general anesthesia, the patient in extended lithotomy position, genitalia were prepped and draped in the usual sterile fashion with separate vaginal prep. David catheter was inserted, and clear urine was drained. The bladder was emptied. A weighted long vaginal retractor was placed posteriorly. The anterior vaginal wall was infiltrated with lidocaine and epinephrine for hydrodissection. A midline incision was made proximal to the meatus and carried down for several centimeters. The vaginal epithelium was dissected free from the underlying fascia and dissection was carried to store the ischial tuberosity, which was felt on both sides. The anterior repair was performed with interrupted 2-0 Vicryl with excellent support and elevation of the bladder. Then, I passed the sling using the Solyx device on both sides using the described technique. The sling was sitting nicely under the mid urethra with no twisting or laxity. The David catheter was removed. Cystoscopy confirmed intact ureteric orifices. Bladder with no foreign body, urethra with no foreign body and presence of the sling under the mid urethra. The bladder was left at least half full. The cystoscope was removed, and a manual Valsalva maneuver was performed repeatedly with no leak whatsoever. The excess vaginal epithelium was sharply excised and then it was approximated with a running 2-0 Vicryl Rapide type suture. Catheter was replaced in the bladder draining clear fluid. Estimated blood loss was 50 mL, none of which was replaced. Needle, sponge, instrument correct x2. A 2 grams Estrace vaginal pack was inserted. The patient tolerated the procedure and anesthesia well and was sent to recovery room in stable condition. Job ID: [id number] DocumentID: [id number] Dictated Date: 08/28/2020 09:43:02 Finance Vice President Date: 08/28/2020 14:36:31 Dictated By: JARRETT LYNN MD
--- NOTE | 2020-08-28 15:25 | NUR ---
RT IN ROOM TO INSTRUCT ON I.S.
--- NOTE | 2020-08-28 17:35 | NUR ---
PT REQUESTING SCDS OFF AT THIS TIME.
[2020-08-28] MEDS ORDERED: FLU QUAD HIGH DOSE 240 MCG/0.7 ML 2020-21 (FLUZONE) IM ONE (17:45)
--- NOTE | 2020-08-28 17:53 | NUR ---
DR. LYNN NOTIFIED PER PHONE OF PT REQUEST FOR AMBIEN. ORDER RECEIVED.
--- NOTE | 2020-08-28 17:53 | NUR ---
DEBI RAZA TRANSFERRED FROM PACU TO ROOM 304 VIA PT BED ACC BY THIEN YAN BELLSTAFF AFTER AN ANTERIOR REPAIR, PUBOVAGINAL SLING, AND CYSTOSCOPY TODAY BY DR. LYNN. DEBI RAZA introduced to surroundings, call light, bed controls, phone, TV, temperature control, lights, meal times, smoking policy, visitor policy, side rail policy, bathrooms and showers. Patient Rights given to patient in the handbook.G Addendum: 08/28/20 at 1823 by RANDA FARLEY RN WRONG TIME. SHOULD SAY 1033
[2020-08-28] MEDS ORDERED: PANTOPRAZOLE 20 MG TABLET (PROTONIX) PO ONE (20:01)
[2020-08-28] MEDS: PANTOPRAZOLE 20 MG TABLET (PROTONIX) PO PRN (20:03)
[2020-08-28] MEDS ORDERED: ZOLPIDEM 5 MG (AMBIEN) TAB PO NR (21:00)
[2020-08-28] MEDS ORDERED: PRAMIPEXOLE 0.125 MG (MIRAPEX) TABLET PO PRN (21:00)
[2020-08-28] MEDS ORDERED: CALCIUM CARBONATE 500 MG (TUMS) TAB.CHEW PO ONE (22:15)
[2020-08-29 01:54] VITALS: BP 110/55
[2020-08-29] MEDS: KETOROLAC 30 MG/ML VIAL IV PRN (05:34)
[2020-08-29 05:37] VITALS: BP 134/68
[2020-08-29 08:40] VITALS: BP 147/70
--- NOTE | 2020-08-29 08:40 | NUR ---
A.M. ASSESSMENT COMPLETED. VSS. PT VOIDED 50 CC CLEAR YELLOW URINE. PERICARE WITH PAD CHANGE. SCANT PINK VAGINAL DISCHARGE.OUT TO AMBULATE IN THE [place]. MOVES WELL. BACK TO SIT IN CHAIR FOR ANTIBIOTIC.
[2020-08-29] MEDS: ENALAPRIL 10 MG (VASOTEC) TAB PO SCH (08:50)
[2020-08-29] MEDS: meTOproloL SUCCINATE 50 MG (TOPROL XL) TAB PO SCH (08:50)
--- NOTE | 2020-08-29 08:59 | NUR ---
FLU VACCINE GIVEN IM IN RIGHT DELTOID. SITE CLEAR.
--- NOTE | 2020-08-29 09:15 | NUR ---
CALLED FOR BLADDER SCANNER FROM ED.
[2020-08-29] MEDS ORDERED: LEVOFLOXACIN 250 MG/50 ML IVPB 50 ML IV SCH (09:34)
--- NOTE | 2020-08-29 10:30 | NUR ---
AMBULATED TO THE DESK TO REQUEST TUMS. CONTINUES TO MOVE WELL.
[2020-08-29] MEDS ORDERED: CALCIUM CARBONATE 500 MG (TUMS) TAB.CHEW ONE (10:47)
[2020-08-29] MEDS: PANTOPRAZOLE 20 MG TABLET (PROTONIX) PO PRN (10:52)
[2020-08-29] MEDS ORDERED: CALCIUM CARBONATE 500 MG (TUMS) TAB.CHEW PO ONE (11:00)
[2020-08-29 12:30] VITALS: BP 154/75
--- NOTE | 2020-08-29 12:45 | NUR ---
VOIDED 175 CC URINE. BLADDER SCAN REVEALS 108 MLS RESIDUAL.
--- NOTE | 2020-08-29 12:50 | NUR ---
DR. LYNN NOTIFIED OF VOID AND RESIDUAL. PLAN TO SEE PT WITHIN THE HOUR.
--- NOTE | 2020-08-29 13:15 | NUR ---
EATING LUNCH. DOING WELL.
--- NOTE | 2020-08-29 13:40 | NUR ---
DR. LYNN HERE TO SEE PT. PLAN FOR DISCHARGE. [facility] CALLED TO [facility] PER PT REQUEST.
--- NOTE | 2020-08-29 13:48 | Progress Note - Urology ---
Progress Note-Urology Progress Notes/Assess & Plan Progress/Assessment & Plan DOING VERY WELL. VOIDED ON OWN 4 TIMES WITH SMALL RESIDUALS. DRY. HAPPY. HOME WITH INSTRUCTIONS Final Diagnosis INCONTINENCE DAVID LYNN MD Aug 29, 2020 13:48
--- NOTE | 2020-08-29 13:50 | Discharge Inst-Urology ---
Discharge Inst-Urology Reconcile Patient Problems Problems Reviewed?: Yes Final Diagnosis INCONTINENCE Patient Instructions/Follow Up Plan/Assessment/Instructions Please make appointment to been seen in office in 2 weeks. REST till then Showers, no bath Keep bowels soft and moving Increase oral fluids for 48 hours and then as needed. Diet as tolerated. If questions or concerns contact your physician Or seek help at emergency department. DAVID LYNN MD Aug 29, 2020 13:50
[2020-08-29] MEDS ORDERED: TRM50T PO (14:13)
[2020-08-29] MEDS ORDERED: CIPR-225 PO (14:13)
--- NOTE | 2020-08-29 14:30 | NUR ---
DISCHARGE INSTRUCTIONS REVIEWED WITH COPY TO PT. STATES UNDERSTANDING OF ALL INSTRUCTIONS AND NEED TO F/U SCHEDULED AND NEEDED.
[2020-08-29 14:50] VITALS: BP 154/75
--- NOTE | 2020-08-29 14:50 | NUR ---
DISMISSED VIA W/C FROM WS TO FAMILY CAR IN STABLE CONDITION ACC BY RANDA FARLEY RN.
== END 2020-08-29 14:50 | disposition home or self-care (01) ==
LOC: SDC 07:11 → EDSTATUS 08:30 → WS 10:44 → SDC 08-29 14:50
PROVIDERS: ATTEND Urology
DX: N39.46 Mixed incontinence (principal); N32.81 Overactive bladder; N36.42 Intrinsic sphincter deficiency (ISD); N81.10 Cystocele, unspecified; I10 Essential (primary) hypertension; I73.9 Peripheral vascular disease, unspecified; E78.5 Hyperlipidemia, unspecified; K21.9 Gastro-esophageal reflux disease without esophagitis; F41.9 Anxiety disorder, unspecified; Z79.02 Long term (current) use of antithrombotics/antiplatelets; Z79.899 Other long term (current) drug therapy; Z11.2 Encounter for screening for other bacterial diseases
CPT/HCPCS: 57240; 57288; 87081; 94664; C1771; 90662

== ENCOUNTER 2020-10-12 12:08 | Emergency (ER) | payer MEDICARE, OTHER ==
[~2020-10-12 12:08] MED LIST changes: +CIPR-225 PO; -CLIN300C11 PO; +CLIN300C12 PO
== END 2020-10-12 12:54 | disposition left against medical advice (07) ==
LOC: EDUNIT# 12:08 → ER 12:09
DX: R07.9 Chest pain, unspecified (principal); R06.02 Shortness of breath; R05 Cough

== ENCOUNTER → 2021-05-13 | Outpatient (CLI) | payer MEDICARE, OTHER | LOC: CARD 13:30 | PROVIDERS: ATTEND Internal Medicine Cardiovascular Disease | DX: I08.0 Rheumatic disorders of both mitral and aortic valves (principal); I11.9 Hypertensive heart disease without heart failure | CPT/HCPCS: 93306 ==

== ENCOUNTER 2021-06-12 05:34 | Outpatient (CLI) | payer MEDICARE, OTHER ==
[~2021-06-12] VITALS: Ht 157.5 cm; Wt 81.8 kg
[2021-06-12] MEDS ORDERED: ZOLP10TA PO (09:10)
[2021-06-12] MEDS ORDERED: ASPI-999 PO (09:11)
== END 2021-06-12 09:39 | disposition home or self-care (01) ==
LOC: PREOP 05:34
PROVIDERS: ATTEND Urology
DX: Z01.818 Encounter for other preprocedural examination (principal)

== ENCOUNTER 2021-06-18 06:40 | Day surgery (SDC) | payer MEDICARE, OTHER ==
[~2021-06-18] VITALS: Ht 157.5 cm; Wt 81.8 kg
[2021-06-18] VITALS (11 sets, daily range): BP systolic 107–148; BP diastolic 59–77
[~2021-06-18 06:40] MED LIST changes: +ZOLP10TA PO
[2021-06-18] MEDS ORDERED: LACTATED RINGERS 1,000 ML IV PRN (07:00)
[2021-06-18] MEDS ORDERED: cefTRIAXone 1,000 MG in WATER (STERILE) FOR INJECTION 10 ML IV ONE (07:00)
--- NOTE | 2021-06-18 07:27 | Progress Note-Pre Operative ---
Pre-Operative Progress Note H&P Reviewed The H&P was reviewed, patient examined and no changes noted. Date Seen by Provider: Jun 18, 2021 Time Seen by Provider: 07:26 Date H&P Reviewed: Jun 18, 2021 Time H&P Reviewed: 07:26 Pre-Operative Diagnosis: SEVERE INTRACTABLE REFRACTORY URGENCY WITH INCONTINENCE DAVID LYNN MD Jun 18, 2021 07:27
[2021-06-18] MEDS ORDERED: 0.9% SODIUM CHLORIDE PF INJ 20 ML VIAL ONE (07:33)
--- NOTE | 2021-06-18 07:34 | Progress Note-Post Operative ---
Post-Operative Progess Note Surgeon (s)/Shank Piece Tacker (s) Surgeon DAVID LYNN MD Shank Piece Tacker: NONE Pre-Operative Diagnosis SEVERE INTRACTABLE REFRACTORY URGENCY WITH INCONTINENCE Post-Operative Diagnosis SAME Procedure & Operative Findings Date of Procedure 06/18/21 Procedure Performed/Findings BOTOX ENDOSCOPIC INJECTIONS (200U) Anesthesia Type GENERAL Estimated Blood Loss Estimated blood loss (mL): NEGLIGIBLE Specimens/Packing Specimens Removed NONE Packing: NONE DAVID LYNN MD Jun 18, 2021 07:34
--- NOTE | 2021-06-18 07:36 | Discharge Inst-Urology ---
Discharge Inst-Urology Reconcile Patient Problems Problems Reviewed?: Yes Final Diagnosis INTRACTABLE SEVERE REFRACTORY URGENCY WITH INCONTINENCE Patient Instructions/Follow Up Plan/Assessment/Instructions Please make appointment to been seen in office in 4 weeks. Keep bowels soft and moving In 48 hours, if no bleeding, may resume ASA Increase oral fluids for 48 hours and then as needed. Diet and Activity as tolerated. If questions or concerns contact your physician Or seek help at emergency department. DAVID LYNN MD Jun 18, 2021 07:36
[2021-06-18] MEDS ORDERED: ONABOTULINUMTOXINA 200 UNIT INJ NR (08:15)
[2021-06-18] MEDS ORDERED: proPOfol 200 MG/20 ML (DIPRIVAN) VIAL IV ONE (08:18)
[2021-06-18] MEDS ORDERED: LIDOCAINE PF 2% 5 ML (XYLOCAINE) VIAL ONE (08:18)
[2021-06-18] MEDS ORDERED: ONDANSETRON 4 MG/2 ML (SDV) Z0FRAN ONE (08:18)
[2021-06-18] MEDS ORDERED: fentaNYL INJ 100 MCG/2 ML AMP ONE (08:18)
[2021-06-18] MEDS ORDERED: MIDAZOLAM 2 MG/2 ML (VERSED) VIAL ONE (08:18)
[2021-06-18] MEDS ORDERED: ONABOTULINUMTOXINA 100 UNIT (BOTOX) VIAL INJ NR (08:30)
[2021-06-18] MEDS ORDERED: NITR-65 PO (08:36)
[2021-06-18] MEDS ORDERED: PHEN-640 PO (08:36)
[2021-06-18] MEDS ORDERED: SEVOFLURANE (ULTANE) 15 ML INHAL SOLN ONE (08:58)
--- NOTE | 2021-06-18 09:47 | Anesthesia-General Post-Op ---
General Patient Condition Mental Status/LOC: Same as Preop Cardiovascular: Satisfactory Nausea/Vomiting: Absent Respiratory: Satisfactory Pain: Controlled Complications: Absent Post Op Complications Complications None Follow Up Care/Instructions Patient Instructions None needed. Anesthesia/Patient Condition Patient Condition Patient is doing well, no complaints, stable vital signs, no apparent adverse anesthesia problems. No complications reported per nursing. CRISTINA CRANDALL CRNA Jun 18, 2021 09:47
--- NOTE | 2021-06-18 10:59 | OPERATIVE REPORT ---
DATE OF SERVICE: 06/18/2021 PREOPERATIVE DIAGNOSIS: Intractable refractory severe urgency with incontinence. POSTOPERATIVE DIAGNOSIS: Intractable refractory severe urgency with incontinence. OPERATION PERFORMED: Botox endoscopic injection. SURGEON: Jarrett Lynn MD ANESTHESIA: General. COMPLICATIONS: None. DESCRIPTION OF PROCEDURE: Under satisfactory general anesthesia, the patient in lithotomy position, genitalia were prepped and draped in the usual sterile fashion. Cystoscope was introduced under vision and then the bladder was half filled. Injection of Botox in 20 sites with 1 mL at a time for a total of two syringes of Botox ie 200 unit. There was no bleeding. I removed the cystoscope, performed manual Valsalva maneuver that was negative. I reinserted the cystoscope to empty the bladder. The patient tolerated the procedure and anesthesia well and was sent to recovery room in stable condition. Job ID: [id number] DocumentID: [id number] Dictated Date: 06/18/2021 09:01:15 Parts Room Assistant Date: 06/18/2021 10:57:41 Dictated By: JARRETT LYNN MD
[2021-06-20] MEDS ORDERED: TRAM50TA3 PO (12:56)
[2021-06-20] MEDS ORDERED: ALPR0.5T7 PO (12:56)
[2021-06-20] MEDS ORDERED: TERB250T16 PO (12:56)
[2021-06-20] MEDS ORDERED: LOPE2CAP PO (12:56)
[2021-06-20] MEDS ORDERED: RT-ALBUINH IH (12:56)
[2021-06-20] MEDS ORDERED: TOLT2TAB19 PO (12:56)
[2021-06-20] MEDS ORDERED: GABA300C PO (12:56)
[2021-06-20] MEDS ORDERED: FESO8TAB PO (12:56)
[2021-06-20] MEDS ORDERED: CLOP75TA28 PO (12:56)
[2021-06-20] MEDS ORDERED: METO50TA7 PO (12:56)
[2021-06-20] MEDS ORDERED: MIRT45TA PO (12:56)
[2021-06-20] MEDS ORDERED: FLUO20CA42 PO (12:56)
[2021-06-20] MEDS ORDERED: AMLO-250 PO (12:56)
[2021-06-20] MEDS ORDERED: ERGO1250 PO (12:56)
[2021-06-20] MEDS ORDERED: ASPI-999 PO (12:56)
== END 2021-06-18 11:05 ==
LOC: SDC 06:40
PROVIDERS: ATTEND Urology
DX: N39.41 Urge incontinence (principal); N32.81 Overactive bladder; I10 Essential (primary) hypertension; K21.9 Gastro-esophageal reflux disease without esophagitis; E78.5 Hyperlipidemia, unspecified; M79.7 Fibromyalgia; F32.9 Major depressive disorder, single episode, unspecified; F41.9 Anxiety disorder, unspecified; Z79.82 Long term (current) use of aspirin; Z79.899 Other long term (current) drug therapy
CPT/HCPCS: 87081

== ENCOUNTER 2021-06-21 05:35 | Outpatient (RCR) | payer MEDICARE, OTHER ==
[~2021-06-21] VITALS: Ht 155 cm; Wt 85.3 kg
[~2021-06-21 05:35] MED LIST changes: +AMLO-250 PO; +ERGO1250 PO; +FESO8TAB PO; +FLUO20CA42 PO; +GABA300C PO; +LOPE2CAP PO; +MIRT45TA PO; +RT-ALBUINH IH; +TERB250T16 PO; +TOLT2TAB19 PO; +TRAM50TA3 PO
== END 2021-06-21 13:10 | disposition home or self-care (01) ==
LOC: PREOP 05:35
PROVIDERS: ATTEND Surgery
DX: Z01.812 Encounter for preprocedural laboratory examination (principal); K21.9 Gastro-esophageal reflux disease without esophagitis; Z20.822 Contact with and (suspected) exposure to COVID-19
CPT/HCPCS: 87635

== ENCOUNTER 2021-06-25 09:03 | Day surgery (SDC) | payer MEDICARE, OTHER ==
[~2021-06-25] VITALS: Ht 155 cm; Wt 85.3 kg
[2021-06-25] MEDS ORDERED: LACTATED RINGERS 1,000 ML IV STA (09:10)
[2021-06-25] MEDS ORDERED: LACTATED RINGERS 1,000 ML IV ONE (09:12)
[2021-06-25] MEDS ORDERED: HURRICAINE EXT TUBE (BENZOCAINE) XX PRN (09:15)
[2021-06-25 09:41] VITALS: BP 110/68
[2021-06-25] MEDS ORDERED: PROPOFOL INJECTION 0 ML IV ONE (10:56)
[2021-06-25] MEDS ORDERED: PROPOFOL INJECTION 50 ML IV ONE (10:56)
--- NOTE | 2021-06-25 11:41 | Progress Note-Post Operative ---
Post-Operative Progess Note Surgeon (s)/Garnett Mechanic (s) Surgeon VANESSA FIELDS DO Garnett Mechanic: na Pre-Operative Diagnosis diarrhea, possible celiac, gerd Post-Operative Diagnosis hiatal hernia, reflux esophagitis, dierticulosis Procedure & Operative Findings Date of Procedure 06/25/21 Procedure Performed/Findings egd c biopsies, colonoscopy Anesthesia Type per computerized mill recorder Estimated Blood Loss Estimated blood loss (mL): none Specimens/Packing Specimens Removed duodenum, antrum, ge VANESSA FIELDS DO Jun 25, 2021 11:41
[2021-06-25 11:42] VITALS: BP 101/66
[2021-06-25] MEDS ORDERED: PANT40TA2 PO (11:44)
--- NOTE | 2021-06-25 11:45 | Discharge Inst-Simple/Standard ---
Discharge Inst-Standard Discharge Medications New, Converted or Re-Newed RX: Transmitted to Pharmacy Patient Instructions/Follow Up Plan of Care/Instructions/FU: 2-3 weeks Shaq Activity as Tolerated: Yes Discharge Diet: Regular Diet (high fiber) VANESSA FIELDS DO Jun 25, 2021 11:45
[2021-06-25 11:47] VITALS: BP 146/66
[2021-06-25 11:50] VITALS: BP 146/66
[2021-06-25 12:30] VITALS: BP 152/71
[2021-06-25 12:45] VITALS: BP 152/71
--- NOTE | 2021-06-25 12:58 | Anesthesia-General Post-Op ---
MAC Patient Condition Mental Status/LOC: Same as Preop Cardiovascular: Satisfactory Nausea/Vomiting: Absent Respiratory: Satisfactory Pain: Controlled Complications: Absent Post Op Complications Complications None Follow Up Care/Instructions Patient Instructions None needed. Anesthesiology Discharge Order Discharge Order Patient is doing well, no complaints, stable vital signs, no apparent adverse anesthesia problems. No complications reported per nursing. CRISTINA CRANDALL CRNA Jun 25, 2021 12:58
--- NOTE | 2021-06-25 16:41 | OPERATIVE REPORT ---
DATE OF SERVICE: 06/25/2021 PREOPERATIVE DIAGNOSES: Diarrhea, possible celiac, GERD. POSTOPERATIVE DIAGNOSES: Hiatal hernia, reflux esophagitis, diverticulosis. PROCEDURE: EGD with biopsies, colonoscopy. SURGEON: Vanessa New DO ANESTHESIA: Per MASTER CONTROL SUPERVISOR. ESTIMATED BLOOD LOSS: None. COMPLICATIONS: None. SPECIMENS: Duodenum, antrum and GE junction. INDICATIONS: The patient is a 70-year-old female, who has had some diarrhea and felt to be possible celiac, she also has GERD symptoms. She understands risks and benefits of procedure and wished to proceed with procedure. Consent was signed in the chart. DESCRIPTION OF PROCEDURE: The patient was taken to the endoscopy suite, placed in left lateral recumbent position. Timeout was performed. Scope was inserted in mouth, down the esophagus, stomach and into the duodenum without difficulty. There were no polyps, masses or ulcerations within the duodenum. Scope was then slowly retracted back. Biopsy of the duodenum was obtained. Scope was then slowly retracted back to stomach where it was further insufflated. Biopsy of the antrum was obtained. No polyps, masses or ulcerations. Scope was retroflexed noting no other pathology. 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 Biopsy was obtained. Scope was then slowly retracted back until completely removed, noting no other pathology. Digital rectal exam was performed. No palpable polyps, masses or ulcerations. Scope was inserted in the rectum, advanced all the way to cecum with minimal difficulty. Prep was adequate. No polyps, masses or ulcerations within the cecum, ascending, transverse, descending and sigmoid colon. Through the majority of the left colon, diverticulosis is present. Once in the rectum, scope was inserted and retracted multiple times, noting no other pathology. Scope was then slowly retracted back until completely removed. The patient tolerated procedure well without any complications, taken to recovery room in stable condition. RECOMMENDATIONS: The patient is currently on omeprazole. We will change her to Protonix 40 mg daily. I will see how her symptoms are doing and follow up in about 2 to 3 weeks. The patient will need repeat colonoscopy on benefits versus risk evaluation. If she has any problems, she should be reevaluated at that time otherwise, likely does not need another colonoscopy. Job ID: [id number] DocumentID: [id number] Dictated Date: 06/25/2021 11:45:06 Router Operator Pin Date: 06/25/2021 16:41:14 Dictated By: VANESSA NEW DO
== END 2021-06-25 12:50 | disposition home or self-care (01) ==
LOC: ENDO 09:03
PROVIDERS: ATTEND Surgery
DX: K21.00 Gastro-esophageal reflux disease with esophagitis, without bleeding (principal); J44.9 Chronic obstructive pulmonary disease, unspecified; K57.30 Diverticulosis of large intestine without perforation or abscess without bleeding; K31.89 Other diseases of stomach and duodenum; I10 Essential (primary) hypertension; I73.9 Peripheral vascular disease, unspecified; F32.9 Major depressive disorder, single episode, unspecified; F41.9 Anxiety disorder, unspecified; M79.7 Fibromyalgia; M19.90 Unspecified osteoarthritis, unspecified site; E78.00 Pure hypercholesterolemia, unspecified; I25.10 Atherosclerotic heart disease of native coronary artery without angina pectoris; Z79.899 Other long term (current) drug therapy; Z79.891 Long term (current) use of opiate analgesic; Z79.82 Long term (current) use of aspirin; Z90.49 Acquired absence of other specified parts of digestive tract; Z79.02 Long term (current) use of antithrombotics/antiplatelets; Z87.891 Personal history of nicotine dependence
CPT/HCPCS: 88305

== ENCOUNTER 2021-08-03 21:09 | Emergency (ER) | payer MEDICARE, OTHER ==
[~2021-08-03] VITALS: Ht 157.5 cm; Wt 81.6 kg
[~2021-08-03 21:09] MED LIST changes: +PANT40TA2 PO
[2021-08-03 22:05] LABS: BASOPHILS % (AUTO) 0 % (0-10); EOSINOPHILS # (AUTO) 0.1 10^3/uL (0.0-0.3); EOSINOPHILS % (AUTO) 1 % (0-10); HEMATOCRIT 39 % (35-52); HEMOGLOBIN 12.7 g/dL (11.5-16.0); LYMPHOCYTES # (AUTO) 2.1 10^3/uL (1.0-4.0); LYMPHOCYTES % (AUTO) 21 % (12-44); MEAN CORPUSCULAR HEMOGLOBIN 31 pg (25-34); MEAN CORPUSCULAR HGB CONC 32 g/dL (32-36); MEAN CORPUSCULAR VOLUME 96 fL (80-99); MONOCYTES # (AUTO) 0.5 10^3/uL (0.0-1.0); MONOCYTES % (AUTO) 6 % (0-12); NEUTROPHILS # (AUTO) 7.1 10^3/uL (1.8-7.8); NEUTROPHILS % (AUTO) 72 % (42-75); PLATELET COUNT 330 10^3/uL (130-400); WHITE BLOOD COUNT 9.9 10^3/uL (4.3-11.0)
[2021-08-03 22:18] LABS: ALBUMIN 4.1 GM/DL (3.2-4.5); CHLORIDE 106 MMOL/L (98-107); POTASSIUM 3.8 MMOL/L (3.6-5.0); SODIUM 141 MMOL/L (135-145)
[2021-08-03 22:20] LABS: CALCIUM 9.5 MG/DL (8.5-10.1)
[2021-08-03 22:21] LABS: GLUCOSE 111 MG/DL (70-105); TOTAL PROTEIN 7.9 GM/DL (6.4-8.2)
[2021-08-03 22:22] LABS: CARBON DIOXIDE 23 MMOL/L (21-32)
[2021-08-03 22:23] LABS: BILIRUBIN,TOTAL 0.3 MG/DL (0.1-1.0)
[2021-08-03 22:24] LABS: ALKALINE PHOSPHATASE 106 U/L (40-136); CREATININE SERUM 0.94 MG/DL (0.60-1.30); GFR ESTIMATED 58
[2021-08-03 22:26] LABS: BUN/CREATININE RATIO 23
[2021-08-03 22:27] LABS: ALANINE AMINOTRANSFERASE 17 U/L (0-55)
[2021-08-03 22:36] LABS: FIBRIN DEGRADATION PRODUCTS 0.95 UG/ML (0.00-0.49); INR 0.9 (0.8-1.4); PROTHROMBIN TIME PATIENT 12.9 SEC (12.2-14.7)
--- NOTE | 2021-08-03 22:37 | Diagnostic Imaging Report ---
INDICATION: Edema, hypertension. COMPARISON: 10/23/2016. FINDINGS: The lungs are clear aside from trace left infrahilar partial atelectasis. No edema, pneumonia, effusion or pneumothorax. There is no failure pattern. IMPRESSION: Trace atelectasis otherwise negative. Dictated by: Dictated on workstation # [id number]
--- NOTE | 2021-08-03 22:39 | ED Lower Extremity ---
General Chief Complaint: Lower Extremity Stated Complaint: BILAT FEET SWELLING Nursing Triage Note: PT TO FT2 VIA WC W REPORTS OF BILAT LEG SWELLING AND PAIN, PRIMARILY RT LEG X1 MONTH. PT ALSO REPORTS RT LEG CRAMPS AND SAYS SHE HAS BEEN ON HER FEET A LOT LATELY PERFORMING PHYSICAL ACTIVITY, MAING PAIN AND SWELLING WORSE. PT A&OX4. Source: patient (PT IS LIMITED HISTORIAN) History of Present Illness Date Seen by Provider: Aug 03, 2021 Time Seen by Provider: 21:40 Initial Comments PT ARRIVES VIA POV FROM HOME C/O BILATERAL FEET AND LOWER LEG SWELLING AND PAIN FOR OVER A MONTH, GRADUALLY GETTING WORSE HAS BEEN WORSE ON THE RIGHT ALSO HAS BEEN HAVING CRAMPING TO RIGHT CALF FOR THE LAST MONTH NO PARESTHESIAS OR MOTOR DEFICITS NO INJURY NO SKIN DISCOLORATION NO FEVER NO CHEST PAIN NO SHORTNESS OF BREATH NO PALPITATIONS NO DIZZINESS OR SYNCOPE NOTHING WORSENS OR IMPROVES PAIN , BUT HAS NOT TAKEN ANYTHING FOR PAIN AT ANY TIME SYMPTOMS NO DIFFERENT TONIGHT ( THURSDAY NIGHT) HAS NOT SOUGHT CARE UNTIL TONIGHT STATES SHE HAS BEEN ON HER FEET ALOT THE LAST COUPLE OF MONTHS PT HAS HISTORY OF PERIPHERAL ARTERY DISEASE AND HAD LEFT POSTERIOR TIBIAL ARTERY STENOSIS, WITH SUCCESSFUL BALLOON ANGIOPLASTY 10/[address] MATTHEWS. PT TAKES 2 BABY ASPIRINS DAILY, AND NO OTHER ANTICOAGULANTS. PT HAS RECENTLY ESTABLISHED WITH DR. VANCE SINCE DR. MATTHEWS LEFT THE AREA. SHE SAW HIM "A MONTH OR TWO AGO" --STATES HE DID NOT CHANGE ANY OF HER MEDICATIONS SHE STATES DR. HECK DID STOP HER METOPROLOL "3 MONTHS AGO" BECAUSE SHE WAS HAVING EPISODES OF HYPOTENSION. PT STILL TAKES ENALAPRIL AT SAME DOSE SHE HAS BEEN ON FOR A LONG TIME IN JUN[place], DR. LYNN HAD HER STOP OXYBUTYNIN AND STARTED HER ON GEMTESA FOR CHRONIC BLADDER PROBLEMS ALSO WAS STARTED ON PANTOPRAZOLE IN [place] BY DR. FIELDS FOR GERD PCP: [facility], DR. HECK FORESTRY CONTRACTOR: DR. VANCE UROLOGIST: DR. LYNN SURGEON: DR. FIELDS Allergies and Home Medications Allergies Coded Allergies: No Known Drug Allergies (Unverified , 06/18/21) Patient Home Medication List Home Medication List Reviewed: Yes Albuterol Sulfate (Proair Hfa) 1 Puff Puff, 2 PUFF IH Q6H PRN for WHEEZING, (Reported) Entered as Reported by: EUGENIO MAYA on 06/20/21 1256 Alprazolam (Alprazolam) 0.5 Mg Tablet, 0.5 MG PO TID, (Reported) Entered as Reported by: EUGENIO MAYA on 06/20/21 1256 Amlodipine Besylate (Amlodipine Besylate) 5 Mg Tablet, 5 MG PO DAILY, (Reported) Entered as Reported by: EUGENIO MAYA on 06/20/21 1256 Apixaban (Eliquis) 5 Mg Tablet, 5 MG PO BID Prescribed by: KATHIA RAINES on 08/03/21 2308 Aspirin (Aspirin) 81 Mg Tab.chew, 81 MG PO DAILY, (Reported) Entered as Reported by: EUGENIO MAYA on 06/20/21 125 Atorvastatin Calcium (Atorvastatin Calcium) 20 Mg Tablet, 20 MG PO DAILY, (Reported) Entered as Reported by: GIANCARLO WAGNER on 03/20/20 1318 Clopidogrel Bisulfate (Clopidogrel) 75 Mg Tablet, 75 MG PO DAILY, (Reported) Entered as Reported by: EUGENIO MAYA on 06/20/21 125 Enalapril Maleate (Enalapril Maleate) 20 Mg Tablet, 20 MG PO DAILY, (Reported) Entered as Reported by: GIANCARLO WAGNER on 08/04/19 1250 Ergocalciferol (Vitamin D2) (Vitamin D2) 1,250 Mcg Capsule, 1,250 MCG PO DAILY, (Reported) Entered as Reported by: EUGENIO MAYA on 06/20/21 125 Fesoterodine Fumarate (Toviaz) 8 Mg Tab.er.24h, 8 MG PO DAILY, (Reported) Entered as Reported by: EUGENIO MAYA on 06/20/21 1256 Fluoxetine HCl (Prozac) 20 Mg Capsule, 20 MG PO DAILY, (Reported) Entered as Reported by: EUGENIO MAYA on 06/20/21 125 Gabapentin (Neurontin) 300 Mg Capsule, 300 MG PO TID, (Reported) Entered as Reported by: EUGENIO MAYA on 06/20/21 1256 Loperamide HCl (Loperamide) 2 Mg Capsule, 2 MG PO QID, (Reported) Entered as Reported by: EUGENIO MAYA on 06/20/21 1256 Mirtazapine (Mirtazapine) 45 Mg Tab.rapdis, 45 MG PO HS, (Reported) Entered as Reported by: EUGENIO MAYA on 06/20/21 1256 Pantoprazole Sodium (Protonix) 40 Mg Tablet.dr, 40 MG PO DAILY Prescribed by: VANESSA FIELDS on 06/25/21 1144 Pramipexole Di-HCl (Mirapex) 0.25 Mg Tablet, 0.25 MG PO HS PRN for RESTLESSNESS, (Reported) Entered as Reported by: GIANCARLO WAGNER on 03/20/20 1318 Terbinafine HCl (Terbinafine HCl) 250 Mg Tablet, 250 MG PO DAILY, (Reported) Entered as Reported by: EUGENIO MAYA on 06/20/21 1256 Tolterodine Tartrate (Tolterodine Tartrate) 2 Mg Tablet, 2 MG PO DAILY, (Reported) Entered as Reported by: EUGENIO MAYA on 06/20/21 1256 Tramadol HCl (Tramadol HCl) 50 Mg Tablet, 50 MG PO Q4H, (Reported) Entered as Reported by: EUGENIO MAYA on 06/20/21 1256 Zolpidem Tartrate (Ambien) 10 Mg Tablet, PO HS, (Reported) Entered as Reported by: JENNIFFER CARLISLE on 06/12/21 0910 Review of Systems Constitutional: no symptoms reported; No chills, No diaphoresis, No dizziness, No fever Respiratory: no symptoms reported Cardiovascular: No chest pain; edema, Hx of Intervention; No palpitations, No syncope, No vascular heart diseas Gastrointestinal: no symptoms reported Genitourinary: No dysuria; other (NO CHANGE IN CHRONIC INCONTINENCE) Musculoskeletal: see HPI Skin: no symptoms reported Psychiatric/Neurological: No Symptoms Reported; Denies Numbness, Denies Paresthesia, Denies Tingling, Denies Weakness Past Iucwwqa-[id number]-[id number] Hx Patient Social History Tobacco Use?: No Smoking Status: Never a Smoker Use of E-Cig and/or Vaping dev: No Substance use?: No Alcohol Use?: No Pt feels they are or have been: No Immunizations Up To Date PED Vaccines UTD: No First/Initial COVID19 Vaccinat: 02/08/2021 Second COVID19 Vaccination Eddy: 03/07/2021 COVID19 Vaccine Utility Teller: MODERNA Seasonal Allergies Seasonal Allergies: No Past Medical History Surgery/Hospitalization HX: PERIPHERAL ANGIOGRAM 10/[address] MATTHEWS--SUCCESSFUL BALLOON ANGIOPLASTY OF LEFT POSTERIOR TIBIAL ARTERY CARDIAC CATH [address] TOBIAS-MILD DISEASE, NO INTERVENTION ECHOCARDIOGRAM 05/13/21--EF 60-65%, MILD DIASTOLIC DSYFUNCTION, MODERATE AORTIC STENOSIS AND MILD AORTIC REGURGITATION CHOLECYSTECTOMY HYSTERECTOMY/BILATERAL SALPINGO-OOPHORECTOMY EGD/COLONOSCOPY 06/25/[address] FIELDS-HIATAL HERNIA, GERD, DIVERTICULOSIS MULTIPLE CYSTOSCOPIES, BOTOX INJECTIONS IN BLADDER PUBO-VAGINAL SLING, ANTERIOR REPAIR, CYSTOSCOPY 08/28/[address] LYNN MACROPLASTY BLADDER IMPLANT 08/[address] 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 CLERK History: Hysterectomy, Menopausal Sexually Transmitted Disease: Yes HIV/AIDS: No Genitourinary: Yes (MIXED INCONTINENCE-MULTIPLE BLADDER PROCEDURES) UTI-Chronic Gastrointestinal: Yes Gastroesophageal Reflux, Diverticulosis, Hiatal Hernia, Gall Bladder Disease, Irritable Bowel Musculoskeletal: Yes (RESTLESS LEG) Arthritis, Fibromyalgia, Back Injury Endocrine: No HEENT: No Loss of Vision: Denies Hearing Impairment: Denies Cancer: No Psychosocial: Yes Anxiety, Depression Integumentary: No Blood Disorders: No Adverse Reaction/Blood Tranf: No (N/A) Family Medical History No Pertinent Family Hx Physical Exam Vital Signs Vital Signs - First Documented 08/03/21 21:28 Temp 36.4 Pulse 86 Resp 20 B/P (MAP) 138/89 (105) Pulse Ox 98 O2 Delivery Room Air Capillary Refill : Less Than 3 Seconds Height, Weight, BMI Height: 5'2.00" Weight: 189lbs. 0.0oz. 85.769938nw; 32.00 BMI Method: General Appearance: WD/WN, no apparent distress Cardiovascular: regular rate, rhythm, no murmur Respiratory: normal breath sounds Gastrointestinal: non tender, soft Hips: bilateral hip normal inspection Legs: bilateral leg other (1+ SWELLING TO RIGHT LOWER LEG/ANKLE/FOOT; TRACE SWELLING TO LEFT LOWER LEG/ANKLE/FOOT. FEET PINK AND WARM WITH GOOD CAPILLARY REFILL BILATERAL AND EQUALLY. PULSES 1+/4 BILATERALLY. NO WOUNDS, LESIONS, OR SKIN DISCOLORATION. MILD RIGHT CALF TENDERNESS, BUT NO CORDING, NEGATIVE RICHARD'S BILATERALLY. ) Knees: bilateral knee normal inspection Ankles: bilateral ankle other ( ABOVE) Feet: bilateral foot other ( ABOVE) Neurologic/Tendon: normal sensation, normal motor functions, normal tendon functions Neurologic/Psychiatric: electrical line splicer II-XII nml as tested, no motor/sensory deficits, alert, normal mood/affect, oriented x 3 Skin: normal color, warm/dry Progress/Results/Core Measures Results/Orders Lab Results Laboratory Tests Test 08/03/21 21:54 Range/Units White Blood Count 9.9 4.3-11.0 10^3/uL Red Blood Count 4.11 3.80-5.11 10^6/uL Hemoglobin 12.7 11.5-16.0 g/dL Hematocrit 39 35-52 % Mean Corpuscular Volume 96 80-99 fL Mean Corpuscular Hemoglobin 31 25-34 pg Mean Corpuscular Hemoglobin Concent 32 32-36 g/dL Red Cell Distribution Width 13.4 10.0-14.5 % Platelet Count 330 130-400 10^3/uL Mean Platelet Volume 10.0 9.0-12.2 fL Immature Granulocyte % (Auto) 0 % Neutrophils (%) (Auto) 72 42-75 % Lymphocytes (%) (Auto) 21 12-44 % Monocytes (%) (Auto) 6 0-12 % Eosinophils (%) (Auto) 1 0-10 % Basophils (%) (Auto) 0 0-10 % Neutrophils # (Auto) 7.1 1.8-7.8 10^3/uL Lymphocytes # (Auto) 2.1 1.0-4.0 10^3/uL Monocytes # (Auto) 0.5 0.0-1.0 10^3/uL Eosinophils # (Auto) 0.1 0.0-0.3 10^3/uL Basophils # (Auto) 0.0 0.0-0.1 10^3/uL Immature Granulocyte # (Auto) 0.0 0.0-0.1 10^3/uL Prothrombin Time 12.9 12.2-14.7 SEC INR Comment 0.9 0.8-1.4 Activated Partial Thromboplast Time 35 24-35 SEC D-Dimer 0.95 H 0.00-0.49 UG/ML Sodium Level 141 135-145 MMOL/L Potassium Level 3.8 3.6-5.0 MMOL/L Chloride Level 106 98-107 MMOL/L Carbon Dioxide Level 23 21-32 MMOL/L Anion Gap 12 5-14 MMOL/L Blood Urea Nitrogen 22 H 7-18 MG/DL Creatinine 0.94 0.60-1.30 MG/DL Estimat Glomerular Filtration Rate 58 BUN/Creatinine Ratio 23 Glucose Level 111 H 70-105 MG/DL Calcium Level 9.5 8.5-10.1 MG/DL Corrected Calcium 9.4 8.5-10.1 MG/DL Magnesium Level 2.0 1.6-2.4 MG/DL Total Bilirubin 0.3 0.1-1.0 MG/DL Aspartate Amino Transf (AST/SGOT) 18 5-34 U/L Alanine Aminotransferase (ALT/SGPT) 17 0-55 U/L Alkaline Phosphatase 106 40-136 U/L Troponin I < 0.028 <0.028 NG/ML B-Type Natriuretic Peptide 35.2 <100.0 PG/ML Total Protein 7.9 6.4-8.2 GM/DL Albumin 4.1 3.2-4.5 GM/DL TSH [place] Testing 1.37 0.35-4.94 UIU/ML My Orders Orders - KATHIA RAINES DO Ed Iv/Invasive Line Start (08/03/21 21:51) Ekg Tracing (08/03/21 21:51) BNP (08/03/21 21:51) Cbc With Automated Diff (08/03/21 21:51) Comprehensive Metabolic Panel (08/03/21 21:51) Fibrin Degradation Products (08/03/21 21:51) Magnesium (08/03/21 21:51) Protime With Inr (08/03/21 21:51) Partial Thromboplastin Time (08/03/21 21:51) Thyroid Analyzer (08/03/21 21:51) Troponin I (08/03/21 21:51) Chest Pa/Lat (2 View) (08/03/21 21:51) Enoxaparin Injection (Lovenox Injection) (08/03/21 23:00) Toño Hose (08/03/21 23:08) Medications Given in ED Current Medications Medications Dose Ordered Sig/Elly Route Start Time Stop Time Status Last Admin Dose Admin Enoxaparin Sodium 80 mg ONCE ONCE SC 08/03/21 23:00 08/03/21 23:01 DC 08/03/21 23:02 80 MG Vital Signs/I&O 08/03/21 08/03/21 21:28 23:14 Temp 36.4 Pulse 86 82 Resp 20 18 B/P (MAP) 138/89 (105) 133/82 Pulse Ox 98 98 O2 Delivery Room Air Room Air Blood Pressure Mean: 105 Progress Progress Note : Progress Note UNABLE TO OBTAIN ULTRASOUND AT THIS TIME, WILL TREAT EMPIRICALLY WITH LOVENOX AND ELIQUIS AND ORDER OUTPATIENT ULTRASOUND FOR TOMORROW OR THURSDAY MORNING- DEPENDING ON WHEN ULTRASOUND IS AVAILABLE. Initial ECG Impression Date: Aug 03, 2021 Initial ECG Impression Time: 21:58 Initial ECG Rate: 79 Initial ECG Rhythm: Normal Sinus Initial ECG Impression: Normal Diagnostic Imaging Comments CXR--NO ACUTE PROCESS, PER RADIOLOGIST REPORT AT 2239 Reviewed: Reviewed by Me Departure Impression Primary Impression: Leg edema Disposition: HOME, SELF-CARE Condition: Stable Departure-Patient Inst. Decision time for Depature: 22:51 Referrals: DAPHNE HECK MD (PCP/Family) Primary Care Physician Patient Instructions: Dependent Edema (DC) Add. Discharge Instructions: ELEVATE LEGS MUCH POSSIBLE TOÑO HOSE NEEDED FOR SWELLING CONTINUE YOUR CURRENT MEDICATIONS PRESCRIBED CALL IN THE MORNING TO SCHEDULE OUTPATIENT ULTRASOUND FOLLOW UP WITH YOUR DR IN 2-3 DAYS FOR FURTHER CARE All discharge instructions reviewed with patient and/or family. Voiced understanding. Scripts Apixaban (Eliquis) 5 Mg Tablet 5 MG PO BID for 30 Days, #74 TAB TAKE 2 TABLETS BID X 7 DAYS, THEN 1 TABLET BID Prov: KATHIA RAINES DO 08/03/21 KATHIA RAINES DO Aug 03, 2021 22:39
[2021-08-03 22:47] LABS: TSH (THYROID ANALYZER) 1.37 UIU/ML (0.35-4.94)
[2021-08-03] MEDS ORDERED: APIX5TAB PO ×2 (22:54→23:08)
[2021-08-03] MEDS ORDERED: ENOXAPARIN 80 MG/0.8 ML (LOVENOX) SYR SC ONE (23:00)
[2021-08-03 23:14] VITALS: BP 133/82
== END 2021-08-03 23:14 | disposition home or self-care (01) ==
LOC: EDUNIT# 21:09 → ER 21:11
DX: R60.0 Localized edema (principal); I10 Essential (primary) hypertension; E78.00 Pure hypercholesterolemia, unspecified; F41.9 Anxiety disorder, unspecified; K21.9 Gastro-esophageal reflux disease without esophagitis; F32.9 Major depressive disorder, single episode, unspecified; Z79.899 Other long term (current) drug therapy; Z79.82 Long term (current) use of aspirin; Z79.01 Long term (current) use of anticoagulants
CPT/HCPCS: 36415; 71046; 80053; 83735; 83880; 84443; 84484; 85025; 85379; 85610; 85730; 93005

== ENCOUNTER → 2022-01-07 | Outpatient (CLI) | payer MEDICARE, OTHER ==
[~2022-01-07] MED LIST changes: +APIX5TAB PO; +CLIN-144 PO; -CLIN300C12 PO; -TERB250T16 PO; +TERB250T88 PO
--- NOTE | 2022-01-07 16:29 | Diagnostic Imaging Report ---
INDICATION: Postmenopausal screening COMPARISON: Baseline FINDINGS: AP Spine L1-L4: [BMD (g/cm2): 0.974] [T-Score: -1.9] [Z-Score: -0.7] [BMD Previous: na] [BMD % Change: na] LT Hip Neck: [BMD (g/cm2): 0.857] [T-Score: -1.3] [Z-Score: 0.2] LT Hip Total: [BMD (g/cm2):0.983] [T-Score:-0.2] [Z-Score: 1.0] [BMD Previous: na] [BMD % Change: na] RT Hip Neck: [BMD (g/cm2):0.883] [T-Score:-1.1] [Z-Score:0.4] RT Hip Total: [BMD (g/cm2):0.927] [T-score:-0.6] [Z-Score:0.6] [BMD Previous:na] [BMD % Change:na] *Indicates significant change from prior examination based on 95% confidence level. World Health Organization criteria for BMD interpretation classify patients as Normal (T-score at or above -1.0), Osteopenic (T-score between -1.0 and -2.5) or Osteoporotic (T-score at or below -2.5). LIMITATIONS AND MODIFICATION: None. FRACTURE RISK (FRAX SCORE): The ten year probability of (%): Major Osteoporotic Fracture: [9.6] Hip Fracture: [1.5] IMPRESSION: 1. Osteopenia (Low bone mass). 2. Baseline examination. 3. See below National Osteoporosis Foundation guidelines on when to potentially initiate pharmacologic therapy. Based on the National Osteoporosis Foundation Guidelines, pharmacologic treatment should be initiated in any of the following, unless clinical conditions suggest otherwise: * Any patient with prior fragility fracture of the hip or vertebrae. A spine fracture indicates 5X risk for subsequent spine fracture and 2X risk for subsequent hip fracture. * Osteoporosis (T-score <-2.5). * Postmenopausal women and men age 50 and older with low bone mass/osteopenia (T-score between -1.0 and -2.5) by DXA and 10-year major osteoporotic fracture greater than 20% or a 10-year probability of hip fracture greater than 3%. These fracture risks are supplied above in the FRAX score, if applicable. * Clinician judgement and/or patient preferences may indicate treatment for people with 10-year fracture probabilities above or below these levels. Dictated by: Dictated on workstation # [id number]
--- NOTE | 2022-01-07 16:58 | Diagnostic Imaging Report ---
PROCEDURE: MRI lumbar spine. TECHNIQUE: Multiplanar, multisequence MRI of the lumbar spine was performed without contrast. DATE: January 07, 2022. COMPARISON: None. INDICATION: 71-year-old female, low back pain. FINDINGS: There is a chronic compression deformity of L2 with approximately 80% height loss centrally. There is retropulsion of the L2 vertebral body beyond the expected posterior vertebral body margin by approximately 6.8 mm. There is associated mild to moderate spinal stenosis. There is no acute compression deformity or other acute fracture. There is no evidence of a diffuse marrow infiltrating or replacing process. There is a benign L5 vertebral body hemangioma. There is no focal concerning bone lesion. The visualized cord and conus medullaris is unremarkable and terminates at the L1-L2 level. There is moderate disc height loss at L1-L2. There is a T2 hyperintense left renal lesion measuring 9 mm in size which is not well characterized on noncontrast MRI. L1-L2: There is no disc protrusion or extrusion. The facet joints and ligamentum flavum are unremarkable. There is no foraminal narrowing. There is mild to moderate spinal canal stenosis relating to the retropulsion of L2. L2-L3: There is no disc protrusion or extrusion. There are mild bilateral facet degenerative changes without ligamentum flavum hypertrophy. There is no foraminal narrowing. There is no spinal canal stenosis. L3-L4: There is no disc bulge. The facet joints and ligamentum flavum are unremarkable. There is no foraminal narrowing. There is no spinal canal stenosis. L4-L5: There is no disc bulge. The facet joints and ligamentum flavum are unremarkable. There is no foraminal narrowing. There is no spinal canal stenosis. L5-S1: There is mild diffuse disc bulge eccentric to the right. There are mild bilateral facet degenerative changes without ligamentum flavum hypertrophy. There is no foraminal narrowing. There is no spinal canal stenosis. IMPRESSION: 1. Remote prior compression deformity of L2 with approximately 80% vertebral body height loss and retropulsion with associated mild to moderate spinal stenosis. 2. Mild additional disc and facet degenerative changes of the lumbar spine without additional site of foraminal or spinal stenosis. 3. No acute fracture. Dictated by: Dictated on workstation # [id number]
== END ==
LOC: RAD 12:30
PROVIDERS: ATTEND Family Medicine
DX: M47.816 Spondylosis without myelopathy or radiculopathy, lumbar region (principal); M48.061 Spinal stenosis, lumbar region without neurogenic claudication; M43.8X6 Other specified deforming dorsopathies, lumbar region; Z78.0 Asymptomatic menopausal state
CPT/HCPCS: 72148; 77080

== ENCOUNTER → 2022-06-30 | Outpatient (CLI) | payer MEDICARE, OTHER | LOC: CARD 13:27 | PROVIDERS: ATTEND Internal Medicine Cardiovascular Disease | DX: I08.0 Rheumatic disorders of both mitral and aortic valves (principal) | CPT/HCPCS: 93306 ==

== ENCOUNTER → 2023-10-08 | Outpatient (CLI) | payer MEDICARE, OTHER ==
[~2023-10-08] MED LIST changes: +ALBU8.5H6 IH; +ENAL-70 PO; -ENAL20TA16 PO; -NSTR15C TP; +NYST15CR36 TP; -RT-ALBUINH IH
== END ==
LOC: CARD 10:30
PROVIDERS: ATTEND Internal Medicine Cardiovascular Disease
DX: I35.2 Nonrheumatic aortic (valve) stenosis with insufficiency (principal); I10 Essential (primary) hypertension; I25.10 Atherosclerotic heart disease of native coronary artery without angina pectoris
CPT/HCPCS: 93306

== ENCOUNTER → 2023-10-12 | Outpatient (CLI) | payer MEDICARE, OTHER ==
[~2023-10-12] MED LIST changes: +CATHETER FLUSH 10 ML SYR IV PRN; +HOLD METFORMIN - RECEIVED CONTRAST 20 ML VIAL IV SCH; +IOHEXOL 350 MG/ML 100 ML (OMNIPAQUE 350) VIAL IV ONE; +NS 100 ML (IVPB) BAG IV ONE
[2023-10-12 09:29] LABS: CREATININE SERUM 1.05 MG/DL (0.60-1.30)
--- NOTE | 2023-10-12 11:06 | Diagnostic Imaging Report ---
INDICATION: Carotid stenosis. COMPARISON: No priors or relevant comparison. Post IV contrast-enhanced CT angiogram neck is performed with 2-D and 3-D reconstructions. NECK: Aortic arch patent. Branching of the great vessels conventional. The bilateral cervical vertebral arteries patent and codominant. The bilateral common carotids patent. On the left, there is heavy mixed calcified and noncalcified plaque at the bulb and bifurcation resulting in less than 50% stenosis of the proximal ICA mid to distal cervical ICA widely patent and nonfocal. On the right, more moderate mixed calcified and noncalcified carotid plaques at the bifurcation are present extending into the proximal ICA which is narrowed about 40%. Mid to distal right ICA widely patent. Images included in the field of view of the head: Calcified plaques of the intracranial cavernous segments of the carotids present without hemodynamically significant stenosis, A1 segments ACOM and proximal A2 segments patent. The bilateral middle cerebral arterial segments and primary branches included in the [id number]-yb-hvnx normal. The intradural vertebral arteries, the basilar and the proximal stretcher and drier patent. IMPRESSION: Carotid bifurcation plaques without hemodynamically significant stenosis. No dissection or segmental occlusion. Dictated by: Dictated on workstation # [id number]
== END ==
LOC: RAD 08:20
PROVIDERS: ATTEND Internal Medicine Cardiovascular Disease
DX: I65.23 Occlusion and stenosis of bilateral carotid arteries (principal)
CPT/HCPCS: 36415; 70498; 82565; 84520